=== PATIENT | male | born 1950 | race Caucasian/White ===

== ENCOUNTER 2016-07-12 03:15 | Emergency (ER) | payer OTHER ==
[2016-07-12] MEDS ORDERED: NS 1,000 ML IV ONE (03:20)
--- NOTE | 2016-07-12 03:24 | EDPHY ---
H & P HPI/ROS: HPI CHIEF COMPLAINT: "I feel weird after taking oxycodone" HISTORY OF PRESENT ILLNESS: This patient very pleasant 66-year-old male who presents emergency room by EMS due states that he had a dental extraction on Monday and since then has been having dental pain. Decided this evening around 7:00 p.m. to take oxycodone that was old, Tylenol and Motrin. Since then he states that he has felt very foggy. [place] off. Also tells me that he has a headache. Top of his head. Denies trauma. Denies neck pain, denies chest pain or shortness of breath. Denies generalized weakness. He tells me that he just feels like he is under the weather. No focal complaint. Denies chills, rigors , fevers but Past Medical History: Atrial fib, hypertension, hyperlipidemia Past Surgical History: AICD/pacer left chest, recent dental extraction Social History: Lives locally, presents by himself, history of alcohol use tobacco use and marijuana use Family History: noncontributory ROS REVIEW OF SYSTEMS: A comprehensive 10 point review of systems is otherwise negative aside from elements mentioned in the history of present illness. Exam Constitutional appears well nontoxic triage nursing summary reviewed, vital signs reviewed, awake/alert. Eyes normal conjunctivae and sclera, EOMI, PERRLA. HENT normal inspection, atraumatic, moist mucus membranes, no epistaxis, neck supple/ no meningismus, no raccoon eyes. Respiratory clear to auscultation bilaterally, normal breath sounds, no respiratory distress, no wheezing. Cardiovascular rate normal, regular rhythm, no murmur, no edema, distal pulses normal. Gastrointestinal soft, non-tender, no rebound, no guarding, normal bowel sounds, no distension, no pulsatile mass. Genitourinary no CVA tenderness. Musculoskeletal no midline vertebral tenderness, full range of motion, no calf swelling, no tenderness of extremities, no meningismus, good pulses, neurovascularly intact. Skin pink, warm, & dry, no rash, skin atraumatic. Neurologic normal neurological exam,awake, alert and oriented x 3, AAOx3, moves all 4 extremities equally, motor intact, sensory intact, CN II-XII intact , normal cerebellar, normal vision, normal speech. Psychiatric normal mood/affect. Heme/Lymph/Immune no lymphadenopathy. Differential Diagnosis: Includes but is not limited to in a particular order; hurts her disturbance, dehydration, narcotic adverse effect, side effects, infection doubt acute bleed or stroke, doubt acute [place] Medical Decision Making: plan for patient IV establishment full cardiac rehab nurse , check EKG, troponin blood work electrolytes, chest x-ray and CT head given the complaint of not feeling exactly right and headache. Re-evaluation: EKG interpretation by me on record in [employer] system. Impression time of EKG 3:27 a.m. sinus rhythm rate of 76 some motion artifact seen in 1-3 AVF borderline T-wave abnormalities seen in V4 V5 V6. Similar to previous EKG dated on 12/30/2014. CT scan of the head without IV contrast. The results of the study are negative for acute intracranial abnormality The study was read by Dr. Gaming. I viewed the images myself on the PACS system. 0423AM: Re-examination at this time blood work has been reviewed is unremarkable CT head unremarkable chest x-ray unremarkable. EKG no ischemia. Patient resting comfortably. Asking for Tylenol for a toothache. Will provide Tylenol. Patient is agreeable for discharge planning. Agreeable for discharge home. He understands return emergency room if there is any worsening symptoms questions or concerns. Source: Patient, EMS - Personal History Tetanus Vaccine Date: < 10 YEARS - Medical/Surgical History Hx Asthma: No Hx Chronic Respiratory Disease: No Hx Diabetes: Yes Hx Cardiac Disease: Yes Hx Renal Disease: No Hx Cirrhosis: No Hx Alcoholism: Yes Hx HIV/AIDS: No Hx Splenectomy or Spleen Trauma: No Other PMH: DM, acid reflux, PPM/AICD, perieodontal disease,atrial tachycardia, ablation, afib, pacemaker/defibrillator, bipolar, CHF, panic attacks, anxiety, high cholesterol, cardiomyopathy, gerd,DIABETES. - Social History Smoking Status: Former smoker Constitutional: Initial Vital Signs Temperature (C) 36.9 C 07/12/16 03:24 Heart Rate 82 07/12/16 03:24 Respiratory Rate 20 07/12/16 03:24 Blood Pressure 176/100 H 07/12/16 03:24 O2 Sat (%) 98 07/12/16 03:24 O2 Delivery Mode Room Air Allergies/Adverse Reactions: Penicillins Allergy (Verified 07/12/16 03:24) Home Medications: Medication Instructions Recorded Amitriptyline HCl 100 mg PO HS 07/16/13 Carvedilol [Coreg (*)] 25 mg PO BIDMEAL 07/16/13 Metformin HCl [Metformin 1000 mg] 1,000 mg PO BIDMEAL 07/16/13 [place]-3 Fatty Acids [Fish Oil 1000 4,000 mg PO DAILY 07/16/13 mg (*)] Aspirin [Aspirin 81mg (*)] 81 mg PO DAILY 11/26/14 Atorvastatin Calcium [Lipitor 40 40 mg PO DAILY06 11/26/14 mg (*)] Fenofibrate [Tricor 145 mg (*)] 145 mg PO DAILY 11/26/14 Gabapentin [Neurontin 300 MG (*)] mg PO TID 11/26/14 Herbals/Supplements -Info Only 1 ea PO DAILY 11/26/14 Insulin NPH Human Isophane 60 unit SQ HS 11/26/14 [Novolin N] clonazePAM [klonoPIN (*)] 2 mg PO HS 11/26/14 Levothyroxine PO DAILY06 10/20/15 Omeprazole Magnesium [Prilosec Otc] 20 mg PO DAILY06 10/20/15 hydrOXYzine HCL [Vistaril] 50 mg PO DAILY06 10/20/15 Bacitracin Ointment 1 [place] TP BID #1 pkt 12/21/15 Cephalexin [Keflex] 500 mg PO Q6H #28 cap 12/21/15 Medical Decision Making - Data Points Laboratory Results: Laboratory Results 07/12/16 03:18 07/12/16 03:18 07/12/16 07/12/16 07/12/16 03:18 03:18 03:18 WBC 13.76 10^3/uL H 10^3/uL (3.80-9.50) RBC 5.08 10^6/uL 10^6/uL (4.40-6.38) Hgb 14.7 g/dL g/dL (13.7-17.5) Hct 43.7 % % (40.0-51.0) MCV 86.0 fL fL (81.5-99.8) MCH 28.9 pg pg (27.9-34.1) MCHC 33.6 g/dL g/dL (32.4-36.7) RDW 13.3 % % (11.5-15.2) Plt Count 287 10^3/uL 10^3/uL (150-400) MPV 10.0 fL fL (8.7-11.7) Neut % (Auto) 59.5 % % (39.3-74.2) Lymph % (Auto) 21.3 % % (15.0-45.0) [place] % (Auto) 10.0 % % (4.5-13.0) Eos % (Auto) 8.1 % H % (0.6-7.6) Baso % (Auto) 0.7 % % (0.3-1.7) Nucleat RBC Rel Count 0.0 % % (0.0-0.2) Absolute Neuts (auto) 8.19 10^3/uL H 10^3/uL (1.70-6.50) Absolute Lymphs (auto) 2.93 10^3/uL 10^3/uL (1.00-3.00) Absolute Monos (auto) 1.37 10^3/uL H 10^3/uL (0.30-0.80) Absolute Eos (auto) 1.12 10^3/uL H 10^3/uL (0.03-0.40) Absolute Basos (auto) 0.10 10^3/uL 10^3/uL (0.02-0.10) Absolute Nucleated RBC 0.00 10^3/uL 10^3/uL (0-0.01) Immature Gran % 0.4 % % (0.0-1.1) Immature Gran # 0.05 10^3/uL 10^3/uL (0.00-0.10) PT 13.1 SEC SEC (12.0-15.0) INR 1.00 (0.83-1.16) APTT 23.6 SEC SEC (23.0-38.0) Sodium 133 mEq/L L mEq/L (134-144) Potassium 4.7 mEq/L mEq/L (3.5-5.2) Chloride 96 mEq/L L mEq/L (97-110) Carbon Dioxide 25 mEq/l mEq/l (22-31) Anion Gap 12 mEq/L mEq/L (8-16) BUN 20 mg/dL mg/dL (7-23) Creatinine 0.9 mg/dL mg/dL (0.7-1.3) Estimated GFR > 60 Glucose 122 mg/dL H mg/dL (70-100) Calcium 10.0 mg/dL mg/dL (8.5-10.4) Magnesium 1.7 mg/dL mg/dL (1.6-2.3) Total Bilirubin 1.0 mg/dL mg/dL (0.1-1.4) Conjugated Bilirubin 0.4 mg/dL mg/dL (0.0-0.5) Unconjugated Bilirubin 0.6 mg/dL mg/dL (0.0-1.1) AST 25 IU/L IU/L (17-59) ALT 32 IU/L IU/L (21-72) Alkaline Phosphatase 56 IU/L IU/L (38-126) Creatine Kinase 134 IU/L IU/L (0-224) CK-MB (CK-2) Fraction 1.90 ng/mL ng/mL (0-3.19) Troponin I < 0.012 ng/mL ng/mL (0-0.034) NT-Pro-B Natriuret Pep 121 pg/mL pg/mL (0-125) Total Protein 7.8 g/dL g/dL (6.3-8.2) Albumin 4.2 g/dL g/dL (3.5-5.0) Lipase 106.0 IU/L IU/L (23-300) Medications Given: Discontinued Medications Sodium Chloride (Ns) 1,000 mls @ 0 mls/hr IV ONCE ONE PRN Reason: Wide Open Stop: 07/12/16 03:21 Last Admin: 07/12/16 03:29 Dose: 1,000 mls Departure - Departure Disposition: Home, Routine, Self-Care Clinical Impression: Toothache Condition: Good Instructions: Toothache (ED) Referrals: Patient,NotPresent [Unknown] - As per Instructions
[2016-07-12 03:27] VITALS: RESP 20; TEMP 98.4
--- NOTE | 2016-07-12 03:29 | CPEKG ---
Heart Rate: 76 RR Interval: 789 P-R Interval: 184 QRSD Interval: 90 QT Interval: 392 QTC Interval: 441 P [place]: 62 QRS [place]: -20 T Wave [place]: -23 EKG Severity - BORDERLINE ECG - EKG Impression: SINUS RHYTHM EKG Impression: BORDERLINE LEFT AXIS DEVIATION EKG Impression: BORDERLINE T ABNORMALITIES, DIFFUSE LEADS Electronically Signed By: Mo Schilling 13-Jul-2016 23:55:19
[2016-07-12 03:34] LABS: % IMMATURE GRANULYOCYTES 0.4 % (0.0-1.1); ABSOLUTE IMMATURE GRANULOCYTES 0.05 10^3/uL (0.00-0.10); ADD DIFF? NO; ADD MORPH? NO; ADD SCAN? NO; ATYPICAL LYMPHOCYTE FLAG 10 (0-99); FRAGMENT RBC FLAG 0 (0-99); HEMATOCRIT 43.7 % (40.0-51.0); HEMOGLOBIN 14.7 g/dL (13.7-17.5); LEFT SHIFT FLG 0 (0-99); LIPEMIA HEMOLYSIS FLAG 80 (0-99); MEAN CELL HEMOGLOBIN 28.9 pg (27.9-34.1); MEAN CELL HEMOGLOBIN CONCENTR. 33.6 g/dL (32.4-36.7); PLATELET CLUMPS FLAG 0 (0-99); PLATELET COUNT 287 10^3/uL (150-400); RED BLOOD CELL COUNT 5.08 10^6/uL (4.40-6.38); RED CELL DISTRIBUTION WIDTH 13.3 % (11.5-15.2)
[2016-07-12 03:41] LABS: ALANINE AMINOTRANSFERASE 32 IU/L (21-72); ALBUMIN 4.2 g/dL (3.5-5.0); ALKALINE PHOSPHATASE 56 IU/L (38-126); ANION GAP 12 mEq/L (8-16); ASPARTATE AMINOTRANSFERASE 25 IU/L (17-59); BILIRUBIN-CONJUGATED 0.4 mg/dL (0.0-0.5); BILIRUBIN-UNCONJUGATED 0.6 mg/dL (0.0-1.1); CARBON DIOXIDE 25 mEq/l (22-31); CHLORIDE 96 mEq/L (97-110); CREATININE 0.9 mg/dL (0.7-1.3); GLOMERULAR FILTRATION RATE > 60; GLUCOSE 122 mg/dL (70-100); MAGNESIUM 1.7 mg/dL (1.6-2.3); POTASSIUM 4.7 mEq/L (3.5-5.2); SODIUM 133 mEq/L (134-144); TOTAL PROTEIN 7.8 g/dL (6.3-8.2)
[2016-07-12 03:53] LABS: TROPONIN I < 0.012 ng/mL (0-0.034)
[2016-07-12 03:54] LABS: APTT 23.6 SEC (23.0-38.0); PROTIME(PATIENT) 13.1 SEC (12.0-15.0)
[2016-07-12] MEDS ORDERED: ACETAMINOPHEN 500 MG TAB PO ONE (04:22)
[2016-07-12 04:51] VITALS: BP 163/99; PULSE 79; O2SAT 91
== END 2016-07-12 04:51 | disposition home or self-care (01) ==
LOC: EDUNIT#
DX: K08.89 Other specified disorders of teeth and supporting structures (principal); I10 Essential (primary) hypertension; E11.9 Type 2 diabetes mellitus without complications; I50.9 Heart failure, unspecified; Z79.82 Long term (current) use of aspirin; Z79.4 Long term (current) use of insulin; Z87.891 Personal history of nicotine dependence

== ENCOUNTER 2016-09-19 15:20 | Emergency (ER) | payer OTHER ==
--- NOTE | 2016-09-19 15:38 | CPEKG ---
Heart Rate: 83 RR Interval: 723 P-R Interval: 184 QRSD Interval: 94 QT Interval: 372 QTC Interval: 437 P [place]: 43 QRS [place]: -20 T Wave [place]: 1 EKG Severity - BORDERLINE ECG - EKG Impression: BORDERLINE LEFT AXIS DEVIATION EKG Impression: SINUS Electronically Signed By: Toma Hung 19-Sep-2016 23:02:44
--- NOTE | 2016-09-19 15:51 | EDPHY ---
H & P Stated Complaint: "I just don't feel right". Has a pacemaker. Time Seen by Provider: 09/19/16 15:31 HPI/ROS: CHIEF COMPLAINT: I feel horrible, weird. I can' t explain it. HISTORY OF PRESENT ILLNESS: This is a 66-year-old male insulin-dependent diabetic with a pacemaker/AICD, history of CHF and cardiomyopathy who presents stating that he just feels "weird". He denies pain. He specifically denies chest pain, shortness of breath, abdominal pain, recent vomiting or diarrhea. He states that he feels as if he might have heat stroke. He has not been in any extreme heat. This feeling has persisted throughout the day. He felt well yesterday. However, he states [place] like this and had to sit in the shade. He checked his blood sugar before coming to the emergency department and it was 208. He has not been checking it regularly. He takes 40 units of Novolin in the morning and in the evening. He took this morning's dose and he ate a meal. He has been compliant with his medications. REVIEW OF SYSTEMS: A ten point review of systems was performed and is negative with the exception of the items mentioned in the HPI. Source: Patient, Old records - Personal History Tetanus Vaccine Date: < 10 YEARS - Medical/Surgical History Hx Asthma: No Hx Chronic Respiratory Disease: No Hx Diabetes: Yes Hx Cardiac Disease: Yes Hx Renal Disease: No Hx Cirrhosis: No Hx Alcoholism: Yes Hx HIV/AIDS: No Hx Splenectomy or Spleen Trauma: No Other PMH: 1. atrial tachycardia, ablation, afib 2. pacemaker/defibrillator, 3. bipolar 4. CHF 5. panic attacks, anxiety 6. high cholesterol 7. cardiomyopathy, 8. gerd 9.DIABETES. - Social History Smoking Status: Former smoker Drug Use: None Additional Social History: He is not . He collects disability. - Physical Exam Exam: General Appearance: Alert. Vital signs reviewed. Blood pressure at triage 157 /99. Eyes: Pupils equal and round, no conjunctival injection, no discharge. Anicteric. ENT, Mouth: Mucous membranes are moist, no oropharyngeal erythema or edema. Neck: No lymphadenopathy, supple. No jugular venous distention. Respiratory: Lungs are clear to auscultation; no wheezes, rales, or rhonchi. Cardiovascular: Regular rate and rhythm; no murmur, rub, or gallop. Gastrointestinal: Abdomen is soft and nontender, no masses or organomegaly, bowel sounds normal. Skin: Warm and dry, no rashes on exposed skin, normal color. Back: Nontender to palpation over the thoracolumbar spine. No CVAT. Extremities: No lower extremity edema, no calf tenderness or swelling. Neurological: Alert and oriented. Moving all four extremities easily and equally. Cranial nerves II through XII are examined and are intact (visual acuity not tested). Strength is 5 over 5 bilaterally with testing of all major motor groups. Sensation is intact to light touch over all 4 extremities. Psychiatric: Normal affect. Constitutional: Initial Vital Signs Temperature (C) 36.4 C 09/19/16 15:26 Heart Rate 86 09/19/16 15: Respiratory Rate 18 09/19/16 15:26 Blood Pressure 157/99 H 09/19/16 15: O2 Sat (%) 98 09/19/16 15:26 O2 Delivery Mode Room Air O2 (L/minute) 2 Allergies/Adverse Reactions: Penicillins Allergy (Verified 07/12/16 03:24) Home Medications: Medication Instructions Recorded Amitriptyline HCl 100 mg PO HS 07/16/13 Carvedilol [Coreg (*)] 25 mg PO BIDMEAL 07/16/13 Metformin HCl [Metformin 1000 mg] 1,000 mg PO BIDMEAL 07/16/13 [place]-3 Fatty Acids [Fish Oil 1000 4,000 mg PO DAILY 07/16/13 mg (*)] Aspirin [Aspirin 81mg (*)] 81 mg PO DAILY 11/26/14 Atorvastatin Calcium [Lipitor 40 40 mg PO DAILY06 11/26/14 mg (*)] Fenofibrate [Tricor 145 mg (*)] 145 mg PO DAILY 11/26/14 Gabapentin [Neurontin 300 MG (*)] mg PO TID 11/26/14 Herbals/Supplements -Info Only 1 ea PO DAILY 11/26/14 Insulin NPH Human Isophane 60 unit SQ HS 11/26/14 [Novolin N] clonazePAM [klonoPIN (*)] 2 mg PO HS 11/26/14 Levothyroxine PO DAILY06 10/20/15 Omeprazole Magnesium [Prilosec Otc] 20 mg PO DAILY06 10/20/15 hydrOXYzine HCL [Vistaril] 50 mg PO DAILY06 10/20/15 Bacitracin Ointment 1 [place] TP BID #1 pkt 12/21/15 Cephalexin [Keflex] 500 mg PO Q6H #28 cap 12/21/15 Medical Decision Making - Diagnostics EKG Interpretation: 12 lead EKG is interpreted in Trace master View by emergency department physician. Sinus rhythm with a rate of 83. ED Course/Re-evaluation: I spoke with the furniture lumber production worker oncology registrar about this patient's presentation. Echocardiogram is recommended. Echocardiogram shows ejection fraction 50-55%. There is evidence of diastolic dysfunction. Labs are reviewed and are essentially normal. His blood pressure has normalized during his stay in the emergency department. He was examined 2 more times and at 6:45 p.m., he is feeling better. He is comfortable returning home. He is due to visit his furniture lumber production worker and will call to schedule an appointment tomorrow morning. We discussed the danger signs that should prompt him to return to the emergency department. It is unclear to me exactly what has caused his malaise. His temperature was normal when he arrived here and I do not really suspect heat exhaustion although that is his main concern. His heart rate has been normal and I do not suspect pacemaker malfunction. Troponin is normal. Chest x-ray does not show evidence of heart failure or infection. His electrolytes are normal. Part of what he describes sounds a bit like presyncope and I am going to give him information concerning presyncope. Differential Diagnosis: Syncope including but not limited to vasovagal syncope, arrhythmia, dehydration , and blood loss. - Data Points Laboratory Results: Laboratory Results 09/19/16 15:45 09/19/16 15:45 Departure - Departure Disposition: Home, Routine, Self-Care Clinical Impression: Pre-syncope Condition: Good Instructions: Near Syncope (ED) Additional Instructions: Call tomorrow morning to schedule an appointment with her furniture lumber production worker. If you have any new or concerning symptoms, if you again feel poorly, if you develop chest pain or shortness of breath-- come back and we will take another look. Referrals: LUISANA CHATTERJEE [Primary Care Provider] - As per Instructions Luis Gooden MD [Medical Doctor] - As per Instructions
[2016-09-19 15:53] LABS: % IMMATURE GRANULYOCYTES 0.3 % (0.0-1.1); ABSOLUTE IMMATURE GRANULOCYTES 0.03 10^3/uL (0.00-0.10); ADD DIFF? NO; ADD MORPH? NO; ADD SCAN? NO; ATYPICAL LYMPHOCYTE FLAG 10 (0-99); FRAGMENT RBC FLAG 0 (0-99); HEMOGLOBIN 14.3 g/dL (13.7-17.5); LEFT SHIFT FLG 0 (0-99); LIPEMIA HEMOLYSIS FLAG 90 (0-99); MEAN CELL HEMOGLOBIN 28.9 pg (27.9-34.1); MEAN PLATELET VOLUME 10.2 fL (8.7-11.7); PLATELET CLUMPS FLAG 0 (0-99); PLATELET COUNT 267 10^3/uL (150-400); RED BLOOD CELL COUNT 4.94 10^6/uL (4.40-6.38)
[2016-09-19 16:13] LABS: ANION GAP 13 mEq/L (8-16); CARBON DIOXIDE 19 mEq/l (22-31); CHLORIDE 102 mEq/L (97-110); CREATININE 0.8 mg/dL (0.7-1.3); GLOMERULAR FILTRATION RATE > 60; GLUCOSE 124 mg/dL (70-100); POTASSIUM 4.4 mEq/L (3.5-5.2); SODIUM 134 mEq/L (134-144)
[2016-09-19 16:25] LABS: TROPONIN I < 0.012 ng/mL (0-0.034)
--- NOTE | 2016-09-19 17:17 | ECHO ---
[id number] + + [address] : : [place] [address] : : [phone] + Adult Echocardiographic Report + ------+ :Name: ROSS TARANGO SStudy Date: 09/19/2016 04:31 PM : : Hospital Admission Number: [id number] Locati on: ER: :: 1950 Gender: Male Height: 72 in : :Age: 66 yrs Race: WH,White Weight: 200 lb : :Reason For Study: Fatigue/presyncope : : BSA: 2.1 meter s2 : :History: Pacer/Cardiomyopathy/ablation : + ------+ MMode/2D Measurements \T\ Calculations LVLd ap4: 7.7 cm SV(MOD-sp4): 36.0 ml EDV(MOD-sp4): 67.0 ml LVLs ap4: 6.7 cm ESV(MOD-sp4): 31.0 ml EF(MOD-sp4): 53.7 % Normal Measurement Values: + + :LVIDd (3.5-5.7cm) IVSd (0.6-1.1cm) LVPWd (0.6-1.1cm) Aortic Root (2.0-3.7cm)Left Atrium (1.5-4.0cm): :LV Vol(d) (76-115ml) LV Vol(s) (29-48ml) [place] Fraction (50-65%)PV Eleazar (0.6- 1.2m/s) TV Eleazar (0.4-1.0m/s) : :MV E Eleazar (0.8-1.0m/s)MV A Eleazar (0.3-1.0m/s)LVOT Eleazar (0.7-1.2m/s) Asc Ao Eleazar ( 0.9-1.8m/s) : + + Doppler Measurements \T\ Calculations MV E max eleazar: 45.9 cm/sec MV A max eleazar: 70.1 cm/sec MV E/A: 0.65 Left Ventricle The left ventricle is normal in size. EF estimate is 50-55%. There is Doppler evidence for diastolic dysfunction. Right Ventricle There is a pacemaker lead in the right ventricle. Conclusion Limited 2-D echo. Limited echo to evaluate LV function. EF estimate is 50-55%. There is Doppler evidence for diastolic dysfunction. Final Reading Physician: Verito Baziz signed on 09/19/2016 05:16 PM Ordering Physician: BALBIR EAGLE Performed By: Kiah Day RDCS
[2016-09-19 18:09] VITALS: O2SAT 97
[2016-09-19 19:06] VITALS: BP 125/92; PULSE 78; RESP 20; TEMP 98.1
== END 2016-09-19 19:07 | disposition home or self-care (01) ==
DX: R55 Syncope and collapse (principal); E11.65 Type 2 diabetes mellitus with hyperglycemia; Z79.4 Long term (current) use of insulin; Z79.84 Long term (current) use of oral hypoglycemic drugs; Z87.891 Personal history of nicotine dependence

== ENCOUNTER → 2016-09-26 | Outpatient (CLI) | payer OTHER ==
[~2016-09-26] MED LIST: IOPAMIDOL (ISOVUE-300) 100 ML BTL ONE
== END ==
LOC: FIMAGING 13:55
PROVIDERS: ATTEND Family Medicine
DX: M51.34 Other intervertebral disc degeneration, thoracic region (principal); M51.36 Other intervertebral disc degeneration, lumbar region; M51.37 Other intervertebral disc degeneration, lumbosacral region
CPT/HCPCS: 72129; 72132; Q9967

== ENCOUNTER 2016-09-27 19:27 | Emergency (ER) | payer OTHER ==
--- NOTE | 2016-09-27 19:32 | EDPHY ---
HPI/HX/ROS/PE/MDM Narrative: CHIEF COMPLAINT: "Feeling strange" HISTORY OF PRESENT ILLNESS: The patient is a 66-year-old male, brought in by EMS for "an overwhelming feeling that my physical body is going to quit working ". The patient told EMS he ate multiple edibles, took CBD, and 5mg Valium today for his back pain. After taking all of this he walked to the fire station and told the fire team he felt strange. Patient states "my body takes a downward spiral where I'm just close to dying." He feels as though he has been poisoned and states this feeling comes intermittently. The patient was here on 09/19 for complaints of feeling "weird". He had an ECHO performed that showed 50-55% ejection fraction. The patient reports feeling slight nausea and shortness of breath today. He denies chest pain or palpitations. During transport the patient was found to be 86% on room air, Pulse 94. No fever, chills, vomiting, diarrhea, urinary complaints, or lightheadedness. REVIEW OF SYSTEMS: Aside from elements discussed in the HPI, a comprehensive 10-point review of systems was reviewed and is negative. PAST MEDICAL HISTORY: Atrial tachycardia, ablation, Afib, Pacemaker/ defibrillator, Bipolar, CHF, Panic attacks, Anxiety, High cholesterol, Cardiomyopathy, GERD, Diabetes. SOCIAL HISTORY: Lives in [place] on his family property. No alcohol use. Former cigarette smoker. VITAL SIGNS: Reviewed by me GENERAL: Well-developed, well-nourished, resting comfortably in no respiratory distress. HEENT: Atraumatic. Eyes: No icterus, no injection. 5mm pupils, reactive. Mouth: dry mucous membranes. No erythema or lesions. Neck: supple with no adenopathy. LUNGS: Clear to auscultation bilaterally, no wheezes, rhonchi or rales. CARDIAC: Slightly tachycardic, regular rhythm, no rubs, murmurs or gallops. ABDOMEN: Obese, nontender BACK: No CVA tenderness. EXTREMITIES: No trauma. No edema. Range of motion is normal throughout. NEURO: Alert and oriented, grossly nonfocal. SKIN: Warm and dry, no rash. PSYCHIATRIC: Normal mentation, no agitation. Portions of this note were transcribed by a medical accountant. I personally performed a history, physical exam, medical decision making, and confirmed accuracy of information the transcribed note. ED Course: Patient presents with an overall strange feeling after eating multiple edibles, taking CBD, as well as 5mg Valium today. He notes some nausea and shortness of breath. I reviewed the patient's past medical records. Patient was here 09/19/16 and had ECHO done that reveal ejection fraction 50-55%. Plan for EKG, lab work including BMP, CBC, Troponin, LFTs, Creatinine. UA and drug screen ordered. 12-LEAD EKG: Please see the full report in [facility]. My interpretation: Sinus rhythm, nonspecific T wave changes. Patient has normal lab work. Acetaminophen level is not elevated. 10:00 p.m.: I reevaluated the patient. He is feeling better, no longer feeling "doomed". Patient would like to be discharged home. MDM: Differential diagnoses for the patient's symptom complex was considered including but not limited to PTSD, anxiety, depression, suicidal ideation, electrolyte abnormalities, drug or alcohol use, drug or alcohol withdrawal, hypoxemia, hypoglycemia. - Data Points Laboratory Results: Laboratory Results 09/27/16 20:00 09/27/16 20:00 09/27/16 09/27/16 09/27/16 21:25 20:00 20:00 WBC RBC Hgb Hct MCV MCH MCHC RDW Plt Count MPV Neut % (Auto) Lymph % (Auto) [place] % (Auto) Eos % (Auto) Baso % (Auto) Nucleat RBC Rel Count Absolute Neuts (auto) Absolute Lymphs (auto) Absolute Monos (auto) Absolute Eos (auto) Absolute Basos (auto) Absolute Nucleated RBC Immature Gran % Immature Gran # Sodium 133 mEq/L L mEq/L (134-144) Potassium 5.1 mEq/L mEq/L (3.5-5.2) Chloride 104 mEq/L mEq/L (97-110) Carbon Dioxide 17 mEq/l L mEq/l (22-31) Anion Gap 12 mEq/L mEq/L (8-16) BUN 26 mg/dL H mg/dL (7-23) Creatinine 1.1 mg/dL mg/dL (0.7-1.3) Estimated GFR > 60 Glucose 161 mg/dL H mg/dL (70-100) Calcium 9.3 mg/dL mg/dL (8.5-10.4) Total Bilirubin 0.7 mg/dL mg/dL (0.1-1.4) Conjugated Bilirubin 0.3 mg/dL mg/dL (0.0-0.5) Unconjugated Bilirubin 0.4 mg/dL mg/dL (0.0-1.1) AST 31 IU/L IU/L (17-59) ALT 43 IU/L IU/L (21-72) Alkaline Phosphatase 55 IU/L IU/L (38-126) Creatine Kinase 186 IU/L IU/L (0-224) Troponin I < 0.012 ng/mL ng/mL (0-0.034) Total Protein 7.3 g/dL g/dL (6.3-8.2) Albumin 3.9 g/dL g/dL (3.5-5.0) Lipase 114.0 IU/L IU/L (23-300) Urine Color PALE YELLOW Urine Appearance CLEAR Urine pH 5.0 (5.0-7.5) Ur Specific [place] 1.012 (1.002-1.030) Urine Protein NEGATIVE (NEGATIVE) Urine Ketones NEGATIVE (NEGATIVE) Urine Blood NEGATIVE (NEGATIVE) Urine Nitrate NEGATIVE (NEGATIVE) Urine Bilirubin NEGATIVE (NEGATIVE) Urine Urobilinogen NEGATIVE EU EU (0.2-1.0) Ur Leukocyte Esterase NEGATIVE (NEGATIVE) Urine RBC 1-3 /hpf /hpf (0-3) Urine WBC 1-3 /hpf /hpf (0-3) Ur Epithelial Cells NONE SEEN /lpf /lpf (NONE-1+) Urine Mucus TRACE /lpf /lpf (NONE-1+) Urine Sperm PRESENT /hpf /hpf (NONE SEEN) Urine Glucose NEGATIVE (NEGATIVE) Salicylates < 1.0 mg/dL L mg/dL (2.0-20.0) Urine Opiates Screen NEGATIVE (NEGATIVE) Acetaminophen < 10 mcg/mL L mcg/mL (10.0-30.0) Urine Barbiturates NEGATIVE (NEGATIVE) Ur Phencyclidine Scrn NEGATIVE (NEGATIVE) Ur Amphetamine Screen NEGATIVE (NEGATIVE) U Benzodiazepines Scrn NON-NEGATIVE H (NEGATIVE) Urine Cocaine Screen NEGATIVE (NEGATIVE) U Marijuana (THC) Screen NON-NEGATIVE H (NEGATIVE) 09/27/16 20:00 WBC 9.79 10^3/uL H 10^3/uL (3.80-9.50) RBC 4.45 10^6/uL 10^6/uL (4.40-6.38) Hgb 12.8 g/dL L g/dL (13.7-17.5) Hct 38.4 % L % (40.0-51.0) MCV 86.3 fL fL (81.5-99.8) MCH 28.8 pg pg (27.9-34.1) MCHC 33.3 g/dL g/dL (32.4-36.7) RDW 14.3 % % (11.5-15.2) Plt Count 283 10^3/uL 10^3/uL (150-400) MPV 11.1 fL fL (8.7-11.7) Neut % (Auto) 59.9 % % (39.3-74.2) Lymph % (Auto) 23.1 % % (15.0-45.0) [place] % (Auto) 10.1 % % (4.5-13.0) Eos % (Auto) 5.5 % % (0.6-7.6) Baso % (Auto) 1.0 % % (0.3-1.7) Nucleat RBC Rel Count 0.0 % % (0.0-0.2) Absolute Neuts (auto) 5.86 10^3/uL 10^3/uL (1.70-6.50) Absolute Lymphs (auto) 2.26 10^3/uL 10^3/uL (1.00-3.00) Absolute Monos (auto) 0.99 10^3/uL H 10^3/uL (0.30-0.80) Absolute Eos (auto) 0.54 10^3/uL H 10^3/uL (0.03-0.40) Absolute Basos (auto) 0.10 10^3/uL 10^3/uL (0.02-0.10) Absolute Nucleated RBC 0.00 10^3/uL 10^3/uL (0-0.01) Immature Gran % 0.4 % % (0.0-1.1) Immature Gran # 0.04 10^3/uL 10^3/uL (0.00-0.10) Sodium Potassium Chloride Carbon Dioxide Anion Gap BUN Creatinine Estimated GFR Glucose Calcium Total Bilirubin Conjugated Bilirubin Unconjugated Bilirubin AST ALT Alkaline Phosphatase Creatine Kinase Troponin I Total Protein Albumin Lipase Urine Color Urine Appearance Urine pH Ur Specific [place] Urine Protein Urine Ketones Urine Blood Urine Nitrate Urine Bilirubin Urine Urobilinogen Ur Leukocyte Esterase Urine RBC Urine WBC Ur Epithelial Cells Urine Mucus Urine Sperm Urine Glucose Salicylates Urine Opiates Screen Acetaminophen Urine Barbiturates Ur Phencyclidine Scrn Ur Amphetamine Screen U Benzodiazepines Scrn Urine Cocaine Screen U Marijuana (THC) Screen Medications Given: Discontinued Medications Sodium Chloride (Ns) 500 mls @ 1,000 mls/hr IV ONCE ONE PRN Reason: Protocol Stop: 09/27/16 20:20 Last Admin: 09/27/16 20:00 Dose: 500 mls General Initial Vital Signs: Initial Vital Signs Temperature (C) 37.2 C 09/27/16 19:35 Heart Rate 108 H 09/27/16 19:35 Respiratory Rate 18 09/27/16 19:35 Blood Pressure 133/91 H 09/27/16 19:35 O2 Sat (%) 92 09/27/16 19:35 O2 Delivery Mode Room Air Allergies/Adverse Reactions: Penicillins Allergy (Verified 07/12/16 03:24) Home Medications: Medication Instructions Recorded Carvedilol [Coreg (*)] 25 mg PO BIDMEAL 07/16/13 Metformin HCl [Metformin 1000 mg] 1,000 mg PO BIDMEAL 07/16/13 [place]-3 Fatty Acids [Fish Oil 1000 4,000 mg PO DAILY 07/16/13 mg (*)] Aspirin [Aspirin 81mg (*)] 81 mg PO DAILY 11/26/14 Herbals/Supplements -Info Only 1 ea PO DAILY 11/26/14 Insulin NPH Human Isophane 60 unit SQ HS 11/26/14 [Novolin N] clonazePAM [klonoPIN (*)] 2 mg PO HS 11/26/14 Levothyroxine PO DAILY06 10/20/15 Omeprazole Magnesium [Prilosec Otc] 20 mg PO DAILY06 10/20/15 Diazepam [Valium 5 MG (*)] 09/27/16 Lisinopril 09/27/16 Seroquel 09/27/16 Departure - Departure Disposition: Home, Routine, Self-Care Clinical Impression: Anxiety, Marijuana use Condition: Good Instructions: Medicinal Use of Cannabis (ED), Anxiety (ED) Additional Instructions: Please stop using marijuana. Drink plenty of fluids. Followup with your primary care physician as needed. Referrals: LUISANA CHATTERJEE [Primary Care Provider] - As per Instructions Report Scribed for: Nadya Brambila Report Scribed by: Maira Montano Date of Report: 09/27/16 Time of Report: 19:50
[2016-09-27 19:37] VITALS: TEMP 99
[2016-09-27] MEDS ORDERED: NS 500 ML IV ONE (19:51)
[2016-09-27 20:20] LABS: % IMMATURE GRANULYOCYTES 0.4 % (0.0-1.1); ABSOLUTE IMMATURE GRANULOCYTES 0.04 10^3/uL (0.00-0.10); ADD DIFF? NO; ADD MORPH? NO; ADD SCAN? NO; ATYPICAL LYMPHOCYTE FLAG 0 (0-99); FRAGMENT RBC FLAG 0 (0-99); HEMATOCRIT 38.4 % (40.0-51.0); HEMOGLOBIN 12.8 g/dL (13.7-17.5); LEFT SHIFT FLG 0 (0-99); LIPEMIA HEMOLYSIS FLAG 80 (0-99); MEAN CELL HEMOGLOBIN 28.8 pg (27.9-34.1); MEAN CELL HEMOGLOBIN CONCENTR. 33.3 g/dL (32.4-36.7); MEAN CELL VOLUME 86.3 fL (81.5-99.8); MEAN PLATELET VOLUME 11.1 fL (8.7-11.7); PLATELET CLUMPS FLAG 70 (0-99); PLATELET COUNT 283 10^3/uL (150-400); RED BLOOD CELL COUNT 4.45 10^6/uL (4.40-6.38); RED CELL DISTRIBUTION WIDTH 14.3 % (11.5-15.2)
--- NOTE | 2016-09-27 20:25 | CPEKG ---
Heart Rate: 98 RR Interval: 612 P-R Interval: 180 QRSD Interval: 90 QT Interval: 356 QTC Interval: 455 P [place]: 44 QRS [place]: -23 T Wave [place]: -8 EKG Severity - BORDERLINE ECG - EKG Impression: SINUS RHYTHM EKG Impression: BORDERLINE LEFT AXIS DEVIATION EKG Impression: BORDERLINE T ABNORMALITIES, INFERIOR LEADS Electronically Signed By: Nadya Brambila 28-Sep-2016 00:42:25
[2016-09-27 20:48] LABS: ALANINE AMINOTRANSFERASE 43 IU/L (21-72); ALBUMIN 3.9 g/dL (3.5-5.0); ALKALINE PHOSPHATASE 55 IU/L (38-126); ANION GAP 12 mEq/L (8-16); ASPARTATE AMINOTRANSFERASE 31 IU/L (17-59); BILIRUBIN,TOTAL 0.7 mg/dL (0.1-1.4); BILIRUBIN-CONJUGATED 0.3 mg/dL (0.0-0.5); BILIRUBIN-UNCONJUGATED 0.4 mg/dL (0.0-1.1); CALCIUM 9.3 mg/dL (8.5-10.4); CARBON DIOXIDE 17 mEq/l (22-31); CHLORIDE 104 mEq/L (97-110); CREATININE 1.1 mg/dL (0.7-1.3); GLOMERULAR FILTRATION RATE > 60; GLUCOSE 161 mg/dL (70-100); POTASSIUM 5.1 mEq/L (3.5-5.2); SODIUM 133 mEq/L (134-144); TOTAL PROTEIN 7.3 g/dL (6.3-8.2)
[2016-09-27 20:50] LABS: SALICYLATE < 1.0 mg/dL (2.0-20.0)
[2016-09-27 20:55] LABS: TROPONIN I < 0.012 ng/mL (0-0.034)
[2016-09-27 21:30] VITALS: RESP 16
[2016-09-27 21:37] LABS: COLOR PALE YELLOW; LEUKOCYTE ESTERASE,URINE NEGATIVE (NEGATIVE); NITRITE,URINE NEGATIVE (NEGATIVE)
[2016-09-27 21:57] LABS: MUCUS TRACE /lpf (NONE-1+)
[2016-09-27 22:47] VITALS: BP 118/95; PULSE 81; O2SAT 92
== END 2016-09-27 22:47 | disposition home or self-care (01) ==
LOC: EDUNIT#
DX: F41.9 Anxiety disorder, unspecified (principal); F12.90 Cannabis use, unspecified, uncomplicated; I50.9 Heart failure, unspecified; E11.9 Type 2 diabetes mellitus without complications; E86.9 Volume depletion, unspecified
CPT/HCPCS: 80305; G0480

== ENCOUNTER 2016-12-24 09:27 | Inpatient (IN) | payer OTHER ==
--- NOTE | 2016-12-24 09:27 | EDPHY ---
Medical Decision Making ED Course/Re-evaluation: CHIEF COMPLAINT: HISTORY OF PRESENT ILLNESS: must have 4 elements: Location, Quality, Severity , Duration, Timing, Context, Modifying Factors, Associated Signs and Symptoms REVIEW OF SYSTEMS: A 10 point review of systems was performed and is negative with the exception of the elements mentioned in the history of present illness. PHYSICAL EXAM: HR, BP, O2 Sat, RR. Temp noted General Appearance: Alert, well hydrated, appropriate, and non-toxic appearing. Head: Atraumatic without scalp tenderness or obvious injury Eyes: Pupils equal, round, reactive to light and accommodation, EOMI, no trauma , no injection. Ears: Clear bilaterally, no perforation, normal landmarks Nose: Atraumatic, no rhinorrhea, clear. Throat: There is no erythema or exudates, no lesions, normal tonsils, mucus membranes moist. Neck: Supple, 2+ carotid upstroke, nontender, no lymphadenopathy. Respiratory: No retractions, no distress, no wheezes, and no accessory muscle use. Lungs are clear to auscultation bilaterally. Cardiovascular: Regular rate and rhythm, no murmurs, rubs, or gallops. Bilateral carotid, radial, dorsalis pedis, and posterior tibial pulses intact. Good capillary refill all extremities. Gastrointestinal: Abdomen is soft, nontender, non-distended, no masses, no rebound, no guarding, no peritoneal signs. Musculoskeletal: Normal active ROM of all extremities, atraumatic. Neurological: Alert, appropriate, and interactive. The patient has normal DTRs and non-focal cranial nerves, motor, sensory, and cerebellar exam. Skin: No rashes, good turgor, no nodules on palpation. Past medical history: Past surgical history: Family history: Social history: DIAGNOSTICS/PROCEDURES/CRITICAL CARE TIME: DIFFERENTIAL DIAGNOSIS: MEDICAL DECISION MAKING:
--- NOTE | 2016-12-24 09:31 | EDPHY ---
H & P Constitutional: Initial Vital Signs Temperature (C) 36.7 C 12/24/16 09:27 Heart Rate 86 12/24/16 09:27 Respiratory Rate 14 12/24/16 09:27 Blood Pressure 79/52 L 12/24/16 09:27 O2 Sat (%) 91 L 12/24/16 09:27 O2 Delivery Mode Room Air Allergies/Adverse Reactions: Penicillins Allergy (Verified 07/12/16 03:24) Home Medications: Medication Instructions Recorded Acetaminophen [Tylenol ES 500 mg 500 mg PO TID PRN 12/24/16 (*)] Aspirin [Aspirin 81mg (*)] 81 mg PO DAILY 12/24/16 Atorvastatin Calcium [Lipitor 80 80 mg PO DAILY 12/24/16 mg] Carvedilol [Coreg (*)] 25 mg PO BIDMEAL 12/24/16 Chlorthalidone [Chlorthalidone 25 25 mg PO DAILY 12/24/16 mg (*)] Cyclobenzaprine [Flexeril 10 MG 10 mg PO BID PRN 12/24/16 (*)] Diclofenac Sodium 75 mg PO DAILY 12/24/16 Gabapentin [Neurontin 300 MG (*)] 300 mg PO TID 12/24/16 Herbals/Supplements -Info Only 1 ea PO DAILY 12/24/16 Insulin NPH Human [humULIN N 100 0 units SC BIDMEAL 12/24/16 UNITS/ML (*)] Lisinopril [Zestril 5 mg (*)] 5 mg PO DAILY 12/24/16 Magnesium Oxide [Magnesium Oxide 400 mg PO DAILY 12/24/16 400 mg (*)] Omeprazole [Prilosec 20 mg] 20 mg PO DAILY 12/24/16 QUEtiapine FUMARATE [Seroquel 100 50 mg PO BID@,12 12/24/16 mg (*)] QUEtiapine FUMARATE [Seroquel 100 100 mg PO HS 12/24/16 mg (*)] clonazePAM [klonoPIN (*)] 3 mg PO HS PRN 12/24/16 metFORMIN HCL [Glucophage 500 mg 1,000 mg PO BIDMEAL 12/24/16 (*)] Medical Decision Making - Diagnostics Imaging Results: Imaging Impressions Chest X-Ray 12/24/16 09:47 Impression: 1. No active cardiopulmonary disease seen. Head CT 12/24/16 09:48 Impression: 1. No significant intracranial abnormality seen. 2. Stable mild nonspecific paranasal sinus disease. If symptoms worsen, additional imaging may be necessary. Findings discussed with Ghassan Patel MD at 11:17 hour, 12/24/2016. Imaging: Discussed imaging studies w/ call or contact centre coach Radiologist, I viewed and interpreted images myself ED Course/Re-evaluation: CHIEF COMPLAINT: Weakness HISTORY OF PRESENT ILLNESS: The patient is a diabetic 66 y/o male arriving via EMS complaining of global weakness and frequent falls worsening over the last two weeks after doubling his blood pressure medication. He has a history of atrial fibrillation, pacemaker, hypertension, ablation, congestive heart failure , and hypercholesterolemia. Since increasing his blood pressure medication he has been experiencing frequent, uncontrolled falls, dizziness, trouble walking, and a "full and fuzzy" feeling from the neck up. He fell last night but denies hitting his head or other trauma. He originally called EMS believing he was having a stroke but he had a negative stroke assessment by EMS, though he was hypotensive at 90/60. He reports eating and drinking normally. He denies abnormal stools or vomiting, chest pain, or unusual shortness of breath. EMS administered 400 mL of fluids and saw no lasting improvement. In the field he had a blood glucose of 104. REVIEW OF SYSTEMS: A 10 point review of systems was performed and is negative with the exception of the elements mentioned in the history of present illness. PHYSICAL EXAM: HR, BP, O2 Sat, RR. Temp noted General Appearance: Alert, dehydrated, appropriate, and pale and fatigued appearing. Head: Atraumatic without scalp tenderness or obvious injury Eyes: Pupils equal, round, reactive to light and accommodation, EOMI, no trauma , no injection. Ears: Clear bilaterally, no perforation, normal landmarks Nose: Atraumatic, no rhinorrhea, clear. Throat: There is no erythema or exudates, no lesions, normal tonsils, mucus membranes dry. Neck: Supple, nontender, no lymphadenopathy. Respiratory: No retractions, no distress, no wheezes, and no accessory muscle use. Lungs are clear to auscultation bilaterally. Cardiovascular: Regular rate and rhythm, no murmurs, rubs, or gallops. Good capillary refill all extremities. Gastrointestinal: Abdomen is soft, nontender, non-distended, no masses, no rebound, no guarding, no peritoneal signs. Musculoskeletal: Normal active ROM of all extremities, atraumatic. Neurological: Alert, appropriate, and interactive. Non-focal neuro exam with slightly slurred speech. Skin: No rashes, good turgor, no nodules on palpation. 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 Past surgical history: AICD pacemaker. Family history: Non-contributory Social history: Lives in [place], rides a motorcycle, cares for his elderly mother. Prior medical records reviewed including admission 11/26/14 for shortness of breath and ED visit 09/27/16. DIAGNOSTICS/PROCEDURES/CRITICAL CARE TIME: Head CT: negative Chest X-ray: nothing acute EKG: The 12 lead EKG was interpreted by myself. Sinus mechanism rate 96. Multiple PVCs. See hard copy and/or "tracemaster" electronic copy for interpretation. DIFFERENTIAL DIAGNOSIS: The differential diagnosis for the patient's neurologic deficits included but was not limited to peripheral causes, central causes including CVA, TIA, electrolyte abnormalities and dehydration, cardiogenic causes, atypical causes like migraine syndrome. MEDICAL DECISION MAKING: This is a 66 y/o male with multiple conditions who presents with a two weeks history of worsening global weakness after increasing his antihypertensive medications. He is markedly hypotensive on arrival with a BP of 79/52 and appears pale with some noticeable slurring of speech. He is afebrile and has no infectious symptoms. Plan for EKG, labs, head CT, chest X-ray, and likely admission. He does not meet initial sepsis screening criteria. i-Stat shows elevated creatinine of 3.1 indicating renal insufficiency. This could be due to poor kidney profusion secondary to hypotension, prerenal dehydration, or both. 1003- I spoke with hospitalist service. Dr. Velez has cared for patient previously. She says given patient's known alcoholic cardiomyopathy he is sensitive to small changes in his cardiac medications. She believes the change in his blood pressure medication is likely contributing to his hypotension. White blood cell count elevated. Head CT and chest X-ray unremarkable. 1043- I spoke with patient's sister in the ED and she will inform us of differences in status from baseline. Sister confirms patient's speech is slurred. He will be admitted to the hospital. I have discussed workup with the patient and he is comfortable with this plan. - Data Points Laboratory Results: Laboratory Results 12/24/16 09:32 12/24/16 09:32 12/24/16 12/24/16 12/24/16 09:55 09:35 09:32 WBC RBC Hgb POC Hgb Hct POC Hct MCV MCH MCHC RDW Plt Count MPV Neut % (Auto) Lymph % (Auto) [place] % (Auto) Eos % (Auto) Baso % (Auto) Nucleat RBC Rel Count Absolute Neuts (auto) Absolute Lymphs (auto) Absolute Monos (auto) Absolute Eos (auto) Absolute Basos (auto) Absolute Nucleated RBC Immature Gran % Immature Gran # PT 15.0 SEC SEC (12.0-15.0) INR 1.18 H (0.83-1.16) APTT 23.1 SEC SEC (23.0-38.0) VBG Lactic Acid 3.3 mmol/L H mmol/L (0.7-2.1) POC Sodium Sodium 135 mEq/L mEq/L (134-144) POC Potassium Potassium 4.7 mEq/L mEq/L (3.5-5.2) POC Chloride Chloride 94 mEq/L L mEq/L (97-110) Carbon Dioxide 22 mEq/l mEq/l (22-31) Anion Gap 19 mEq/L H mEq/L (8-16) POC BUN BUN 71 mg/dL H mg/dL (7-23) Creatinine 3.1 mg/dL H mg/dL (0.7-1.3) POC Creatinine Estimated GFR 20 Glucose 96 mg/dL mg/dL (70-100) POC Glucose Calcium 9.8 mg/dL mg/dL (8.5-10.4) Total Bilirubin 1.1 mg/dL mg/dL (0.1-1.4) 12/24/16 12/24/16 12/24/16 09:32 09:32 09:29 WBC 13.86 10^3/uL H 10^3/uL (3.80-9.50) RBC 4.67 10^6/uL 10^6/uL (4.40-6.38) Hgb 12.6 g/dL L g/dL (13.7-17.5) POC Hgb 14.6 gm/dL gm/dL (13.7-17.5) Hct 39.7 % L % (40.0-51.0) POC Hct 43 % % (40-51) MCV 85.0 fL fL (81.5-99.8) MCH 27.0 pg L pg (27.9-34.1) MCHC 31.7 g/dL L g/dL (32.4-36.7) RDW 16.0 % H % (11.5-15.2) Plt Count 258 10^3/uL 10^3/uL (150-400) MPV 9.9 fL fL (8.7-11.7) Neut % (Auto) 73.8 % % (39.3-74.2) Lymph % (Auto) 15.1 % % (15.0-45.0) [place] % (Auto) 8.9 % % (4.5-13.0) Eos % (Auto) 1.0 % % (0.6-7.6) Baso % (Auto) 0.6 % % (0.3-1.7) Nucleat RBC Rel Count 0.0 % % (0.0-0.2) Absolute Neuts (auto) 10.24 10^3/uL H 10^3/uL (1.70-6.50) Absolute Lymphs (auto) 2.09 10^3/uL 10^3/uL (1.00-3.00) Absolute Monos (auto) 1.23 10^3/uL H 10^3/uL (0.30-0.80) Absolute Eos (auto) 0.14 10^3/uL 10^3/uL (0.03-0.40) Absolute Basos (auto) 0.08 10^3/uL 10^3/uL (0.02-0.10) Absolute Nucleated RBC 0.00 10^3/uL 10^3/uL (0-0.01) Immature Gran % 0.6 % % (0.0-1.1) Immature Gran # 0.08 10^3/uL 10^3/uL (0.00-0.10) PT REJ INR REJ APTT REJ VBG Lactic Acid POC Sodium 135 mEq/L mEq/L (134-144) Sodium POC Potassium 4.2 mEq/L mEq/L (3.3-5.0) Potassium POC Chloride 96 mEq/L L mEq/L (97-110) Chloride Carbon Dioxide Anion Gap POC BUN 67 mg/dL H mg/dL (7-23) BUN Creatinine POC Creatinine 3.1 mg/dL H mg/dL (0.7-1.3) Estimated GFR Glucose POC Glucose 104 mg/dL H mg/dL (70-100) Calcium Total Bilirubin Medications Given: Sodium Chloride (Ns) 1,000 mls @ 125 mls/hr IV CONT MIKAELA Stop: 06/22/17 12:44 Last Admin: 12/24/16 13:21 Dose: 1,000 mls Discontinued Medications Sodium Chloride (Ns) 1,000 mls @ 0 mls/hr IV ONCE ONE; Wide Open PRN Reason: Protocol Stop: 12/24/16 09:42 Last Admin: 12/24/16 09:42 Dose: 1,000 mls Sodium Chloride (Ns) 1,000 mls @ 0 mls/hr IV ONCE ONE PRN Reason: Wide Open Stop: 12/24/16 11:52 Last Admin: 12/24/16 12:07 Dose: 1,000 mls Point of Care Test Results: 12/24/16 09:29 POC Sodium 135 POC Potassium 4.2 POC Chloride 96 L POC BUN 67 H POC Creatinine 3.1 H POC Glucose 104 H Departure - Departure Disposition: [facility] Inpatient Acute Clinical Impression: Renal insufficiency, Dehydration Hypotension Qualifiers: Hypotension type: hypotension due to drug Qualified Code(s): I95.2 - Hypotension due to drugs Adverse effects of medication Qualifiers: Encounter type: initial encounter Qualified Code(s): T88.7XXA - Unspecified adverse effect of drug or medicament, initial encounter Condition: Fair Report Scribed for: Ghassan Patel Report Scribed by: Marimar Rollins Date of Report: 12/24/16 Time of Report: 14:58
--- NOTE | 2016-12-24 09:37 | CPEKG ---
Heart Rate: 96 RR Interval: 625 P-R Interval: 176 QRSD Interval: 94 QT Interval: 360 QTC Interval: 455 P [place]: 40 QRS [place]: -15 T Wave [place]: 2 EKG Severity - ABNORMAL ECG - EKG Impression: SINUS RHYTHM EKG Impression: MULTIPLE VENTRICULAR PREMATURE COMPLEXES EKG Impression: BORDERLINE LEFT AXIS DEVIATION EKG Impression: BORDERLINE T WAVE ABNORMALITIES Electronically Signed By: Ghassan Patel 24-Dec-2016 14:33:03
[2016-12-24] MEDS ORDERED: NS 1,000 ML IV ONE ×2 (09:41→11:51)
[2016-12-24 09:54] LABS: % IMMATURE GRANULYOCYTES 0.6 % (0.0-1.1); ABSOLUTE IMMATURE GRANULOCYTES 0.08 10^3/uL (0.00-0.10); ADD DIFF? NO; ADD MORPH? NO; ADD SCAN? NO; ATYPICAL LYMPHOCYTE FLAG 0 (0-99); FRAGMENT RBC FLAG 0 (0-99); HEMATOCRIT 39.7 % (40.0-51.0); HEMOGLOBIN 12.6 g/dL (13.7-17.5); LEFT SHIFT FLG 10 (0-99); LIPEMIA HEMOLYSIS FLAG 80 (0-99); MEAN CELL HEMOGLOBIN CONCENTR. 31.7 g/dL (32.4-36.7); MEAN PLATELET VOLUME 9.9 fL (8.7-11.7); PLATELET CLUMPS FLAG 10 (0-99); PLATELET COUNT 258 10^3/uL (150-400); RED BLOOD CELL COUNT 4.67 10^6/uL (4.40-6.38)
[2016-12-24 10:22] LABS: INR 1.18 (0.83-1.16)
[2016-12-24 10:23] LABS: APTT 23.1 SEC (23.0-38.0)
[2016-12-24 10:51] LABS: LACGHOST ORDER
[2016-12-24 11:06] LABS: ANION GAP 19 mEq/L (8-16); BILIRUBIN,TOTAL 1.1 mg/dL (0.1-1.4); CALCIUM 9.8 mg/dL (8.5-10.4); CARBON DIOXIDE 22 mEq/l (22-31); CHLORIDE 94 mEq/L (97-110); CREATININE 3.1 mg/dL (0.7-1.3); GLOMERULAR FILTRATION RATE 20; GLUCOSE 96 mg/dL (70-100); POTASSIUM 4.7 mEq/L (3.5-5.2); SODIUM 135 mEq/L (134-144)
[2016-12-24] MEDS ORDERED: ACETAMINOPHEN 325 MG TAB PO PRN (12:32)
[2016-12-24] MEDS ORDERED: ONDANSETRON DISINTEGRATING 4 MG TAB PO PRN (12:32)
[2016-12-24] MEDS ORDERED: ONDANSETRON 4 MG/2 ML VIAL IVP PRN (12:32)
--- NOTE | 2016-12-24 12:41 | PDGENHP ---
History and Physical - Chief Complaint dizzy - History of Present Illness 66 yo male with h/o DM, hypertension and diastolic HF presents to ED with dizziness. He reports having had his Lisinopril dose doubled and Chlorthalidone added to his anti-hypertensive regimen last week. His symptoms started shortly after this and include lightheadedness and dysequilibrium. He denies fevers or chills. He denies CP or SOB. He denies abdominal symptoms such as N/V/D. No dysuria, frequency or urgency. He specifically denies hematemesis, coffee ground emesis, BRBPR or melanotic stools. His sister however later reported that he vomited some black substance last week. In the ED, he was found to be hypotensive and in renal failure. CT head was negative. He was given a 1L NS bolus and was admitted to the PCU for further management. History Information - Allergies/Home Medication List Allergies/Adverse Reactions: Penicillins Allergy (Verified 07/12/16 03:24) Home Medications: Acetaminophen [Tylenol ES 500 mg (*)] 500 mg PO TID PRN 12/24/16 [Last Taken Unknown] Aspirin [Aspirin 81mg (*)] 81 mg PO DAILY 12/24/16 [Last Taken Unknown] Atorvastatin Calcium [Lipitor 80 mg] 80 mg PO DAILY 12/24/16 [Last Taken Unknown ] Carvedilol [Coreg (*)] 25 mg PO BIDMEAL 12/24/16 [Last Taken Unknown] Chlorthalidone [Chlorthalidone 25 mg (*)] 25 mg PO DAILY 12/24/16 [Last Taken Unknown] Cyclobenzaprine [Flexeril 10 MG (*)] 10 mg PO BID PRN 12/24/16 [Last Taken Unknown] Diclofenac Sodium 75 mg PO DAILY 12/24/16 [Last Taken Unknown] Gabapentin [Neurontin 300 MG (*)] 300 mg PO TID 12/24/16 [Last Taken Unknown] Herbals/Supplements -Info Only 1 ea PO DAILY 12/24/16 [Last Taken Unknown] Insulin NPH Human [humULIN N 100 UNITS/ML (*)] 0 units SC BIDMEAL 12/24/16 [ Last Taken Unknown] Lisinopril [Zestril 5 mg (*)] 5 mg PO DAILY 12/24/16 [Last Taken Unknown] Magnesium Oxide [Magnesium Oxide 400 mg (*)] 400 mg PO DAILY 12/24/16 [Last Taken Unknown] Omeprazole [Prilosec 20 mg] 20 mg PO DAILY 12/24/16 [Last Taken Unknown] QUEtiapine FUMARATE [Seroquel 100 mg (*)] 50 mg PO BID@08,12 12/24/16 [Last Taken Unknown] QUEtiapine FUMARATE [Seroquel 100 mg (*)] 100 mg PO HS 12/24/16 [Last Taken Unknown] clonazePAM [klonoPIN (*)] 3 mg PO HS PRN 12/24/16 [Last Taken Unknown] metFORMIN HCL [Glucophage 500 mg (*)] 1,000 mg PO BIDMEAL 12/24/16 [Last Taken Unknown] I have personally reviewed and updated: family history, medical history, social history, surgical history - Past Medical History atrial fibrillation, CHF, diabetes type 2, hypertension, hyperlipidemia Additional medical history: 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 A fib s/p 2 ablations with pacemaker/AICD. H/O alcohol abuse - in remission x10 yrs. Marijuana abuse - Surgical History Additional surgical history: AICD / pacemaker - Family History Positive for: non-pertinent - Social History Smoking Status: Former smoker Additional social history: Quit alcohol and tobacco 10 yrs ago at onset of HF diagnosis. Lives in [facility] [place] Uses marijuana and benzos. Review of Systems Review of Systems: ROS: 10pt was reviewed & negative except for what was stated in HPI & below Physical Exam Physical Exam: Temp Pulse Resp BP Pulse Ox 36.6 C 84 16 70/50 L 98 12/24/16 11:30 12/24/16 11:30 12/24/16 11:30 12/24/16 11:30 12/24/16 11:30 O2 (L/minute) 4 Constitutional: no apparent distress Eyes: PERRL Ears, Nose, Mouth, Throat: moist mucous membranes Cardiovascular: regular rate and rhythym, no murmur, rub, or gallop Respiratory: no respiratory distress, clear to auscultation Gastrointestinal: normoactive bowel sounds, soft, non-tender abdomen Skin: warm Musculoskeletal: full muscle strength Neurologic: AAOx3 Psychiatric: interacting appropriately Lab Data & Imaging Review 12/24/16 15:19 12/24/16 09:32 WBC 13.86 10^3/uL (3.80-9.50) H 12/24/16 09:32 RBC 4.67 10^6/uL (4.40-6.38) 12/24/16 09:32 Hgb 12.6 g/dL (13.7-17.5) L 12/24/16 09:32 POC Hgb 14.6 gm/dL (13.7-17.5) 12/24/16 09:29 Hct 39.7 % (40.0-51.0) L 12/24/16 09:32 POC Hct 43 % (40-51) 12/24/16 09:29 MCV 85.0 fL (81.5-99.8) 12/24/16 09:32 MCH 27.0 pg (27.9-34.1) L 12/24/16 09:32 MCHC 31.7 g/dL (32.4-36.7) L 12/24/16 09:32 RDW 16.0 % (11.5-15.2) H 12/24/16 09:32 Plt Count 258 10^3/uL (150-400) 12/24/16 09:32 MPV 9.9 fL (8.7-11.7) 12/24/16 09:32 Neut % (Auto) 73.8 % (39.3-74.2) 12/24/16 09:32 Lymph % (Auto) 15.1 % (15.0-45.0) 12/24/16 09:32 [place] % (Auto) 8.9 % (4.5-13.0) 12/24/16 09:32 Eos % (Auto) 1.0 % (0.6-7.6) 12/24/16 09:32 Baso % (Auto) 0.6 % (0.3-1.7) 12/24/16 09:32 Nucleat RBC Rel Count 0.0 % (0.0-0.2) 12/24/16 09:32 Absolute Neuts (auto) 10.24 10^3/uL (1.70-6.50) H 12/24/16 09:32 Absolute Lymphs (auto) 2.09 10^3/uL (1.00-3.00) 12/24/16 09:32 Absolute Monos (auto) 1.23 10^3/uL (0.30-0.80) H 12/24/16 09:32 Absolute Eos (auto) 0.14 10^3/uL (0.03-0.40) 12/24/16 09:32 Absolute Basos (auto) 0.08 10^3/uL (0.02-0.10) 12/24/16 09:32 Absolute Nucleated RBC 0.00 10^3/uL (0-0.01) 12/24/16 09:32 Immature Gran % 0.6 % (0.0-1.1) 12/24/16 09:32 Immature Gran # 0.08 10^3/uL (0.00-0.10) 12/24/16 09:32 PT 15.0 SEC (12.0-15.0) 12/24/16 09:55 INR 1.18 (0.83-1.16) H 12/24/16 09:55 APTT 23.1 SEC (23.0-38.0) 12/24/16 09:55 VBG Lactic Acid 3.3 mmol/L (0.7-2.1) H 12/24/16 09:35 POC Sodium 135 mEq/L (134-144) 12/24/16 09:29 Sodium 135 mEq/L (134-144) 12/24/16 09:32 POC Potassium 4.2 mEq/L (3.3-5.0) 12/24/16 09:29 Potassium 4.7 mEq/L (3.5-5.2) 12/24/16 09:32 POC Chloride 96 mEq/L (97-110) L 12/24/16 09:29 Chloride 94 mEq/L (97-110) L 12/24/16 09:32 Carbon Dioxide 22 mEq/l (22-31) 12/24/16 09:32 Anion Gap 19 mEq/L (8-16) H 12/24/16 09:32 POC BUN 67 mg/dL (7-23) H 12/24/16 09:29 BUN 71 mg/dL (7-23) H 12/24/16 09:32 Creatinine 3.1 mg/dL (0.7-1.3) H 12/24/16 09:32 POC Creatinine 3.1 mg/dL (0.7-1.3) H 12/24/16 09:29 Estimated GFR 20 12/24/16 09:32 Glucose 96 mg/dL (70-100) 12/24/16 09:32 POC Glucose 104 mg/dL (70-100) H 12/24/16 09:29 Calcium 9.8 mg/dL (8.5-10.4) 12/24/16 09:32 Total Bilirubin 1.1 mg/dL (0.1-1.4) 12/24/16 09:32 Visualized and Interpreted Chest x-ray results: Yes Chest X-Ray results: no infiltrate Visualized and Interpreted EKG results: Yes EKG Interpretation: Positive for: normal sinsus rhythm Assessment & Plan Assessment: Hypotension with falls - He did not meet SIRS criteria for sepsis and has no infectious source or symptoms with a neg UA, neg CXR. Lactate likely elevated secondary to hypoperfusion from hypotension, rpt is normal after IVF's. SBP 70 on arrival to PCU. He recently increased his Lisinopril and added Chlorthalidone a week ago, which is when his dizziness started. Thus, I suspect this may be medication induced. Also consider hypovolemia from poor oral intake. In addition, pt has h/o marijuana use and has used edibles. Family later noted he vomited black last week, though presenting hgb >12, making GIB unlikely source of hypotension. -NS bolus and cont maintenance fluids -hold anti-hypertensives -stat echo to r/o pericardial effusion and assess LV function -trend trop and monitor on telemetry -trend H&H and hemoccult stool given possible coffee ground emesis history -blood cultures sent, atbx as below -discussed possible need for central line and pressors if BP not responding to fluid boluses PM UPDATE - pt remained hypotensive with sbp as low as 67 after 3 L NS boluses. -transferred to ICU -place central line -start pressors as needed to maintain MAP >65 -send PCT, random cortisol level -will cover with ceftriaxone for now while awaiting Cx data, no risk factors for MDR orgs RICHARD - Baseline Cr 0.9. Cr on arrival 3.1 Suspect pre-renal with elevated BUN, likely hastened by PRINCESS and NSAID use. No urgent dialysis needs. -hold princess, nsaid's, avoid nephrotoxic agents -check urine Na and Cr to calculate FeNa -check UA, renal u/s -send Mg, Phos -Cont NS, recheck in am -If Cr not improving with volume resuscitation, may need nephrology consult Urinary retention - 1L removed with straight cath after he was bladder scanned due to no uop after multiple fluid boluses -renal u/s as above -q6h bladder scans and place kerr on 3rd episode of retention Chronic diastolic heart failure - has h/o alcoholic cardiomyopathy. Recent echo 08/2016 reviewed. EF was 50-55% with mild diastolic dysfunction. Appears dry on arrival. Discussed stat echo with Dr. Navarrete, LV function unchanged, no pericardial effusion. -Administer further fluids with caution, though LV likely ok to tolerate boluses per cards DM - pt has unusual insulin regimen taking 0-40 units of NPH in the AM and 60 qpm depending on his BG. BG on arrival is ~100 -will give lower dose lantus here given poor oral intake -SSI H/O A fib - in NSR now, s/p ablation. He is not anti-coagulated and will defer that for now given he is in sinus since ablation H/O polysubstance abuse - sober from etoh for 10 yrs, but admits to ongoing MJ use and last drug screen 09/2016 was positive for BZD and MJ. -drug screen pending H/O hypertension - currently hypotensive, anti-hypertensive will obviously be held. Full code DVT PPLX - MIKAELA held until it's more clear there is no GI bleeding source of hypotension. Resume MIKAELA tomorrow if H&H stable. Dispo - admit to inpt, suspect will require >48 hrs hospitalization for ongoing management of his RICHARD and hypotension. Will need PT/OT evals. A total of 75 minutes was spent providing direct face to face care and follow up critical care when I returned to the bedside later in the afternoon.
[2016-12-24] MEDS: NS 1,000 ML IV SCH (13:21)
--- NOTE | 2016-12-24 13:27 | CPEKG ---
Heart Rate: 90 RR Interval: 667 P-R Interval: 204 QRSD Interval: 98 QT Interval: 364 QTC Interval: 446 P Mio: 46 QRS Mio: -6 T Wave Mio: 25 EKG Severity - BORDERLINE ECG - EKG Impression: SINUS RHYTHM EKG Impression: LOW VOLTAGE IN FRONTAL LEADS EKG Impression: BORDERLINE T WAVE ABNORMALITIES Electronically Signed By: Mo Schilling 26-Dec-2016 17:38:36
[2016-12-24] MEDS ORDERED: HEPARIN 5,000 UNIT/0.5 ML SYR SC SCH (14:00)
[2016-12-24 15:28] LABS: HEMATOCRIT 29.2 % (40.0-51.0); HEMOGLOBIN 9.4 g/dL (13.7-17.5)
[2016-12-24 15:47] LABS: MAGNESIUM 1.9 mg/dL (1.6-2.3)
--- NOTE | 2016-12-24 15:47 | ASMTCMCOM ---
CM Note CM Note Notes: Reviewed chart re: d/c poc, pt's progress. Pt admitted w/ hypotension, falls, RICHARD, chronic DCHF, h/o of alcoholic cardiomyopathy and polysubstance abuse. Pt is single and lives alone. No PT/OT evals at this time. Discharge needs remain TBD at this time. CM will cont to follow. Date Signed: 12/24/2016 03:46 PM Electronically Signed By:Louisa Sin RN
[2016-12-24] MEDS ORDERED: ALTEPLASE 2 MG VIAL IVP PRN (15:58)
[2016-12-24 16:00] LABS: TROPONIN I < 0.012 ng/mL (0.000-0.034)
[2016-12-24] MEDS ORDERED: cefTRIAXone 2 GM in D5W 50 ML IV SCH (16:30)
[2016-12-24] MEDS ORDERED: NOREPINEPHRINE/NS 500 ML IV SCH (16:30)
[2016-12-24 16:56] LABS: COLOR YELLOW; LEUKOCYTE ESTERASE,URINE NEGATIVE (NEGATIVE); NITRITE,URINE NEGATIVE (NEGATIVE)
[2016-12-24 16:57] LABS: ALBUMIN 4.3 g/dL (3.5-5.0); BILIRUBIN,TOTAL 1.2 mg/dL (0.1-1.4); BILIRUBIN-CONJUGATED 0.4 mg/dL (0.0-0.5); BILIRUBIN-UNCONJUGATED 0.8 mg/dL (0.0-1.1)
[2016-12-24] MEDS ORDERED: clonazePAM 1 MG TAB PO PRN (16:58)
[2016-12-24] MEDS ORDERED: D50W 25 GM/50 ML SYR IVP PRN (17:10)
[2016-12-24 17:38] LABS: PHENCYCLIDINE URINE BCH < 6 ng/ml (NEGATIVE); PHENCYCLIDINE URINE BCH NEGATIVE (NEGATIVE); TETRAHYDROCANNABINOL URINE 23 ng/mL (NEGATIVE); TETRAHYDROCANNABINOL URINE NEGATIVE (NEGATIVE)
[2016-12-24 17:43] LABS: PROCALCITONIN 0.41 ng/mL (0.02-0.10)
[2016-12-24] MEDS: INSULIN LISPRO 100 UNIT/ML SC SCH (18:37)
[2016-12-24 19:50] LABS: HEMATOCRIT 30.6 % (40.0-51.0); HEMOGLOBIN 9.7 g/dL (13.7-17.5)
[2016-12-24] MEDS ORDERED: INSULIN GLARGINE 100 UNITS/ML SYRINGE SC SCH (21:00)
[2016-12-24] MEDS: QUEtiapine FUMARATE 50 MG TAB PO SCH (21:11)
[2016-12-25] MEDS: NS 1,000 ML IV SCH (03:40)
[2016-12-25 06:53] LABS: % IMMATURE GRANULYOCYTES 0.6 % (0.0-1.1); ABSOLUTE IMMATURE GRANULOCYTES 0.03 10^3/uL (0.00-0.10); ADD DIFF? NO; ADD MORPH? NO; ADD SCAN? NO; ATYPICAL LYMPHOCYTE FLAG 0 (0-99); FRAGMENT RBC FLAG 0 (0-99); HEMATOCRIT 30.9 % (40.0-51.0); HEMOGLOBIN 9.7 g/dL (13.7-17.5); LEFT SHIFT FLG 0 (0-99); LIPEMIA HEMOLYSIS FLAG 80 (0-99); MEAN CELL HEMOGLOBIN 27.2 pg (27.9-34.1); MEAN CELL HEMOGLOBIN CONCENTR. 31.4 g/dL (32.4-36.7); MEAN CELL VOLUME 86.6 fL (81.5-99.8); MEAN PLATELET VOLUME 9.9 fL (8.7-11.7); PLATELET CLUMPS FLAG 20 (0-99); PLATELET COUNT 170 10^3/uL (150-400); RED BLOOD CELL COUNT 3.57 10^6/uL (4.40-6.38); RED CELL DISTRIBUTION WIDTH 15.9 % (11.5-15.2)
[2016-12-25 06:58] LABS: ANION GAP 10 mEq/L (8-16); CALCIUM 8.2 mg/dL (8.5-10.4); CARBON DIOXIDE 21 mEq/l (22-31); CHLORIDE 108 mEq/L (97-110); GLOMERULAR FILTRATION RATE > 60; GLUCOSE 117 mg/dL (70-100); POTASSIUM 4.8 mEq/L (3.5-5.2); SODIUM 139 mEq/L (134-144)
[2016-12-25] MEDS: INSULIN LISPRO 100 UNIT/ML SC SCH ×3 (08:22→19:26)
--- NOTE | 2016-12-25 08:44 | HOSPPROG ---
Hospitalist Progress Note Assessment/Plan: Hypotension with falls - Likely due to hypovolemia and recent increase in BP meds. Improved after IVF resuscitation. Echo with EF 50-55%, no change from prior and no pericardial effusion. No infectious symptoms. Pt had bolus refractory hypotension yesterday, central line was placed and he was covered with a dose of Ceftriaxone, but note lactate normalized with fluids alone. Continues to have no infection source, PCT low risk for sepsis. BCx's pending. -dc atbx and observe -cont maintenance fluids for now, will d/c later today if remains stable -cont to hold anti-hypertensives, resume at lower doses as indicated -h&h dropped likely due to dilution, since stable, no signs of GI bleeding RICHARD - Suspect pre-renal with elevated BUN, likely hastened by PRINCESS and NSAID use. Cr normalized with IVF's (3.1 --> 1.0). UA neg, renal u/s without hydro -holding princess, nsaid's Urinary retention - Resolved. 1L removed with straight cath after he was bladder scanned due to no uop after multiple fluid boluses, now voiding on his own. Chronic diastolic heart failure - has h/o alcoholic cardiomyopathy. Recent echo 08/2016 reviewed. EF was 50-55% with mild diastolic dysfunction. Discussed stat echo yest with Dr. Navarrete, LV function unchanged, no pericardial effusion. Appeared dry on arrival, now euvolemic. No e/o acute HF. -monitor I&O's, daily weights Type 2 DM - pt has unusual insulin regimen taking 0-40 units of NPH in the AM and 60 qpm depending on his BG. BG on arrival is ~100. I held insulin last night due to bg 70's and little oral intake. BG this am 100. Cont SSI for now , add back basal insulin when eating better. H/O A fib - in NSR, s/p ablation. He is not anti-coagulated and will defer that for now given he seems to have maintained sinus since ablation. H/O polysubstance abuse - sober from etoh for 10 yrs, but admits to ongoing MJ use and last drug screen 09/2016 was positive for BZD and MJ. Only bzd's on drug screen here. -I've decreased his klonopin dose from 3 mg hs to 1 mg hs for his safety H/O hypertension - anti-hypertensives continue to be held due to profound hypotension on arrival. Full code DVT PPLX - Lovenox Dispo - Cont inpt, PT/OT evals planned. Subjective: Pt feels much better. Now voiding on his own. No CP, SOB, dizzines , N/V/D, abdominal pain or urinary symptoms. No fevers. Objective: Vital Signs Temp Pulse Resp BP Pulse Ox 36.7 C 74 19 108/68 93 12/25/16 08:00 12/25/16 08:00 12/25/16 08:00 12/25/16 08:00 12/25/16 08:00 Laboratory Results 12/25/16 06:30 12/25/16 06:30 12/24/16 12/25/16 12/26/16 05:59 05:59 05:59 Intake Total 6456 Output Total 3675 1200 Balance 2781 -1200 PT 15.0 SEC (12.0-15.0) 12/24/16 09:55 INR 1.18 (0.83-1.16) H 12/24/16 09:55 - Physical Exam Constitutional: no apparent distress Eyes: PERRL Ears, Nose, Mouth, Throat: moist mucous membranes Cardiovascular: regular rate and rhythym, no murmur, rub, or gallop Respiratory: no respiratory distress, clear to auscultation Gastrointestinal: normoactive bowel sounds, soft, non-tender abdomen Skin: warm Musculoskeletal: full muscle strength Neurologic: AAOx3 Psychiatric: interacting appropriately ICD10 Worksheet Patient Problems: Problems Problem Status Onset Adverse effects of medication Acute Dehydration Acute Hypotension Acute Renal insufficiency Acute Cardiomyopathy Acute Supraventricular tachycardia Acute
[2016-12-25] MEDS ORDERED: NON-FORMULARY NEW DRUG (Atorvastatin Calcium [Lipitor 80 Mg] 80 MG) PO SCH (09:00)
[2016-12-25] MEDS ORDERED: NON-FORMULARY NEW DRUG (Omeprazole [Prilosec 20 Mg] 20 MG) PO SCH (09:00)
[2016-12-25] MEDS: ASPIRIN 81 MG CHEWABLE TAB PO SCH (09:41)
[2016-12-25] MEDS: ATORVASTATIN CALCIUM 40 MG TAB PO SCH (09:41)
[2016-12-25] MEDS: ENOXAPARIN 40 MG/0.4 ML SYR SC SCH (09:41)
[2016-12-25] MEDS: QUEtiapine FUMARATE 50 MG TAB PO SCH ×4 (09:41→21:38)
[2016-12-25] MEDS: PANTOPRAZOLE SODIUM 40 MG TAB PO SCH (09:41)
[2016-12-25] MEDS: GABAPENTIN 300 MG CAP PO SCH ×3 (09:41→21:38)
[2016-12-26 05:47] VITALS: RESP 18
[2016-12-26 05:59] LABS: % IMMATURE GRANULYOCYTES 0.4 % (0.0-1.1); ABSOLUTE IMMATURE GRANULOCYTES 0.02 10^3/uL (0.00-0.10); ADD DIFF? NO; ADD MORPH? NO; ADD SCAN? NO; ATYPICAL LYMPHOCYTE FLAG 10 (0-99); FRAGMENT RBC FLAG 0 (0-99); HEMOGLOBIN 10.6 g/dL (13.7-17.5); LEFT SHIFT FLG 0 (0-99); LIPEMIA HEMOLYSIS FLAG 80 (0-99); MEAN CELL HEMOGLOBIN 27.1 pg (27.9-34.1); MEAN CELL HEMOGLOBIN CONCENTR. 32.1 g/dL (32.4-36.7); MEAN CELL VOLUME 84.4 fL (81.5-99.8); MEAN PLATELET VOLUME 9.8 fL (8.7-11.7); PLATELET CLUMPS FLAG 10 (0-99); PLATELET COUNT 203 10^3/uL (150-400); RED BLOOD CELL COUNT 3.91 10^6/uL (4.40-6.38); RED CELL DISTRIBUTION WIDTH 15.6 % (11.5-15.2)
[2016-12-26 06:25] LABS: ANION GAP 10 mEq/L (8-16); CALCIUM 9.2 mg/dL (8.5-10.4); CARBON DIOXIDE 24 mEq/l (22-31); CHLORIDE 102 mEq/L (97-110); CREATININE 0.9 mg/dL (0.7-1.3); GLOMERULAR FILTRATION RATE > 60; GLUCOSE 160 mg/dL (70-100); POTASSIUM 4.3 mEq/L (3.5-5.2); SODIUM 136 mEq/L (134-144)
[2016-12-26] MEDS: INSULIN LISPRO 100 UNIT/ML SC SCH (08:49)
[2016-12-26] MEDS: GABAPENTIN 300 MG CAP PO SCH (08:50)
[2016-12-26] MEDS: ENOXAPARIN 40 MG/0.4 ML SYR SC SCH (08:50)
[2016-12-26] MEDS: ATORVASTATIN CALCIUM 40 MG TAB PO SCH (08:50)
[2016-12-26] MEDS: ASPIRIN 81 MG CHEWABLE TAB PO SCH (08:50)
[2016-12-26] MEDS: PANTOPRAZOLE SODIUM 40 MG TAB PO SCH (08:51)
[2016-12-26 08:52] VITALS: TEMP 97.7
--- NOTE | 2016-12-26 10:54 | PDDCSUM ---
Discharge Summary Discharge Summary: Dates of service 12/24-12/26/16 Consultations: none Procedures performed: PICC line, echo, abd us Hospital course by problem: Hypotension with falls - Likely due to hypovolemia and recent increase in BP meds. Improved after IVF resuscitation. Echo performed (no read in computer but per cardiology no change, no effusion) No infectious symptoms. no e/o infection and continued to improve off of abx. Will continue to hold antihypertensives until f/u with PCP, suspect if he needs any bp meds he needs much less than he was one. RICHARD - Suspect pre-renal with elevated BUN, likely hastened by PRINCESS and NSAID use. Cr normalized with IVF's UA neg, renal u/s without hydro Urinary retention - Resolved. Chronic diastolic heart failure - has h/o alcoholic cardiomyopathy. Recent echo 08/2016 EF was 50-55% with mild diastolic dysfunction. stat echo read by Dr. Navarrete, LV function unchanged, no pericardial effusion--can't find report in computer... no e/o decompensation Type 2 DM - pt has unusual insulin regimen taking 0-40 units of NPH in the AM and 60 qpm depending on his BG. BG on arrival is ~100. Initially with some low BG but normalized now that taking PO well, continue home regimen H/O A fib - in NSR, s/p ablation. He is not anti-coagulated and will defer that for now given he seems to have maintained sinus since ablation. H/O polysubstance abuse - sober from etoh for 10 yrs, but admits to ongoing MJ use and last drug screen 09/2016 was positive for BZD and MJ. Only bzd's on drug screen here. -I've decreased his klonopin dose from 3 mg hs to 1 mg hs for his safety H/O hypertension - anti-hypertensives continue to be held with ongoing hypotension DC home, f/u with PCP, continue to hold BP meds for now >35 min for dc more than half in coordination of care
[2016-12-26] MEDS ORDERED: FLU VACC QS 2017-18 (3YR+)/PF 0.5 ML SYR (FLUARIX QUAD) IM ONE (11:54)
[2016-12-26] MEDS: QUEtiapine FUMARATE 50 MG TAB PO SCH (12:00)
[2016-12-26 12:02] VITALS: BP 135/82; PULSE 88; O2SAT 98
--- NOTE | 2016-12-26 16:09 | ASDISCHSUM ---
Discharge Information Plan Status:Home with No Needs Medically Cleared to Leave:12/26/2016 Discharge Date:12/26/2016 12:25 PM CM D/C Disposition:Home, Routine, Self-Care ADT D/C Disposition:Home, Routine, Self-Care Projected Discharge Date:12/26/2016 12:00 AM Transportation at D/C:Friend Discharge Delay Reason: Follow-Up Date:12/26/2016 12:00 AM Discharge Slot: Final Diagnosis:Hypotension with falls Placement Information Patient Contact Information Contact Name:ANDREINA Relationship:Friend Address: Work Phone: City: [facility] Phone: [facility] Code: Email: Financial Information Financial Class: Primary Plan Desc:MEDICARE INPATIENT Primary Plan Number:[id number] Secondary Plan Desc:[facility] PROG Secondary Plan Number:[id number] Assessment Information [facility] CM Progress Note CM Note CM Note Notes: Reviewed chart re: d/c poc, pt's progress. Pt admitted w/ hypotension, falls, RICHARD, chronic DCHF, h/o of alcoholic cardiomyopathy and polysubstance abuse. Pt is single and lives alone. No PT/OT evals at this time. Discharge needs remain TBD at this time. CM will cont to follow. Date Signed: 12/24/2016 03:46 PM Electronically Signed By:Louisa Sin RN [facility] CM Progress Note CM Note CM Note Notes: Patient has been discharged, no needs noted. Date Signed: 12/26/2016 04:08 PM Electronically Signed By:Luba Long LCSW Intervention Information Intervention Type:*IM-Signed Date of Service:12/26/2016 12:35 PM Patient Type:Inpatient Staff Member:Michelle Chiang Hours: Discipline: Severity: Comment:
--- NOTE | 2016-12-28 10:34 | ECHO ---
[email or web address] [address] Main: [phone] Fax: Transthoracic Echocardiogram Name: ROSS TARANGO MR#: [id number] Study Date: 12/24/2016 Study Time: 02:28 PM Date of : 1950 Age: 66 year(s) Height: 182.9 cm (72 in.) Weight: 90.72 kg (200 lb.) BSA: 2.13 m2 Gender: Male Examination: Echo Indication: Hypotension/history of heart failure, pacer Image Quality: Contrast: Requested by: Grace Velez BP: 85 mmHg/63 mmHg Heart Rate: Rhythm: Indication: Hypotension/history of heart failure, pacer Procedure Staff Claims Supervisor: Kiah Ceballos Physician: Jose Luis Elizabeth Requesting Provider: Conclusions: The ejection fraction is estimated to be 50-55 %. No hemodynamically significant valvular abnormalities Measurements: Chambers Valvular Assessment AV/MV Valvular Assessment TV/PV Normal Normal Normal Name Value Range Name Value Range Name Value Range IVSd (2D): 0.6 cm (0.6 cm-1.1 AV Vmax: 1.07 m/s (1 m/s-1.7 TR Vmax: 2.51 mm/s ( - ) cm) m/s) TR PGmax: 25 mmHg ( - ) LVDd (2D): 5.4 cm (4.2 cm-5.9 AV maxP mmHg ( - ) syst. PAP: 35 mmHg ( - ) cm) MV E Vmax: 0.73 m/s ( - ) LVDs (2D): 3.5 cm (2.1 cm-4 MV A Vmax: 0.96 m/s ( - ) cm) MV E/A: 0.76 ( - ) LVPWd (2D): 0.9 cm (0.6 cm-1 cm) EF Range: 50-55 % Continued Measurements: Chambers Valvular Assessment AV/MV Valvular Assessment TV/PV Name Value Name Value Name Value LADs: 4.1 cm MV E/E' Septal: 11.80 CVP (est.): 10 mmHg LADs Lon.2 cm MV E/E' Lateral: 11.60 LA Area: 16.8 cm2 LA Volume: 41 ml LA Volume Index: 19.2 ml/m2 Findings: Left Ventricle: Patient: ROSS TARANGO Study Date: 12/24/2016 Page 1 of 2 02:28 PM Normal size left ventricle. The ejection fraction is estimated to be 50-55 %. Right Ventricle: Normal size right ventricle. There is no pacemaker lead noted in the right ventricle. Left Atrium: The left atrium is normal in size. Right Atrium: The right atrium is normal in size. Mitral Valve: Mild mitral annular calcification. Trivial mitral valve regurgitation. Aortic Valve: The aortic valve is tri-leaflet and functions normally. Tricuspid Valve: The tricuspid valve appears normal. Mild tricuspid regurgitation is present. The pulmonary artery pressure is normal. Pulmonic Valve: The pulmonic valve is normal in appearance. Trivial pulmonic valve regurgitation. Pericardium: There is pericardial fat. (No Signature Object) Patient: ROSS TARANGO Study Date: 12/24/2016 Page 2 of 2 02:28 PM [id number]
== END 2016-12-26 12:25 | disposition home or self-care (01) | DRG 312 ==
LOC: EDUNIT# → F2W 11:21 → F2N 16:19
PROVIDERS: ADMIT Hospitalist; ATTEND Hospitalist
PROC: 02HV33Z Insertion of Infusion Device into Superior Vena Cava, Percutaneous Approach (ICD-10-PCS; principal; 2016-12-24)
DX: I95.2 Hypotension due to drugs (principal); T46.5X5A Adverse effect of other antihypertensive drugs, initial encounter; E86.1 Hypovolemia; N17.9 Acute kidney failure, unspecified; I11.0 Hypertensive heart disease with heart failure; I50.32 Chronic diastolic (congestive) heart failure; E11.9 Type 2 diabetes mellitus without complications; Z79.4 Long term (current) use of insulin; I48.91 Unspecified atrial fibrillation; R29.6 Repeated falls; Z87.891 Personal history of nicotine dependence; Z95.810 Presence of automatic (implantable) cardiac defibrillator; F12.90 Cannabis use, unspecified, uncomplicated
CPT/HCPCS: 80307; 82947-QW; 97116-GP; 97161-GP; 97165-GO; C1751; G0008; G0480; G8978-GP-CI; G8979-GP-CI; G8980-GP-CI; G8987-GO-CJ; G8988-GO-CH; J0696; J1650; J1815

== ENCOUNTER 2016-12-27 15:18 | Emergency (ER) | payer OTHER ==
[2016-12-27 15:24] VITALS: PULSE 86; TEMP 97.7
--- NOTE | 2016-12-27 15:26 | EDPHY ---
H & P Stated Complaint: just discharged yesterday/fluctuating bp's Time Seen by Provider: 12/27/16 15:25 - Personal History Current Tetanus/Diphtheria Vaccine: Yes Tetanus Vaccine Date: < 10 YEARS - Medical/Surgical History Hx Asthma: No Hx Chronic Respiratory Disease: No Hx Diabetes: Yes Hx Cardiac Disease: Yes Hx Renal Disease: No Hx Cirrhosis: No Hx Alcoholism: Yes Hx HIV/AIDS: No Hx Splenectomy or Spleen Trauma: No Other PMH: 1. atrial tachycardia, ablation, afib 2. pacemaker/defibrillator, 3. bipolar 4. CHF 5. panic attacks, anxiety 6. high cholesterol 7. cardiomyopathy, 8. gerd 9.DIABETES 10. PTSD. - Social History Smoking Status: Former smoker Constitutional: Initial Vital Signs Temperature (C) 36.5 C 12/27/16 15:22 Heart Rate 86 12/27/16 15:22 Respiratory Rate 17 12/27/16 15:22 Blood Pressure 153/112 H 12/27/16 15:22 O2 Sat (%) 100 12/27/16 15:22 O2 Delivery Mode Room Air Allergies/Adverse Reactions: Penicillins Allergy (Verified 12/27/16 15:21) Home Medications: Medication Instructions Recorded Acetaminophen [Tylenol ES 500 mg 500 mg PO TID PRN 12/24/16 (*)] Aspirin [Aspirin 81mg (*)] 81 mg PO DAILY 12/24/16 Atorvastatin Calcium [Lipitor 80 80 mg PO DAILY 12/24/16 mg] Gabapentin [Neurontin 300 MG (*)] 300 mg PO TID 12/24/16 Insulin NPH Human [humULIN N 100 0 units SC BIDMEAL 12/24/16 UNITS/ML (*)] Omeprazole [Prilosec 20 mg] 20 mg PO DAILY 12/24/16 QUEtiapine FUMARATE [Seroquel 100 50 mg PO BID@08,12 12/24/16 mg (*)] QUEtiapine FUMARATE [Seroquel 100 100 mg PO HS 12/24/16 mg (*)] clonazePAM [klonoPIN (*)] 3 mg PO HS PRN 12/24/16 metFORMIN HCL [Glucophage 500 mg 1,000 mg PO BIDMEAL 12/24/16 (*)] Medical Decision Making ED Course/Re-evaluation: CHIEF COMPLAINT: Hypertension HISTORY OF PRESENT ILLNESS: The patient is a 66 y/o male arriving with his daughter complaining of hypertension. He has a significant medical history including diabetes, hypertension, CHF, and atrial fibrillation. He was admitted on 12/24/16, 4 days ago, for hypotension, renal insufficiency, and dizziness and was discharged yesterday with instructions to hold all of his blood pressure medications. Today he noticed his blood pressure was 155 systolic and called his clinic, which referred him back to the ED. He continues to feel slightly off like prior to his admission and says, "my brain is ragged." He denies headache, chest pain, dizziness, dyspnea, fever, or other complaints. REVIEW OF SYSTEMS: A 10 point review of systems was performed and is negative with the exception of the elements mentioned in the history of present illness. PHYSICAL EXAM: HR, BP, O2 Sat, RR. Temp noted General Appearance: Alert, well hydrated, appropriate, and non-toxic appearing. Head: Atraumatic without scalp tenderness or obvious injury Eyes: Pupils equal, round, reactive to light and accommodation, EOMI, no trauma , no injection. Nose: Atraumatic, no rhinorrhea, clear. Throat: There is no erythema or exudates, no lesions, normal tonsils, mucus membranes moist. Neck: Supple. Respiratory: No retractions, no distress, no wheezes, and no accessory muscle use. Lungs are clear to auscultation bilaterally. Cardiovascular: Regular rate and rhythm, no murmurs, rubs, or gallops. Good capillary refill all extremities. Gastrointestinal: Abdomen is soft, nontender, non-distended, no masses, no rebound, no guarding, no peritoneal signs. Musculoskeletal: Normal active ROM of all extremities, atraumatic. Neurological: Alert, appropriate, and interactive. Nonfocal neuro exam. Skin: No rashes, good turgor, no nodules on palpation. Past medical history: diabetes, hypertension, hyperlipidemia, CHF, and atrial fibrillation, alcohol-induced cardiomyopathy, history of alcohol abuse Past surgical history: two ablations for atrial fibrillation, AICD pacemaker Family history: noncontributory Social history: Daughter at bedside. Former smoker. Lives in [place]. Uses marijuana. Prior medical records reviewed including admission 12/24/16 for hypotension after doubling his BP meds and renal insufficiency and dizziness. DIFFERENTIAL DIAGNOSIS: The differential diagnosis for the patient's symptoms included but was not limited to essential hypertension, discontinuation of medication, electrolyte abnormalities, dehydration, [employer] S[employer] REPRESENTATIVE causes, intoxicants. MEDICAL DECISION MAKING: This is a 66 y/o male who presents for evaluation of borderline hypertension after discontinuing his antihypertensives during his recent admission. He has no other acute complaints. His exam is unremarkable. Plan for IV, basic labs, and 20mg PO Lisinopril. His creatinine was 0.9 yesterday 12/26/16. Labs are unremarkable. BP at 17:00 has improved to 129/90. Patient will be discharged home with instructions to resume his daily lisinopril dose and follow up with his PCP this week. Return precautions given. He and his daughter are comfortable with this plan. - Data Points Laboratory Results: Laboratory Results 12/27/16 15:52 12/27/16 15:55 12/27/16 12/27/16 12/27/16 16:25 15:55 15:52 WBC 6.78 10^3/uL 10^3/uL (3.80-9.50) RBC 4.60 10^6/uL 10^6/uL (4.40-6.38) Hgb 12.3 g/dL L g/dL (13.7-17.5) Hct 38.0 % L % (40.0-51.0) MCV 82.6 fL fL (81.5-99.8) MCH 26.7 pg L pg (27.9-34.1) MCHC 32.4 g/dL g/dL (32.4-36.7) RDW 15.0 % % (11.5-15.2) Plt Count 288 10^3/uL D 10^3/uL (150-400) MPV 9.5 fL fL (8.7-11.7) Neut % (Auto) 50.9 % % (39.3-74.2) Lymph % (Auto) 28.2 % % (15.0-45.0) [place] % (Auto) 14.5 % H % (4.5-13.0) Eos % (Auto) 3.7 % % (0.6-7.6) Baso % (Auto) 1.5 % % (0.3-1.7) Nucleat RBC Rel Count 0.0 % % (0.0-0.2) Absolute Neuts (auto) 3.46 10^3/uL 10^3/uL (1.70-6.50) Absolute Lymphs (auto) 1.91 10^3/uL 10^3/uL (1.00-3.00) Absolute Monos (auto) 0.98 10^3/uL H 10^3/uL (0.30-0.80) Absolute Eos (auto) 0.25 10^3/uL 10^3/uL (0.03-0.40) Absolute Basos (auto) 0.10 10^3/uL 10^3/uL (0.02-0.10) Absolute Nucleated RBC 0.00 10^3/uL 10^3/uL (0-0.01) Immature Gran % 1.2 % H % (0.0-1.1) Immature Gran # 0.08 10^3/uL 10^3/uL (0.00-0.10) PT 14.4 SEC SEC (12.0-15.0) INR 1.13 (0.83-1.16) APTT 25.8 SEC SEC (23.0-38.0) Sodium 131 mEq/L L mEq/L (134-144) Potassium 4.3 mEq/L mEq/L (3.5-5.2) Chloride 91 mEq/L L D mEq/L (97-110) Carbon Dioxide 22 mEq/l mEq/l (22-31) Anion Gap 18 mEq/L H mEq/L (8-16) BUN 15 mg/dL mg/dL (7-23) Creatinine 0.8 mg/dL mg/dL (0.7-1.3) Estimated GFR > 60 Glucose 168 mg/dL H mg/dL (70-100) Calcium 9.7 mg/dL mg/dL (8.5-10.4) Total Bilirubin 0.9 mg/dL mg/dL (0.1-1.4) Conjugated Bilirubin 0.3 mg/dL mg/dL (0.0-0.5) Unconjugated Bilirubin 0.6 mg/dL mg/dL (0.0-1.1) AST 30 IU/L IU/L (17-59) ALT 30 IU/L IU/L (21-72) Alkaline Phosphatase 61 IU/L IU/L (38-126) Total Protein 8.0 g/dL g/dL (6.3-8.2) Albumin 4.4 g/dL g/dL (3.5-5.0) Medications Given: Discontinued Medications Lisinopril (Zestril) 20 mg PO EDNOW ONE Stop: 12/27/16 15:56 Last Admin: 12/27/16 16:02 Dose: 20 mg Departure - Departure Disposition: Home, Routine, Self-Care Clinical Impression: Hypertension Qualifiers: Hypertension type: essential hypertension Qualified Code(s): I10 - Essential ( primary) hypertension Condition: Good Instructions: Lisinopril (By mouth), Hypertension (ED) Additional Instructions: 1. Take 20mg lisinopril daily. 2. Follow up with your primary care provider this week. 3. Return to the ED for any worsening of condition. Referrals: LUISANA CHATTERJEE [Primary Care Provider] - As per Instructions Report Scribed for: Ghassan Patel Report Scribed by: Marimar Rollins Date of Report: 12/27/16 Time of Report: 15:28
[2016-12-27] MEDS ORDERED: LISINOPRIL 20 MG TAB PO ONE (15:55)
[2016-12-27 16:40] LABS: % IMMATURE GRANULYOCYTES 1.2 % (0.0-1.1); ABSOLUTE IMMATURE GRANULOCYTES 0.08 10^3/uL (0.00-0.10); ADD DIFF? NO; ADD MORPH? NO; ADD SCAN? NO; ATYPICAL LYMPHOCYTE FLAG 10 (0-99); FRAGMENT RBC FLAG 0 (0-99); HEMOGLOBIN 12.3 g/dL (13.7-17.5); LEFT SHIFT FLG 10 (0-99); LIPEMIA HEMOLYSIS FLAG 80 (0-99); MEAN CELL HEMOGLOBIN 26.7 pg (27.9-34.1); MEAN CELL HEMOGLOBIN CONCENTR. 32.4 g/dL (32.4-36.7); MEAN CELL VOLUME 82.6 fL (81.5-99.8); MEAN PLATELET VOLUME 9.5 fL (8.7-11.7); PLATELET CLUMPS FLAG 20 (0-99); PLATELET COUNT 288 10^3/uL (150-400)
[2016-12-27 17:07] LABS: ALANINE AMINOTRANSFERASE 30 IU/L (21-72); ALBUMIN 4.4 g/dL (3.5-5.0); ALKALINE PHOSPHATASE 61 IU/L (38-126); ANION GAP 18 mEq/L (8-16); ASPARTATE AMINOTRANSFERASE 30 IU/L (17-59); BILIRUBIN,TOTAL 0.9 mg/dL (0.1-1.4); BILIRUBIN-CONJUGATED 0.3 mg/dL (0.0-0.5); BILIRUBIN-UNCONJUGATED 0.6 mg/dL (0.0-1.1); CALCIUM 9.7 mg/dL (8.5-10.4); CARBON DIOXIDE 22 mEq/l (22-31); CHLORIDE 91 mEq/L (97-110); CREATININE 0.8 mg/dL (0.7-1.3); GLOMERULAR FILTRATION RATE > 60; GLUCOSE 168 mg/dL (70-100); POTASSIUM 4.3 mEq/L (3.5-5.2); SODIUM 131 mEq/L (134-144)
[2016-12-27 17:16] LABS: APTT 25.8 SEC (23.0-38.0); INR 1.13 (0.83-1.16); PROTIME(PATIENT) 14.4 SEC (12.0-15.0)
[2016-12-27 17:43] VITALS: BP 148/94; RESP 16; O2SAT 97
== END 2016-12-27 17:41 | disposition home or self-care (01) ==
DX: I11.0 Hypertensive heart disease with heart failure (principal); I50.9 Heart failure, unspecified; E11.9 Type 2 diabetes mellitus without complications; Z79.4 Long term (current) use of insulin; Z79.82 Long term (current) use of aspirin; Z79.84 Long term (current) use of oral hypoglycemic drugs; Z87.891 Personal history of nicotine dependence; Z95.0 Presence of cardiac pacemaker

== ENCOUNTER 2016-12-27 19:44 | Inpatient (IN) | payer OTHER ==
--- NOTE | 2016-12-27 20:15 | EDPHY ---
General Narrative: CHIEF COMPLAINT: Nausea vomiting HISTORY OF PRESENT ILLNESS: Patient presents to the ED for nausea vomiting. He was discharged from this facility several hours ago. Since that time, he reports multiple bouts of vomiting. He had constant vomiting for 30-60 minutes. He then had dry heaving. It was a painful vomiting. No blood. Non bilious. No chest pain. No shortness of breath. Symptoms were severe. There is starting to improve with Zofran that was administered in route by EMS. No fever chills. He was seen earlier today for hypertension. He was treated with lisinopril discharge home. No other associated complaints or modifying factors. REVIEW OF SYSTEMS: Ten systems reviewed and are negative unless otherwise noted in the HPI PCP: Dr. Glory Tate SPECIALISTS: PAST MEDICAL HISTORY: Atrial fibrillation, CHF, type 2 diabetes, hypertension, dyslipidemia, substance abuse PAST SURGICAL HISTORY: Reviewed. Significant for pacemaker placement SOCIAL HISTORY: Former smoker. Previous alcohol tobacco use or 10 years ago. Marijuana and benzodiazepines FAMILY HISTORY: None toward EXAMINATION General Appearance: Alert, no distress Head: normocephalic, atraumatic Eyes: Pupils equal and round, no conjunctival pallor or injection ENT, Mouth: Mucous membranes moist Neck: Normal inspection, supple, non-tender Respiratory: Mild rhonchi. No consolidation, crackles or diminishment. Cardiovascular: Irregularly regular with regular rate. Systolic murmur. Pulses intact distally symmetrically Gastrointestinal: Abdomen is soft and nontender. No tympany. No rigidity. No guarding. No distention. Neurological: A&O, nonfocal, strength is symmetric in all 4 limbs. Skin: Warm and dry, no rash Extremities: Nontender, no pedal edema Psychiatric: Mood and affect normal DIFFERENTIAL DIAGNOSES: Including but not limited to nausea vomiting, pancreatitis, cholecystitis, cholelithiasis, gastritis, cyclical vomiting MDM: 8:12 p.m. Nausea vomiting a very complicated patient. Does have frequent marijuana use. He has been seen in this facility several times recently. He was seen by Dr. Patel earlier today. Dr. Patel has discussed the case with Dr. Guevara directly, and the patient be admitted to the hospital for further workup and care. he is admitted in stable condition. - History Smoking Status: Former smoker - Objective Vital Signs: Initial Vital Signs Temperature (C) 98.1 F 12/27/16 19:44 Heart Rate 83 12/27/16 19:44 Respiratory Rate 12 12/27/16 19:44 Blood Pressure 141/100 H 12/27/16 19:44 O2 Sat (%) 99 12/27/16 19:44 O2 Delivery Mode Room Air Allergies/Adverse Reactions: Penicillins Allergy (Verified 12/27/16 15:21) Home Medications: Medication Instructions Recorded Acetaminophen [Tylenol ES 500 mg 500 mg PO TID PRN 12/24/16 (*)] Aspirin [Aspirin 81mg (*)] 81 mg PO DAILY 12/24/16 Atorvastatin Calcium [Lipitor 80 80 mg PO DAILY 12/24/16 mg] Gabapentin [Neurontin 300 MG (*)] 300 mg PO HS 12/24/16 Insulin NPH Human [humULIN N 100 0 units SC BIDMEAL 12/24/16 UNITS/ML (*)] Omeprazole [Prilosec 20 mg] 20 mg PO DAILY 12/24/16 QUEtiapine FUMARATE [Seroquel 100 100 mg PO HS 12/24/16 mg (*)] clonazePAM [klonoPIN (*)] 3 mg PO HS PRN 12/24/16 metFORMIN HCL [Glucophage 500 mg 1,000 mg PO BIDMEAL 12/24/16 (*)] Laboratory Results: 12/27/16 16:25 Troponin I < 0.012 ng/mL ng/mL (0.000-0.034) Lipase 148 IU/L IU/L (23-300) Medications Given: Clonazepam (Klonopin) 3 mg PO HS PRN PRN Reason: Sleep/Insomnia Stop: 06/25/17 21:16 Last Admin: 12/27/16 22:06 Dose: 3 mg Gabapentin (Neurontin) 300 mg PO [facility] Stop: 06/25/17 21:29 Last Admin: 12/27/16 22:04 Dose: 300 mg Quetiapine Fumarate (Seroquel) 100 mg PO [facility] Stop: 06/25/17 21:29 Last Admin: 12/27/16 22:04 Dose: 100 mg Departure - Departure Disposition: [facility] Clinical Impression: Cyclic vomiting syndrome Qualifiers: Vomiting Intractability: intractable Nausea presence: with nausea Qualified Code(s): G43.A1 - Cyclical vomiting, intractable Nausea & vomiting Qualifiers: Vomiting type: unspecified Vomiting Intractability: intractable Qualified Code( s): R11.2 - Nausea with vomiting, unspecified Condition: Good
--- NOTE | 2016-12-27 20:34 | CPEKG ---
Heart Rate: 86 RR Interval: 698 QRSD Interval: 102 QT Interval: 364 QTC Interval: 436 QRS [place]: -17 T Wave [place]: 19 EKG Severity - ABNORMAL ECG - EKG Impression: ACCELERATED JUNCTIONAL RHYTHM EKG Impression: BORDERLINE LEFT AXIS DEVIATION EKG Impression: CONSIDER POSTERIOR INFARCT Electronically Signed By: Ghassan Patel 27-Dec-2016 23:12:04
[2016-12-27 20:40] LABS: TROPONIN I < 0.012 ng/mL (0.000-0.034)
[2016-12-27] MEDS ORDERED: D50W 25 GM/50 ML SYR IVP PRN (21:03)
[2016-12-27] MEDS ORDERED: clonazePAM 1 MG TAB PO PRN (21:17)
--- NOTE | 2016-12-27 21:51 | GHP ---
[f rep st] HISTORY AND PHYSICAL DATE OF ADMISSION: 12/27/2016 REASON FOR ADMISSION: The patient is a 66-year-old gentleman with hypertension and a couple of [facility] admissions. He was admitted on the with volume depletion and hypotension in the setting of ne w antihypertensives. He was discharged yesterday on the . He returned this afternoon with hypert ension. For some reason, his clinic referred here for a systolic blood pressure of 155. He was rest arted on lisinopril. He took it here and then upon leaving the hospital he developed vomiting and he described it as "vomiting like I have never vomited before." He has not had diarrhea, does not have abdominal pain. There was no blood. It was nonbilious. He received Zofran en route in an ambulanc e and feels considerably better. He does not have chest pain or shortness of breath. REVIEW OF SYSTEMS: Complete 10-point review of systems conducted and negative except as noted in the HPI. PAST MEDICAL HISTORY: 1. Hypertension. 2. Recent admission in the setting of having his blood pressure medicines increased. 3. 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 4. Atrial fibrillation, status post 2 ablations, pacemaker, AICD. 5. EF is 55%. 6. 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 7. Marijuana abuse. SOCIAL HISTORY: Quit tobacco and alcohol 10 years ago. Lives part[place] in [place] [facility] who is in her 90s in [facility]. FAMILY HISTORY: His mother is in her 90s, so is notable for longevity. PHYSICAL EXAMINATION: VITAL SIGNS: Presenting vital signs today: Temperature 36.7, blood pressure 141/100, pulse 83, breathing 12 times a minute, 99% on room air. GENERAL: No acute distress. HEENT : Sclerae anicteric. Oropharynx clear. Mucous membranes moist. NECK: Supple without lymphadenopa thy or JVD. LUNGS: Clear to auscultation bilaterally. HEART: S1, S2. ABDOMEN: Soft, nontender, nondistended. Bowel sounds are present. LOWER EXTREMITIES: No edema. Calves nontender. SKIN: Wi thout rash. NEUROLOGIC: Nonfocal. LABORATORY DATA: White count 6.8, hematocrit is 38, platelets are 288,000. Those are his labs from his visit this afternoon; repeats are pending. His coags were normal. Sodium 131, potassium 4.3, ch loride 91, bicarb 22, BUN 15, creatinine 0.8, glucose 168. LFTs normal. Troponin less than 0.012. Lipase is normal at 148. EKG interpreted by me shows sinus at 86 with normal axis and intervals and a wavy baseline. No ST or T-wave changes. Compared with prior, it is unchanged. I discussed the case with Dr. Ghassan Patel. ASSESSMENT/PLAN: This is a 66-year-old gentleman who presents with vomiting. 1. Vomiting, uncertain etiology. It would not appear that it is lisinopril because he has been on i t for 20 years prior to that. He has a nontender abdominal exam. He does not have pancreatitis. I do not suspect alcohol. He is not having diarrhea to suggest food poisoning. We will follow, give h im some IV fluids. 2. Hypertension. We will follow his blood pressures, restart his lisinopril. It is certainly eleva gillian now but is in the ER, it is a little hard to follow. 3. Diabetes. The patient has diabetes. We will continue his insulin therapy when his medications h ave been reconciled. We will put him on a sliding scale now. 4. Nonischemic cardiomyopathy. He is essentially very close to normal systolic function. We will f jose. 5. Disposition. Observation status. 6. Prophylaxis. Pharmacologic prophylaxis is indicated if in the hospital longer than 24 hours. /[id number]/MODL
[2016-12-27] MEDS: QUEtiapine FUMARATE 100 MG TAB PO SCH (22:04)
[2016-12-27] MEDS: GABAPENTIN 300 MG CAP PO SCH (22:04)
--- NOTE | 2016-12-28 08:47 | HOSPPROG ---
Hospitalist Progress Note Assessment/Plan: Patient is a 66-year-old gentleman with hypertension. He was recently admitted for hypotension secondary to his antihypertensives. He was referred by the clinic because the systolic blood pressure was elevated at 155. His lisinopril was resumed. But then he had an episode of vomiting today is my 1st encounter with the patient. Chart reviewed. * vomiting without diarrhea none today suspect it may have been from hypotensive event * hypertension Blood pressures been somewhat labile will encourage him to get a blood pressure cuff for home use resumed ACEI * diabetes type 2 * nonischemic cardiomyopathy *Plan: will monitor bp and see if he can eat Subjective: Joaquin has no complaints/ no further vomiting. Objective: Vital Signs Temp Pulse Resp BP Pulse Ox 36.4 C 83 14 102/70 96 12/28/16 08:14 12/28/16 08:14 12/28/16 08:14 12/28/16 08:14 12/28/16 08:14 - Physical Exam Constitutional: no apparent distress, appears nourished, not in pain Eyes: PERRL Ears, Nose, Mouth, Throat: hearing normal Cardiovascular: regular rate and rhythym Respiratory: no respiratory distress Gastrointestinal: normoactive bowel sounds Skin: warm Musculoskeletal: full muscle strength Neurologic: AAOx3 Psychiatric: interacting appropriately ICD10 Worksheet Patient Problems: Problems Problem Status Onset Cyclic vomiting syndrome Acute Nausea & vomiting Acute Adverse effects of medication Acute Cardiomyopathy Acute Dehydration Acute Hypotension Acute Renal insufficiency Acute Supraventricular tachycardia Acute
[2016-12-28] MEDS: PANTOPRAZOLE SODIUM 40 MG TAB PO SCH (08:49)
[2016-12-28] MEDS: metFORMIN HCL 500 MG TAB PO SCH ×2 (08:49→18:16)
[2016-12-28] MEDS: ASPIRIN 81 MG CHEWABLE TAB PO SCH (08:49)
[2016-12-28] MEDS: ATORVASTATIN CALCIUM 40 MG TAB PO SCH (08:49)
[2016-12-28] MEDS: ACETAMINOPHEN 325 MG TAB PO PRN (09:46)
[2016-12-28] MEDS: INSULIN LISPRO 100 UNIT/ML SC SCH ×3 (10:34→18:30)
--- NOTE | 2016-12-28 11:12 | ASMTCMCOM ---
CM Note CM Note Notes: 12/28/2016 Case Management Note: Reviewed chart. No Case Management d/c needs identified at this time d/t pt age, activity levels and family support at time of admission. No PT or OT evals ordered. No Case Management needs arranged with recent 12/26 discharge. Case Management d/c poc: Home independent w/follow up as directed when medically stable. Case Management available if needs change. Date Signed: 12/28/2016 11:11 AM Electronically Signed By:Jessica Ceja RN
[2016-12-28] MEDS ORDERED: LISINOPRIL 5 MG TAB PO SCH (12:45)
[2016-12-28] MEDS ORDERED: ONDANSETRON DISINTEGRATING 4 MG TAB ONE (18:12)
[2016-12-28] MEDS: ONDANSETRON DISINTEGRATING 4 MG TAB PO PRN (18:16)
[2016-12-28] MEDS: GABAPENTIN 300 MG CAP PO SCH (20:23)
[2016-12-28] MEDS: clonazePAM 1 MG TAB PO PRN (20:23)
[2016-12-28] MEDS: QUEtiapine FUMARATE 100 MG TAB PO SCH (20:23)
[2016-12-29 05:38] LABS: ANION GAP 13 mEq/L (8-16); CALCIUM 9.4 mg/dL (8.5-10.4); CARBON DIOXIDE 22 mEq/l (22-31); CHLORIDE 94 mEq/L (97-110); CREATININE 0.8 mg/dL (0.7-1.3); GLOMERULAR FILTRATION RATE > 60; GLUCOSE 123 mg/dL (70-100); POTASSIUM 3.3 mEq/L (3.5-5.2); SODIUM 129 mEq/L (134-144)
[2016-12-29] MEDS: metFORMIN HCL 500 MG TAB PO SCH ×2 (08:17→17:27)
[2016-12-29] MEDS: PANTOPRAZOLE SODIUM 40 MG TAB PO SCH (08:17)
[2016-12-29] MEDS: ASPIRIN 81 MG CHEWABLE TAB PO SCH (08:17)
[2016-12-29] MEDS: ATORVASTATIN CALCIUM 40 MG TAB PO SCH (08:17)
[2016-12-29] MEDS: INSULIN LISPRO 100 UNIT/ML SC SCH ×3 (08:21→17:33)
[2016-12-29] MEDS ORDERED: PROTOCOL POTASSIUM 1 DOSE MISC PRN (11:13)
--- NOTE | 2016-12-29 11:19 | HOSPPROG ---
Hospitalist Progress Note Assessment/Plan: Patient is a 66-year-old gentleman with hypertension. He was recently admitted for hypotension secondary to his antihypertensives. He was referred by the clinic because the systolic blood pressure was elevated at 155. His lisinopril was resumed. But then he had an episode of vomiting. * vomiting without diarrhea none today suspect it may have been from hypotensive event * hypertension was recently dc for hypotension was instructed to stop bp meds, but continued taking them, he was unclear bp has been stable w stopping all of his medications will place him on the school lunch monitor to evaluate any tachyarrhythmias Blood pressures been somewhat labile will encourage him to get a blood pressure cuff for home use * diabetes type 2 on oral agents and sliding scale *Hyponatremia check urine studies *Hypokalemia electrolyte repletion protocol * nonischemic cardiomyopathy *Plan: hold all bp meds, I decreased his Clonidine to 1 mg from 3 mg/ appreciate Aysha BISHOP seeing him/ patient does best with writing everything out. Will have him see Dr Gooden as an OP. Will have PT and OT see him to be sure he is ok to dc back home. Subjective: Joaquin said he is finally feeling better. Slept well. Objective: Vital Signs Temp Pulse Resp BP Pulse Ox 36.7 C 77 16 105/62 94 12/29/16 08:00 12/29/16 08:00 12/29/16 08:00 12/29/16 08:00 12/29/16 08:00 Laboratory Results 12/29/16 05:03 12/28/16 12/29/16 12/30/16 05:59 05:59 05:59 Intake Total 175 Balance 175 - Physical Exam Constitutional: no apparent distress, appears nourished Eyes: PERRL Ears, Nose, Mouth, Throat: hearing normal Cardiovascular: regular rate and rhythym Respiratory: no respiratory distress Skin: warm Musculoskeletal: generalized weakness Neurologic: AAOx3 Psychiatric: interacting appropriately, poor memory ICD10 Worksheet Patient Problems: Problems Problem Status Onset Cyclic vomiting syndrome Acute Nausea & vomiting Acute Adverse effects of medication Acute Cardiomyopathy Acute Dehydration Acute Hypotension Acute Renal insufficiency Acute Supraventricular tachycardia Acute
[2016-12-29] MEDS: ONDANSETRON DISINTEGRATING 4 MG TAB PO PRN (17:27)
[2016-12-29 19:15] LABS: POTASSIUM 3.9 mEq/L (3.5-5.2)
[2016-12-29] MEDS ORDERED: POTASSIUM CL 10 MEQ TAB PO ONE (20:50)
[2016-12-29] MEDS: GABAPENTIN 300 MG CAP PO SCH (21:05)
[2016-12-29] MEDS: QUEtiapine FUMARATE 100 MG TAB PO SCH (21:05)
[2016-12-29] MEDS: ACETAMINOPHEN 325 MG TAB PO PRN (21:10)
[2016-12-29] MEDS ORDERED: BISACODYL 10 MG SUPP PR PRN (23:13)
[2016-12-29] MEDS ORDERED: POLYETHYLENE GLYCOL 3350 17 GM PKT PO PRN (23:13)
[2016-12-30] MEDS: clonazePAM 1 MG TAB PO PRN ×3 (02:30→23:08)
[2016-12-30] MEDS: hydrOXYzine HCL 25 MG TAB PO PRN ×3 (02:56→18:41)
[2016-12-30] MEDS: ACETAMINOPHEN 325 MG TAB PO PRN ×2 (02:59→11:43)
[2016-12-30 05:57] LABS: ANION GAP 15 mEq/L (8-16); CALCIUM 9.1 mg/dL (8.5-10.4); CARBON DIOXIDE 21 mEq/l (22-31); CHLORIDE 94 mEq/L (97-110); CREATININE 0.8 mg/dL (0.7-1.3); GLOMERULAR FILTRATION RATE > 60; GLUCOSE 140 mg/dL (70-100); POTASSIUM 3.5 mEq/L (3.5-5.2); SODIUM 130 mEq/L (134-144)
--- NOTE | 2016-12-30 08:33 | HOSPPROG ---
Hospitalist Progress Note Assessment/Plan: Patient is a 66-year-old gentleman with hypertension. He was recently admitted for hypotension secondary to his antihypertensives. He was referred by the clinic because the systolic blood pressure was elevated at 155. His lisinopril was resumed. But then he had an episode of vomiting. * suicide ideation Patient stating he will take a gun to his head and she had himself Says he is underlying PTSD and feels that he can't cope any more Will transfer to ICU place him on an M1 hold and get a TLC evaluation Patient has underlying PTSD and bipolar disorder Said he has been having suicidal thoughts for the past month * vomiting without diarrhea none today suspect it may have been from hypotensive event * hypertension was recently dc for hypotension was instructed to stop bp meds, but continued taking them, he was unclear bp has been stable w stopping all of his medications will place him on the minute clerk for basic traffic to evaluate any tachyarrhythmias Blood pressure has been stable with discontinuing all his blood pressure medications * diabetes type 2 on oral agents and sliding scale *Hyponatremia Has a low urine sodium secondary to hypovolemia *Hypokalemia electrolyte repletion protocol * nonischemic cardiomyopathy Plan: Patient is medically ready to go home but because of his ideas of suicide intent and plan will place him on an M1 hold and place in ICU. Spoke with the nurse discharge planner Noah and he accepts transfer. Also spoke to to Juan with behavior health services and they will see him today. If he can be deferred to the behavior health unit today that can be initiated if needed. Subjective: Joaquin is tearful and crying. Says he him take it anymore. He understands that I am placing him on M1 hold and the implications of this Objective: Vital Signs Temp Pulse Resp BP Pulse Ox 36.5 C 94 12 116/74 91 L 12/30/16 07:52 12/30/16 07:52 12/30/16 07:52 12/30/16 07:52 12/30/16 07:52 Laboratory Results 12/30/16 04:59 12/29/16 12/30/16 12/31/16 05:59 05:59 05:59 Intake Total 175 500 Balance 175 500 - Physical Exam Constitutional: uncomfortable Eyes: PERRL Ears, Nose, Mouth, Throat: hearing normal Respiratory: no respiratory distress Skin: warm Musculoskeletal: full muscle strength Neurologic: AAOx3 Psychiatric: thought process linear, anxious, suicidal ideation ICD10 Worksheet Patient Problems: Problems Problem Status Onset Cyclic vomiting syndrome Acute Nausea & vomiting Acute Adverse effects of medication Acute Cardiomyopathy Acute Dehydration Acute Hypotension Acute Renal insufficiency Acute Supraventricular tachycardia Acute
[2016-12-30] MEDS: DOCUSATE SODIUM 100 MG CAP PO SCH ×2 (08:47→20:18)
[2016-12-30] MEDS: ASPIRIN 81 MG CHEWABLE TAB PO SCH (08:47)
[2016-12-30] MEDS: PANTOPRAZOLE SODIUM 40 MG TAB PO SCH (08:47)
[2016-12-30] MEDS: metFORMIN HCL 500 MG TAB PO SCH ×2 (08:47→18:17)
[2016-12-30] MEDS: ATORVASTATIN CALCIUM 40 MG TAB PO SCH (08:47)
[2016-12-30] MEDS: INSULIN LISPRO 100 UNIT/ML SC SCH ×3 (08:47→18:17)
[2016-12-30] MEDS: PSYLLIUM METAMUCIL 1 PKT PO SCH (08:47)
[2016-12-30] MEDS ORDERED: POTASSIUM CL 10 MEQ TAB PO ONE ×2 (10:27→19:43)
--- NOTE | 2016-12-30 10:51 | ASMTCMCOM ---
CM Note CM Note Notes: Pt threating to harm himself, pt originally thought to be independent but cognition difficulties noted by hospitalist and a COOL ROOFING INSTALLER eval determined him to be in dementia range based on SLUMS score, pls read COOL ROOFING INSTALLER note, AMELIA w/f. Date Signed: 12/30/2016 10:50 AM Electronically Signed By:Cari Serrano RN
--- NOTE | 2016-12-30 13:10 | GCON ---
[f rep st] CONSULTATION PRESCHOOL ADVISER CONSULTATION REASON FOR ADMISSION: Intensive care unit, suicidal ideation. HISTORY OF PRESENT ILLNESS: The patient is a 66-year-old white male with a past medical history incl uding hypertension, cardiomyopathy, alcohol abuse. He was initially admitted on 12/27/2016 with naus ea and vomiting. After admission, however, he expressed suicidal ideation, and he was transferred to the intensive care unit on M1 hold. The patient states he was going to take a gun to his head. His nausea and vomiting have resolved. The patient is currently resting comfortably. PAST MEDICAL HISTORY: Again, significant for hypertension, diabetes, cardiomyopathy. ALLERGIES: No known allergies to medications. SOCIAL HISTORY: Previous heavy tobacco use, none for 10 years. Previous heavy alcohol use, none for 10 years. He resides in [place]. CURRENT MEDICATIONS: Include Tylenol, aspirin, Lipitor, Dulcolax, Klonopin, Colace, Neurontin, Humal og, lispro, Glucophage, Zofran, Protonix, MiraLAX, potassium and Seroquel. PHYSICAL EXAMINATION: VITAL SIGNS: Blood pressure is 124/79, pulse 103, respirations 15, temperatur e 36.7, oxygen saturation 95% on room air. GENERAL: He is a well-developed, yet unkempt, 66-year-ol d, white male, who is resting comfortably, in no acute distress. HEENT: Eyes PERRLA, EOMI. Throat shows no erythema or tonsillar hypertrophy. NECK: Supple. No cervical adenopathy. HEART: Regular rate and rhythm, with a 2/6 systolic murmur at the left sternal border without radiation. LUNGS: D iminished breath sounds, but no wheeze. ABDOMEN: Soft, nontender. Bowel sounds are present in all 4 quadrants. EXTREMITIES: No clubbing, cyanosis, or edema. LABORATORY: Sodium is 130, potassium 3.5, chloride 94, CO2 is 21, BUN 16, creatinine 0.8, glucose is 150. IMPRESSION: 1. Suicidal ideation. 2. Nausea and vomiting, resolved. 3. Cardiomyopathy. 4. Hypertension. 5. Diabetes. RECOMMENDATION: 1. Agree with M1 hold. 2. Consult mental health when patient is medically cleared. 3. Deep vein thrombosis and pulmonary embolus prophylaxis. 4. Stress ulcer prophylaxis. 5. Adequate blood pressure control. 6. Adequate blood sugar control. 7. /[id number]/MODL
--- NOTE | 2016-12-30 15:31 | ASMTCMCOM ---
CM Note CM Note Notes: Chart reviewed , patient to have TLC eval this PM. CM to follow. Date Signed: 12/30/2016 03:31 PM Electronically Signed By:Debbie Braxton RN
[2016-12-30] MEDS: ONDANSETRON DISINTEGRATING 4 MG TAB PO PRN (19:25)
[2016-12-30 19:41] LABS: POTASSIUM 3.6 mEq/L (3.5-5.2)
[2016-12-30] MEDS: QUEtiapine FUMARATE 100 MG TAB PO SCH (20:19)
[2016-12-30] MEDS: GABAPENTIN 300 MG CAP PO SCH (20:19)
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
[2016-12-30 23:15] VITALS: O2SAT 92
[2016-12-31 06:17] VITALS: PULSE 94; RESP 16; TEMP 98
[2016-12-31 07:15] LABS: ALANINE AMINOTRANSFERASE 45 IU/L (21-72); ALKALINE PHOSPHATASE 58 IU/L (38-126); ANION GAP 14 mEq/L (8-16); ASPARTATE AMINOTRANSFERASE 23 IU/L (17-59); BILIRUBIN,TOTAL 0.8 mg/dL (0.1-1.4); CALCIUM 9.6 mg/dL (8.5-10.4); CARBON DIOXIDE 21 mEq/l (22-31); CHLORIDE 100 mEq/L (97-110); CREATININE 0.8 mg/dL (0.7-1.3); GLOMERULAR FILTRATION RATE > 60; GLUCOSE 140 mg/dL (70-100); POTASSIUM 4.3 mEq/L (3.5-5.2); SODIUM 135 mEq/L (134-144); TOTAL PROTEIN 7.2 g/dL (6.3-8.2)
[2016-12-31] MEDS: PSYLLIUM METAMUCIL 1 PKT PO SCH ×2 (08:09→08:15)
[2016-12-31] MEDS: ASPIRIN 81 MG CHEWABLE TAB PO SCH (08:15)
[2016-12-31] MEDS: DOCUSATE SODIUM 100 MG CAP PO SCH (08:15)
[2016-12-31] MEDS: ATORVASTATIN CALCIUM 40 MG TAB PO SCH (08:15)
[2016-12-31] MEDS: metFORMIN HCL 500 MG TAB PO SCH (08:15)
[2016-12-31] MEDS: PANTOPRAZOLE SODIUM 40 MG TAB PO SCH (08:15)
[2016-12-31] MEDS: INSULIN LISPRO 100 UNIT/ML SC SCH (08:16)
--- NOTE | 2016-12-31 08:16 | HOSPPROG ---
Hospitalist Progress Note Assessment/Plan: Patient is a 66-year-old gentleman with hypertension. He was recently admitted for hypotension secondary to his antihypertensives. He was referred by the clinic because the systolic blood pressure was elevated at 155. His lisinopril was resumed. But then he had an episode of vomiting. * suicide ideation Patient stating he will take a gun to his head and she had himself tx to * vomiting without diarrhea none today suspect it may have been from hypotensive event * hypertension was recently dc for hypotension was instructed to stop bp meds, but continued taking them, he was unclear bp has been stable w stopping all of his medications will place him on the office equipment mechanic to evaluate any tachyarrhythmias Blood pressure has been stable with discontinuing all his blood pressure medications * diabetes type 2 on oral agents and sliding scale *Hyponatremia resolved *Hypokalemia electrolyte repletion protocol * nonischemic cardiomyopathy Plan: dc to Subjective: Joaquin is relieved to go to . Objective: Vital Signs Temp Pulse Resp BP Pulse Ox 36.6 C 94 16 112/78 92 12/31/16 04:00 12/31/16 04:00 12/31/16 04:00 12/31/16 04:00 12/31/16 04:00 Laboratory Results 12/31/16 06:20 12/30/16 12/31/16 01/01/17 05:59 05:59 05:59 Intake Total 500 750 Balance 500 750 - Physical Exam Constitutional: no apparent distress, appears nourished, not in pain Eyes: PERRL Ears, Nose, Mouth, Throat: hearing normal Respiratory: no respiratory distress Skin: warm Musculoskeletal: full muscle strength Neurologic: AAOx3 Psychiatric: interacting appropriately ICD10 Worksheet Patient Problems: Problems Problem Status Onset Cyclic vomiting syndrome Acute Nausea & vomiting Acute Adverse effects of medication Acute Cardiomyopathy Acute Dehydration Acute Hypotension Acute Renal insufficiency Acute Supraventricular tachycardia Acute
--- NOTE | 2016-12-31 08:21 | PDIAF ---
- Diagnosis Diagnosis: susicide ideation, hypotension - Medication Management Discharge Medications: Medications to Continue on Transfer Acetaminophen [Tylenol ES 500 mg (*)] 500 mg PO TID PRN 12/24/16 [Last Taken Unknown] Aspirin [Aspirin 81mg (*)] 81 mg PO DAILY 12/24/16 [Last Taken 12/27/16] Atorvastatin Calcium [Lipitor 80 mg] 80 mg PO DAILY 12/24/16 [Last Taken ] Gabapentin [Neurontin 300 MG (*)] 300 mg PO HS 12/24/16 [Last Taken 12/26/16] Insulin NPH Human [humULIN N 100 UNITS/ML (*)] 0 units SC BIDMEAL 12/24/16 [ Last Taken 12/27/16 07:00] Omeprazole [Prilosec 20 mg] 20 mg PO DAILY 12/24/16 [Last Taken 12/26/16] QUEtiapine FUMARATE [Seroquel 100 mg (*)] 100 mg PO HS 12/24/16 [Last Taken 05/13] metFORMIN HCL [Glucophage 500 mg (*)] 1,000 mg PO BIDMEAL 12/24/16 [Last Taken 12/27/16] Acetaminophen [Tylenol 325mg (*)] 650 mg PO Q4HRS PRN tab 12/31/16 [Last Taken Unknown] Psyllium Seed [Metamucil (*)] 2 each PO DAILY pkt 12/31/16 [Last Taken Unknown] QUEtiapine FUMARATE [Seroquel 100 mg (*)] 100 mg PO HS tab 12/31/16 [Last Taken Unknown] clonazePAM [klonoPIN (*)] 1 mg PO TID PRN tab 12/31/16 [Last Taken Unknown] hydrOXYzine HCL [hydrOXYzine HCL (RX)] 25 mg PO Q8HRS PRN tab 12/31/16 [Last Taken Unknown] metFORMIN HCL [Glucophage 500 mg (*)] 1,000 mg PO BIDMEAL tab 12/31/16 [Last Taken Unknown] Discharge Medications: Refer to the Discharge Home Medication list for PRN reason. - Orders Diet Recommendation: ADA 2000 consistent carb Diet Texture: Regular Texture Diet Additional: patient needs an appt with Dr Gooden. Should make this when at because it may take a bit to get in. If Dr Gooden schedule is full, ok for him to see one of the other cardiology providers. - Follow Up Care Current Providers and Referrals: LUISANA CHATTERJEE [Primary Care Provider] - As per Instructions
[2016-12-31 08:50] VITALS: BP 117/82
--- NOTE | 2016-12-31 11:59 | GDS ---
[f rep st] DISCHARGE SUMMARY DISCHARGE DIAGNOSES: 1. Suicidal ideation with a plan. 2. Vomiting without diarrhea. 3. Hypertension with bouts of hypotension. 4. Diabetes type 2. 5. Hyponatremia. 6. Hypokalemia. 7. Nonischemic cardiomyopathy. CONSULTATIONS: Dr. Aria Aaron with [facility]. HISTORY: Briefly, the patient is a 66-year-old gentleman who was recently at [facility]. He was admitted with volume depletion and hypotension. He was then discharged and went to see his primary care provider and was concerned his blood pressure was elevated. He was started on lisinopril and then had an episode of vomiting. In further discussion with the patient, he went home and resumed his home medications. I suspect a lot of his nausea and vomiting were secondary to being hypotensive. During his stay, all of his blood pressure medications were discontinued. He is on Klonopin 3 mg q.h.s. This dose was decreased. The patient, during his stay, had commented that he has been thinking of taking his life for the past month, and he had a plan to either hang himself in the hospital room or to use a gun. He was further evaluated by Dr. Aria Aaron, and the plan is for him to go to [facility] today to help manage his symptoms. HOSPITAL COURSE: 1. Suicidal ideation, to go to [facility] to help manage his medications. 2. Vomiting without diarrhea. This resolved. 3. Hypertension. He was recently discharged for hypotension. He had told me he had taken all his medications when he got home, even though being instructed to stop all of them. He was confused about this. All of his blood pressure medications have been stopped. His heart rate has been stable, and blood pressure has been fine without it. I have recommended that he see Dr. Gooden, one of the cardiologists, for followup care. 4. Diabetes type 2, on oral agents and insulin. 5. Hyponatremia, resolved. 6. Hypokalemia, stable. 7. Nonischemic cardiomyopathy, stable. DISCHARGE CONDITION: Stable. Blood pressure is 112/78. Heart rate is 94. Respiratory rate is 16. O2 sats on room air are 92%. Temperature is 36.6 Celsius. DISCHARGE MEDICATIONS: Please see the EMR. DISCHARGE INSTRUCTIONS: To follow up with Dr. Gooden as soon as he gets out of behavioral health. Greater than 30 minutes discharging and coordinating his care. /[id number]/MODL MTDD
--- NOTE | 2016-12-31 18:58 | ASMTCMCOM ---
CM Note CM Note Notes: Late Entry: Reviewed chart re: d/c poc, pt's progress. Pt suicidal w/ plan; per MD notes pt to transfer to [facility] for help managing medications. Pt to f/u as directed. CM avail for any further issues or concerns. Date Signed: 12/31/2016 06:57 PM Electronically Signed By:Louisa Sin RN
--- NOTE | 2016-12-31 18:59 | ASDISCHSUM ---
Discharge Information Plan Status:Psych Placement/Petitioned Medically Cleared to Leave:12/31/2016 Discharge Date:12/31/2016 08:45 AM CM D/C [facility]position[facility] D/C Disposition:[facility] Projected Discharge Date:12/31/2016 08:45 AM Transportation at D/C:None or Unknown Discharge Delay Reason: Follow-Up Date:12/31/2016 08:45 AM Discharge Slot:1 - 8:01 am - 12:00 noon Final Diagnosis:SI w/ plan, vomiting w/o diarrhea, HTN Placement Information Patient Contact Information Contact Name:ANDREINA Relationship:Friend Address: Work Phone: City: [facility] Phone: [facility]/[employer] Code: Email: Financial Information Financial Class: Primary Plan Desc:MEDICARE INPATIENT Primary Plan Number:[id number] Secondary Plan Desc[facility] Secondary Plan Number:[id number] Assessment Information [facility] CM Progress Note CM Note CM Note Notes: 12/28/2016 Case Management Note: Reviewed chart. No Case Management d/c needs identified at this time d/t pt age, activity levels and family support at time of admission. No PT or OT evals ordered. No Case Management needs arranged with recent 12/26 discharge. Case Management d/c poc: Home independent w/follow up as directed when medically stable. Case Management available if needs change. Date Signed: 12/28/2016 11:11 AM Electronically Signed By:Jessica Ceja RN [facility] CM Progress Note CM Note CM Note Notes: Pt threating to harm himself, pt originally thought to be independent but cognition difficulties noted by hospitalist and a VET ASSISTANT eval determined him to be in dementia range based on SLUMS score, pls read VET ASSISTANT note, AMELIA w/f. Date Signed: 12/30/2016 10:50 AM Electronically Signed By:Cari Serrano RN [facility] CM Progress Note CM Note CM Note Notes: Chart reviewed , patient to have TLC eval this PM. CM to follow. Date Signed: 12/30/2016 03:31 PM Electronically Signed By:Debbie Braxton RN [facility] CM Progress Note CM Note CM Note Notes: Late Entry: Reviewed chart re: d/c poc, pt's progress. Pt suicidal w/ plan; per MD notes pt to transfer to [facility] for help managing medications. Pt to f/u as directed. CM avail for any further issues or concerns. Date Signed: 12/31/2016 06:57 PM Electronically Signed By:Louisa Sin RN Intervention Information Intervention Type:*WOLFGANG-Signed Date of Service:12/28/2016 02:09 PM Patient Type:Observation Staff Member:Michelle Chiang Hours: Discipline: Severity: Comment:
== END 2016-12-31 08:45 | DRG 305 ==
LOC: EDUNIT# → F3E 21:27 → OBSVTOIN 12-28 15:39 → EEVIPCON 12-28 15:39 → F2N 12-30 09:59
PROVIDERS: ADMIT Internal Medicine; ATTEND Internal Medicine
DX: I10 Essential (primary) hypertension (principal); R11.10 Vomiting, unspecified; I42.9 Cardiomyopathy, unspecified; E87.1 Hypo-osmolality and hyponatremia; E11.9 Type 2 diabetes mellitus without complications; F32.9 Major depressive disorder, single episode, unspecified; F12.90 Cannabis use, unspecified, uncomplicated; F16.983 Hallucinogen use, unspecified with hallucinogen persisting perception disorder (flashbacks); F43.10 Post-traumatic stress disorder, unspecified; E87.6 Hypokalemia; Z87.891 Personal history of nicotine dependence
CPT/HCPCS: 82607-90; 97110-GP; 97116-GP; 97161-GP; 97165-GO; G0378; G8978-GP-CI; G8979-GP-CI; G8987-GO-CI; G8988-GO-CI; G8989-GO-CI; G9165-GN-CK; G9166-GN-CJ; J1815

== ENCOUNTER 2016-12-31 09:05 | Inpatient (IN) | payer OTHER ==
[2016-12-31] MEDS ORDERED: MAGNESIUM HYDROXIDE 30 ML UDCUP PO PRN (12:50)
[2016-12-31] MEDS ORDERED: MAG HYDROX/AL HYDROX/SIMETH 30 ML UDCUP PO PRN (12:50)
[2016-12-31] MEDS ORDERED: BISACODYL 10 MG SUPP PR PRN (12:54)
[2016-12-31] MEDS ORDERED: ONDANSETRON DISINTEGRATING 4 MG TAB PO PRN (12:59)
[2016-12-31] MEDS ORDERED: POLYETHYLENE GLYCOL 3350 17 GM PKT PO PRN (13:00)
[2016-12-31] MEDS: hydrOXYzine HCL 25 MG TAB PO PRN (13:58)
[2016-12-31] MEDS: PANTOPRAZOLE SODIUM 40 MG TAB PO SCH (13:58)
[2016-12-31] MEDS ORDERED: PARAMETERS MISC PRN (14:22)
[2016-12-31] MEDS ORDERED: D50W 25 GM/50 ML VIAL IVP PRN (14:22)
[2016-12-31] MEDS ORDERED: D50W 25 GM/50 ML SYR IVP PRN (14:22)
[2016-12-31] MEDS: ATORVASTATIN CALCIUM 40 MG TAB PO SCH (14:40)
[2016-12-31] MEDS: ASPIRIN EC 81 MG TAB PO SCH (14:40)
[2016-12-31] MEDS: PSYLLIUM METAMUCIL 1 PKT PO SCH (14:41)
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
[2016-12-31] MEDS: clonazePAM 1 MG TAB PO SCH ×2 (16:13→22:28)
[2016-12-31] MEDS: metFORMIN HCL 500 MG TAB PO SCH (16:29)
[2016-12-31] MEDS: INSULIN LISPRO 100 UNIT/1 ML VIAL STANDARD SC SCH (16:32)
[2016-12-31] MEDS ORDERED: INSULIN LISPRO PROTAMINE SC SCH (18:00)
[2016-12-31] MEDS ORDERED: INSULIN LISPRO SC SCH (18:00)
--- NOTE | 2016-12-31 18:16 | BCON ---
[f rep st] BEHAVIORAL HEALTH CONSULTATION DATE OF CONSULTATION: 12/31/2016 REFERRING PHYSICIAN: Aria Aaron MD REASON FOR REFERRAL: Medical clearance for inpatient behavioral health stay. HISTORY OF PRESENT ILLNESS: This patient comes to [facility] inpatient rehabilitation from [facility]. He had been hospitalized there for several days following an episode of hypotension. He was discharged, but returned with nausea and vomiting. No specific etiology was found for the nausea and vomiting; however, he was hypotensive again and had resumed his home blood pressure medications, which had recently been increased by his primary care provider. He was hydrated and stabilized. He expressed suicidal ideation and so he was discharged to inpatient Behavioral Health for further psychiatric care. He currently is without any acute complaints and reports that he is feeling better. PAST MEDICAL HISTORY: 1. Bipolar disorder. 2. Nonischemic cardiomyopathy. 3. Atrial fibrillation. 4. Diabetes mellitus, type 2. 5. Hypertension. 6. Dyslipidemia. 7. History of polysubstance abuse. PAST SURGICAL HISTORY: He has had ablations x2 for atrial fibrillation and he has had placement of a pacemaker/AICD. MEDICATIONS: 1. Acetaminophen 650 mg p.o. q.4 hours p.r.n. 2. Aspirin 81 mg p.o. daily. 3. Atorvastatin 80 mg p.o. daily. 4. Clonazepam 1 mg t.i.d. 5. Docusate 100 mg b.i.d. 6. Gabapentin 300 mg q.h.s. .. 7. Hydroxyzine 25 mg p.o. q.4 hours p.r.n. 8. Insulin lispro 2 to 10 units subcutaneous t.i.d. before meals. 9. Metformin 1000 mg p.o. b.i.d. with meals. 10. Ondansetron 4 mg p.o. q.4 hours p.r.n. 11. Pantoprazole 40 mg p.o. daily. 12. Polyethylene glycol 17 g p.o. daily p.r.n. 13. Psyllium daily. 14. Quetiapine 100 mg p.o. q.h.s. ALLERGIES: There is an allergy listed to penicillin. SOCIAL HISTORY: He lives in a home he built in [place]. He quit smoking and alcohol use 10 years ago. He spends approximately half the time taking care of his 93-year-old mother. 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 He has 3 adult children and he has grandchildren. FAMILY HISTORY: Noncontributory for the purpose of this evaluation. REVIEW OF SYSTEMS: He denies cough, dyspnea, pain, fevers, and chills. He is not aware of palpitations. He has return of his appetite, though not full appetite yet. He denies nausea, vomiting, constipation, and diarrhea. He denies dysuria and urinary frequency. Otherwise, a 10-point review of systems is negative. PHYSICAL EXAMINATION: VITAL SIGNS: Blood pressure is 143/89, heart rate is 106 , respiratory rate is 16, oxygen saturation is 95% on room air, temperature is 36.6 degrees centigrade. His weight is 90.7 kg for a body mass index of 27.1. GENERAL: This is a well-nourished, well-developed man, who appears older than his chronologic age cooperative and in no acute distress. HEENT: Extraocular movements are intact. Pupils are equal, round, and reactive to light and are moderately dilated. Mucous membranes are moist. Dentition is in good condition. Airway is uncrowded, Mallampati class 1. NECK: Supple. HEART: Regular rate and rhythm with no murmurs, rubs, or gallops. He is tachycardic. LUNGS: Clear to auscultation bilaterally. ABDOMEN: Soft, nontender, and nondistended with normoactive bowel sounds. EXTREMITIES: No cyanosis, clubbing , or edema. NEUROLOGIC: Alert and oriented x3. Cranial nerves 2 through 12 are grossly intact. There is no focal weakness, and sensation is intact to light touch. LABORATORY DATA: Most recent studies from the hospital this morning: Renal function and liver function were overall within normal limits. He had a slightly low carbon dioxide at 21. He had an elevated fasting glucose at 140. Vitamin B12 was 975, higher than normal, and TSH was normal at 2.46. A urine sodium showed a low sodium at 8. His urine osmolality was 368. On his previous visit, he had mild anemia with a hemoglobin of 12.3 and hematocrit of 38. When he was admitted on 12/27, he had hyponatremia with a sodium of 129 and hypokalemia with a potassium of 3.3. These corrected with hydration and supplementation. ASSESSMENT/RECOMMENDATIONS: 1. Mental health issues pending further evaluation and management per Psychiatry and mental health team. 2. Hypertension with recent low blood pressure, including acute renal insufficiency. His original admission was with hypotension. His creatinine was 3.1. Renal function has returned to normal. Blood pressure is currently higher than optimal, given that he has diabetes and heart disease. Given his recent hypotension and volume depletion, advise continuing monitoring. If he has a persistent elevated blood pressure over several days, will restart blood pressure medications. As he is a diabetic, it would be appropriate to initially restart lisinopril. 3. Diabetes mellitus, type 2. Continue metformin 1000 mg twice daily. He is discharged from the hospital on a sliding scale with lispro insulin. Once his p.o. intake is stabilized and his sliding scale need is established, will initiate scheduled insulin to anticipate high blood sugars rather than reacting with a sliding scale. 4. Dyslipidemia. He has been restarted on atorvastatin, and this is appropriate. 5. Nonischemic cardiomyopathy. Most recent echo showed considerable improvement from his original diagnosis. He is not clinically in heart failure. 6. Tachycardia of unclear etiology. His blood pressure regimen previously included carvedilol. It could be that he is rebounding from beta nile affect , having been stopped. Advise continued monitoring. Initiating carvedilol would be a second step after lisinopril should his blood pressure remain elevated. I see no medical contraindications to this patient's continued stay in the inpatient behavioral health unit or to any psychiatric medications or procedures. Thank you very much for including me in the care of this patient, and please do not hesitate to contact me or the hospitalist service should there be need for further medical evaluation. /[id number]/MODL MTDD
[2016-12-31] MEDS: DOCUSATE SODIUM 100 MG CAP PO SCH (20:04)
[2016-12-31] MEDS: GABAPENTIN 300 MG CAP PO SCH (20:05)
[2016-12-31] MEDS: QUEtiapine FUMARATE 100 MG TAB PO SCH (20:05)
[2016-12-31] MEDS: ACETAMINOPHEN 325 MG TAB PO PRN (21:28)
[2017-01-01] MEDS: hydrOXYzine HCL 25 MG TAB PO PRN (02:12)
[2017-01-01] MEDS: ACETAMINOPHEN 325 MG TAB PO PRN ×4 (02:13→21:34)
[2017-01-01] MEDS: INSULIN LISPRO 100 UNIT/1 ML VIAL STANDARD SC SCH ×3 (07:49→16:40)
[2017-01-01] MEDS: metFORMIN HCL 500 MG TAB PO SCH ×2 (07:51→16:40)
[2017-01-01] MEDS: clonazePAM 1 MG TAB PO SCH ×3 (08:01→21:00)
[2017-01-01] MEDS: ASPIRIN EC 81 MG TAB PO SCH (08:44)
[2017-01-01] MEDS: DOCUSATE SODIUM 100 MG CAP PO SCH ×2 (08:44→20:51)
[2017-01-01] MEDS: PANTOPRAZOLE SODIUM 40 MG TAB PO SCH (08:45)
[2017-01-01] MEDS: ATORVASTATIN CALCIUM 40 MG TAB PO SCH (08:45)
[2017-01-01] MEDS: PSYLLIUM METAMUCIL 1 PKT PO SCH (09:14)
--- NOTE | 2017-01-01 13:21 | SOAPPROG ---
SOAP Progress Note Assessment/Plan: Assessment: * Diabetes mellitus type 2. Used 6 units of sliding scale insulin since yesterday afternoon. Blood sugar in the 170s. Trial of insulin glargine 6 units at HS with goal fasting blood sugar below 120. This is achieved he may not need sliding scale insulin during the day. * History of hypertension, currently with blood pressure slightly elevated but given history of hypotension, will observe blood pressure for several more days before considering medication. 01/01/17 13:19 Subjective: Reviewed blood sugars and discussed glycemic control. Patient is without medical complaints. Objective: Vital Signs Temp Pulse Resp BP Pulse Ox 36.3 C 91 16 134/99 H 98 01/01/17 06:00 01/01/17 06:00 01/01/17 06:00 01/01/17 06:00 01/01/17 06:00 Physical Exam - Physical Exam General Appearance: WD/WN, alert, no apparent distress Respiratory: No respiratory distress, No accessory muscle use Skin: normal color, warm/dry Neuro/Psych: no motor/sensory deficits, alert, normal mood/affect, oriented x 3 ICD10 Worksheet Patient Problems: Problems Problem Status Onset Adverse effects of medication Acute Cardiomyopathy Acute Cyclic vomiting syndrome Acute Dehydration Acute Hypotension Acute Nausea & vomiting Acute Renal insufficiency Acute Supraventricular tachycardia Acute
--- NOTE | 2017-01-01 15:13 | SOAPPROG ---
SOAP Progress Note Assessment/Plan: Assessment: 66 yo man with reported h/o bipolar dx in late teens/early 20's, though has never taken psychotropic meds for any prolonged period of time. He was on [place] and Zoloft in past, but didn't take very long. He has 40+ yr h/o alcohol dependence, claims sobriety for past 10 yrs after dx of alcohol-related nonischemic cardiomyopathy and pacemaker. He uses THC multiple times every day and has done for a very long time. He has also been using at least 3mg of klonopin daily that is prescribed by his PCP at [facility]. He was admitted to inpatient behavioral health on M1 for threatening to shoot himself with shotgun after he left ICU at [facility] b/c his Klonopin dose had been decreased from 3mg QHS to 1mg QHS. 01/01/17 15:08 1. Patient denies any complaints. says he's feeling "great." 2. CCM 3. Anticipate d/c Monday or Monday to stay in [facility] with his MOC. His 2 SOC from [place] will check on him. He told CC yesterday he would like his SOC or BLAISE to remove guns/weapons from his home in [place]. Subjective: Staff report patient felt anxious this AM and was offered klonopin, but he refused, because he said he wanted to get "all that junk" out of his system. He thinks he's been taking "too many meds" over the past several days. Patient said he would try to relax without taking meds and later told staff he was successful at calming himself down. When MD met with patient just before lunch, he was pleasant, calm, relaxed, and said he felt "great." He denied any complaints about sleep or mood. He denied feeling depressed or anxious, and denied any thoughts, plan or intent to hurt himself or anyone else. Dr. Talamantes met with patient and reviewed his FSBS and vitals. His BP was only slightly elevated, and since patient was recently hospitalized for hypotension, Dr. Talamantes recommended monitoring BP for several days without HTN meds. Objective: Vital Signs Temp Pulse Resp BP Pulse Ox 36.3 C 91 16 134/99 H 98 01/01/17 06:00 01/01/17 06:00 01/01/17 06:00 01/01/17 06:00 01/01/17 06:00 MSE: Affect: Euthymic Mood: "Great" TP: Linear, goal-directed TC: Denies AH/ VH, no paranoia, no delusions, no SI/HI Insight/Judgment: Fair - Time Spent With Patient Time Spent With Patient: 20" - Pending Discharge Pending Discharge Within 24 Hours: No Pending Discharge Within 48 Hours: Yes Pending Discharge Date: 01/03/17 (Likely to d/c on Mon or Mon) Pending Discharge Time: 11:00 ICD10 Worksheet Patient Problems: Problems Problem Status Onset Adverse effects of medication Acute Cardiomyopathy Acute Cyclic vomiting syndrome Acute Dehydration Acute Hypotension Acute Nausea & vomiting Acute Renal insufficiency Acute Supraventricular tachycardia Acute
[2017-01-01] MEDS ORDERED: MELATONIN 3 MG TAB PO PRN (16:19)
[2017-01-01] MEDS: GABAPENTIN 300 MG CAP PO SCH (20:51)
[2017-01-01] MEDS: INSULIN GLARGINE 100 UNITS/ML SYRINGE SC SCH (20:51)
[2017-01-01] MEDS: QUEtiapine FUMARATE 100 MG TAB PO SCH (21:00)
[2017-01-02] MEDS: ACETAMINOPHEN 325 MG TAB PO PRN ×2 (06:07→18:43)
[2017-01-02 06:32] VITALS: RESP 14; TEMP 98.2
[2017-01-02] MEDS: ASPIRIN EC 81 MG TAB PO SCH (09:21)
[2017-01-02] MEDS: ATORVASTATIN CALCIUM 40 MG TAB PO SCH ×2 (09:21→10:20)
[2017-01-02] MEDS: DOCUSATE SODIUM 100 MG CAP PO SCH ×2 (09:22→21:00)
[2017-01-02] MEDS: metFORMIN HCL 500 MG TAB PO SCH ×2 (09:22→16:48)
[2017-01-02] MEDS: PANTOPRAZOLE SODIUM 40 MG TAB PO SCH ×2 (09:23→10:32)
[2017-01-02] MEDS: INSULIN LISPRO 100 UNIT/1 ML VIAL STANDARD SC SCH ×3 (09:42→16:46)
[2017-01-02] MEDS: clonazePAM 1 MG TAB PO SCH ×3 (10:20→21:00)
[2017-01-02] MEDS: PSYLLIUM METAMUCIL 1 PKT PO SCH (10:21)
[2017-01-02] MEDS ORDERED: SUMAtriptan 25 MG TAB PO PRN (12:46)
--- NOTE | 2017-01-02 12:52 | SOAPPROG ---
SOAP Progress Note Assessment/Plan: Assessment: Bipolar Disorder type 2, depressed Possible Sedative withdrawal Headache - migraine symptoms Possible mild tardive dyskinesia Patient had SI during medical hospitalization after having migraine symptoms and severe insomnia. Confirmed in PDMP that patient was on clonazepam 3mg/day from PCP. Patient appears euthymic and appropriate and denies SI. Patient declined Clonazepam last night and this AM due to fear of headache. Mild tremor in hands and mild tremor in lower face may be from Klonopin withdrawal. Plan: Discharge tomorrow if mood stable and denying SI Change Klonopin 1mg BID, discussed risk of withdrawal HTN, seizure, delirium if stopped abruptly Continue Seroquel 100mg PO QHS for bipolar depression, patient reports this was recently started Continue Gabapentin 300mg PO QHS for sleep/pain Continue medical medications, glucometers Coordinate discharge planning with siblings Patient reports he can follow up with a psychiatrist at [facility] PRN Tylenol and PRN Imitrex for headache Monitor BP of antihypertensives (discontinued due to hypotension recently) 01/02/17 12:56 01/02/17 12:58 Subjective: Patient reports he was suicidal in medical hospital due to severe headache ( pain behind left eye) and insomnia. Reports taking Clonazepam 3mg QHS but this was reduced to 1mg in medical hospital. Reports some benefit from Gabapentin and Seroquel for sleep. Reports not taking Klonopin for fear of having another headache. Reports no longer feeling suicidal. Reports taking Amitriptyline/ Perphenazine for 30 years, with one overdose for SI 30 years ago. Denies plan to hurt self if discharged, wants to stay with mother (patient is her caregiver along with siblings). Agrees to remove guns from home in [place]. Denies racing thoughts or severe agitation. Denies violent thoughts. Reports past severe depression along with hypomania (elevated mood energy and activity lasting weeks at a time with brief irritability) for >30 years. One past suicide attempt 30 years ago OD on pills. Denies service. Objective: Vital Signs Temp Pulse Resp BP Pulse Ox 36.8 C 80 14 145/77 H 96 01/02/17 06:00 01/02/17 06:00 01/02/17 06:00 01/02/17 06:00 01/02/17 06:00 Alert WM. AIM of lower face. Mild extension tremor. Speech RRR, loud at times. Mood 'alright.' Affect euthymic. Thoughts organized. Denies SI or HI. Denies AH or VH. Denies paranoia. Fair memory but poor detail. Fair insight, appropriate judgment. SLUMS: , 05/29 word recall. PDMP indicates patient has been getting Klonopin 1mg #84/month last filled - Time Spent With Patient Time Spent With Patient: 45 - Pending Discharge Pending Discharge Within 24 Hours: Yes Pending Discharge Date: 01/03/17 Pending Discharge Time: 11:00 ICD10 Worksheet Patient Problems: Problems Problem Status Onset Adverse effects of medication Acute Cardiomyopathy Acute Cyclic vomiting syndrome Acute Dehydration Acute Hypotension Acute Nausea & vomiting Acute Renal insufficiency Acute Supraventricular tachycardia Acute
[2017-01-02] MEDS ORDERED: clonazePAM 1 MG TAB PO ONE (13:00)
[2017-01-02] MEDS: GABAPENTIN 300 MG CAP PO SCH (21:00)
[2017-01-02] MEDS: QUEtiapine FUMARATE 100 MG TAB PO SCH (21:00)
[2017-01-02] MEDS: INSULIN GLARGINE 100 UNITS/ML SYRINGE SC SCH (21:00)
[2017-01-03 06:36] VITALS: BP 107/60; PULSE 92; O2SAT 94
[2017-01-03] MEDS: clonazePAM 1 MG TAB PO SCH (09:19)
[2017-01-03] MEDS: metFORMIN HCL 500 MG TAB PO SCH (09:19)
[2017-01-03] MEDS: DOCUSATE SODIUM 100 MG CAP PO SCH (09:19)
[2017-01-03] MEDS: ATORVASTATIN CALCIUM 40 MG TAB PO SCH (09:20)
[2017-01-03] MEDS: PANTOPRAZOLE SODIUM 40 MG TAB PO SCH (09:20)
[2017-01-03] MEDS: INSULIN LISPRO 100 UNIT/1 ML VIAL STANDARD SC SCH ×2 (09:20→12:28)
[2017-01-03] MEDS: PSYLLIUM METAMUCIL 1 PKT PO SCH (09:20)
[2017-01-03] MEDS: ASPIRIN EC 81 MG TAB PO SCH (09:20)
--- NOTE | 2017-01-03 17:39 | BDS ---
[f rep st] [facility] DISCHARGE SUMMARY DATE OF ADMISSION: 12/31/16 DATE OF DISCHARGE 01/03/17 DISCHARGE DIAGNOSES: 1. Bipolar disorder type II, most recent episode depressed. 2. Insomnia. REASON FOR ADMISSION: This is a 66-year-old white male, who lives alone in [place], [place]. His elderly mother lives in the [place] area, his sister and [id number] live in the area as well. The patient has a long history of depression and bipolar disorder symptoms, and has received psychiatric treatment for over 30 years in the past. He was admitted on December 31, 2016 as a transfer from [facility], after the patient received inpatient medical treatment for several days for hypotension. The patient apparently had been taking 3 mg a day of Klonopin as an outpatient, including Seroquel 100 mg at bedtime from his primary care doctor at [facility]. He was also on multiple antihypertensive medications, but had hypotension and severe lethargy. In the medical hospital, his antihypertensives were discontinued. The patient's Klonopin was reduced from 3 mg at bedtime to 1 mg at bedtime. The patient apparently had severe insomnia and a severe headache, and reported suicidal ideation with thoughts to shoot himself. He was placed on an M1 hold and transferred to the inpatient [facility] hospital over here at [facility]. HOSPITAL COURSE: The patient was admitted. He was continued on his insulin for diabetes, as well as his Protonix for GERD and Metamucil for constipation, and docusate for constipation. He was continued on his Seroquel 100 mg at bedtime. His clonazepam was increased back to 1 mg by mouth 3 times a day after admission, and he was started on Gabapentin 300 mg by mouth at bedtime to help with sleep. The patient was initially on M1 hold, this was converted to voluntary status. The patient reported that he was having depressed mood and suicidal thoughts secondary to insomnia and headache that he had in the medical hospital during his medical treatment for hypotension. On the unit, he said he felt improved but had a mild extension tremor in his hands and mild tremor in his lower face concerning for sedative withdrawal. He was calm, cooperative and pleasant. He endorsed a history of major depressive disorder symptoms, as well as past hypomanic symptoms. He reported he was, in the past, treated with a combination of perphenazine and amitriptyline for approximately 25 years. He reported in the past year he had been taking clonazepam 3 mg at bedtime, along with Seroquel 100 mg at bedtime, from his primary care provider. On the unit, the patient denied further thoughts of suicide. He appeared euthymic, did not appear a danger to himself or others. He was eating well, sleeping well, and able to attend groups. The patient's discharge planning was coordinated with his sister. The patient's sister was notified that the patient had guns in his home that needed to be removed. The patient was agreeable to have these removed from his home as well. The patient was agreeable to see a psychiatrist for followup, in addition to his primary care provider for his multiple medical problems. The patients Klonopin was changed to one mg PO BID due to concern that when the dose was reduced to 1mg he was having withdrawal insomnia and headaches in the medical hospital and a tremor on the behavioral health unit. The patients blood pressure and glucometers were in the normal range on the unit , and the patient denied further headache. CONDITION ON DISCHARGE: An alert white male in no acute distress. He is pleasant and cooperative. He is ambulatory. He had mild abnormal involuntary movements of his lower face that may be mild tardive dyskinesia. His speech is regular rate and rhythm. His thoughts are organized. His mood is "good." His affect is euthymic. He denies any thoughts to hurt himself or others. He denies paranoia or hallucinations. He has fair insight, fair memory. The patient did score 27 out of 30 on the SLUMS test for cognition. DISPOSITION: The patient will be discharged with his sister, and will likely be staying with his elderly mother here in [place] for approximately a week, as he is her primary caregiver. DISCHARGE MEDICATIONS: Lipitor 80 mg p.o. q.a.m., aspirin 81 mg p.o. q.a.m., gabapentin 300 mg p.o. q.hs, Seroquel 100 mg p.o. q.hs, clonazepam 1 mg p.o. twice a day, docusate 100 mg p.o. twice daily, Protonix 40 mg p.o. daily, MiraLAX 1 capsule daily, Lantus insulin 6 units subcu q.hs., metformin 100 mg p.o. twice a day. Patient was given prescriptions for one month for his psychiatric medications. FOLLOWUP: The patient has a followup appointment at [facility] for primary care later this week. The cardiac care unit nurse is outreaching to clarify if they have a psychiatrist on site for followup or not. ADDENDUM: The patient was given extensive information about the risks and benefits of psychiatric medication. He was warned about the risks of tardive dykinesia, weight gain and worsening diabetes with Seroquel, as well as the risk of driving and cognitive impairment with clonazepam, as well as the risk of withdrawal anxiety, withdrawal seizures and delirium if clonazepam was stopped abruptly. /[id number]/MODL MTDD
== END 2017-01-03 13:28 | disposition home or self-care (01) | DRG 885 ==
LOC: BBEH 09:05
PROVIDERS: ADMIT Psychiatry & Neurology Behavioral Neurology & Neuropsychiatry; ATTEND Psychiatry & Neurology Behavioral Neurology & Neuropsychiatry
DX: F31.30 Bipolar disorder, current episode depressed, mild or moderate severity, unspecified (principal); G47.00 Insomnia, unspecified; R51 Headache; I42.9 Cardiomyopathy, unspecified; I48.91 Unspecified atrial fibrillation; E11.9 Type 2 diabetes mellitus without complications; Z79.4 Long term (current) use of insulin; Z87.891 Personal history of nicotine dependence; Z95.810 Presence of automatic (implantable) cardiac defibrillator
CPT/HCPCS: J1815

== ENCOUNTER → 2017-01-09 | Outpatient (CLI) | payer OTHER | LOC: FIMAGING 12:01 | PROVIDERS: ATTEND Family Medicine | DX: M51.36 Other intervertebral disc degeneration, lumbar region (principal); M99.73 Connective tissue and disc stenosis of intervertebral foramina of lumbar region; M50.30 Other cervical disc degeneration, unspecified cervical region; M99.71 Connective tissue and disc stenosis of intervertebral foramina of cervical region; M12.88 Other specific arthropathies, not elsewhere classified, other specified site ==

== ENCOUNTER 2017-03-02 09:56 | Emergency (ER) | payer OTHER ==
--- NOTE | 2017-03-02 10:35 | EDPHY ---
General Narrative: CHIEF COMPLAINT: Constipation of 8 days HISTORY OF PRESENT ILLNESS: Patient complains of constipation for the last 8 days. He says "I haven't been able to get much outta there." He reports that he normally has a bowel movement every day. For the past 2 days he has been able to do so. He has had some clear liquid return after Fleet enema. He has had small bowel movement intermittently. He has minimal pain from this. No fever. No vomiting. No nausea. No bloody stools. He has attempted Fleet enema x2, Fleet suppository, glycerin suppositories, dates and prunes, MiraLax, milk a magnesia and Colace. He says he also has started taking Kratom herbal for chronic back pain. He feels that this may have started the constipation. He says that this has not resolved his complaint. He has no abdominal surgeries. No other associated complaints or modifying factors. REVIEW OF SYSTEMS: Ten systems reviewed and are negative unless otherwise noted in the HPI PCP: Dr. Tate SPECIALISTS: None PAST MEDICAL HISTORY: CHF, type 2 diabetes, bipolar disorder, PTSD, hypertension no longer on medications PAST SURGICAL HISTORY: Cardiac ablation, pacemaker placement, SOCIAL HISTORY: Quit smoking 10 years ago. Quit drinking alcohol 10 years ago. Occasional marijuana use. Currently not working FAMILY HISTORY: Noncontributory EXAMINATION General Appearance: Alert, no distress Head: normocephalic, atraumatic Eyes: Pupils equal and round, no conjunctival pallor or injection ENT, Mouth: Mucous membranes moist. Airway patent Neck: Normal inspection, supple, non-tender Respiratory: Lungs are clear to auscultation. No wheezing, rhonchi or crackles Cardiovascular: Regular rate and rhythm. No murmur Gastrointestinal: Abdomen is soft and nontender. No distention. No tympany. No rigidity. No guarding. Skin: Warm and dry, no rash. No petechiae or purpura Extremities: Nontender, no pedal edema. Range of motion symmetric Psychiatric: Mood and affect normal DIFFERENTIAL DIAGNOSES: Including but not limited to constipation, obstipation, enteritis, colitis MDM: 10:34 a.m. Reports of constipation of 8 days duration despite multiple [id number] medications.. Abdominal exam is benign. I have ordered laboratory studies and CT scan for further examination. He is in no acute distress. Laboratory studies are pending. 11:30 a.m. Laboratory studies negative. CT scan pending. Patient resting comfortably 12:20 p.m. Notified by radiologist Dr. Medeiros. CT scan of the abdomen pelvis discussed. Mild constipation. No other acute findings noted. 12:40 p.m. Patient re-evaluated. He remains comfortable with no abdominal pain. We discussed the CT scan findings. We discussed going home with Leobardo to resolve his constipation. I would also like him to contact his primary care physician to discuss the possible GI referral. I would like him to return to the ER for any abdominal pain, fever, chills. He is comfortable this plan. He will be discharged home stable condition. SUPERVISION: Patient was independently examined, but I discussed the case with my secondary supervising physician Dr. Sepulveda - Diagnostics Imaging Results: Imaging Impressions Abdomen CT 03/02/17 10:34 Impression: 1. Mild hiatal hernia. 2. Uncomplicated cholelithiasis. 3. Mild constipation 4. Stable mild anterior wedge compression fracture L1. Findings discussed with Casey Ruiz PAC at 12:09 hour, 03/02/2017. - History Smoking Status: Former smoker - Objective Vital Signs: Initial Vital Signs Temperature (C) 97.5 F 03/02/17 10:03 Heart Rate 100 03/02/17 10:03 Respiratory Rate 22 H 03/02/17 10:03 Blood Pressure 169/108 H 03/02/17 10:03 O2 Sat (%) 98 03/02/17 10:03 O2 Delivery Mode Room Air Allergies/Adverse Reactions: Penicillins Allergy (Verified 03/02/17 10:01) Home Medications: Medication Instructions Recorded Aspirin [Aspirin 81mg (*)] 81 mg PO DAILY 12/24/16 Psyllium Seed [Metamucil (*)] 2 each PO DAILY pkt 12/31/16 QUEtiapine FUMARATE [Seroquel 100 100 mg PO HS tab 12/31/16 mg (*)] Aspirin EC [Aspirin EC 81 mg (*)] 81 mg PO DAILY tab 01/03/17 Docusate Sodium [Colace 100 MG (*)] 100 mg PO BID cap 01/03/17 Gabapentin [Neurontin 300 MG (*)] 300 mg PO HS #30 cap 01/03/17 Pantoprazole Sodium [Protonix 40mg 40 mg PO DAILY tab 01/03/17 (*)] Polyethylene Glycol 3350 [Miralax 17 gm PO DAILY PRN pkt 01/03/17 17 gm (*)] Psyllium Seed [Metamucil (*)] 1 each PO DAILY pkt 01/03/17 QUEtiapine FUMARATE [Seroquel 100 100 mg PO HS #30 tab 01/03/17 mg (*)] clonazePAM [klonoPIN (*)] 1 mg PO BID #60 tab 01/03/17 Peg 3350/Na Sulf,Bicarb,Cl/KCl 4,000 ml PO AD #1 btl 03/02/17 [Golytely (RX)] Laboratory Results: Laboratory Results 03/02/17 10:51 03/02/17 10:51 03/02/17 03/02/17 03/02/17 10:51 10:51 10:51 WBC 7.64 10^3/uL 10^3/uL (3.80-9.50) RBC 4.95 10^6/uL 10^6/uL (4.40-6.38) Hgb 12.9 g/dL L g/dL (13.7-17.5) POC Hgb Hct 39.6 % L % (40.0-51.0) POC Hct MCV 80.0 fL L fL (81.5-99.8) MCH 26.1 pg L pg (27.9-34.1) MCHC 32.6 g/dL g/dL (32.4-36.7) RDW 15.6 % H % (11.5-15.2) Plt Count 291 10^3/uL 10^3/uL (150-400) MPV 9.2 fL fL (8.7-11.7) Neut % (Auto) 52.8 % % (39.3-74.2) Lymph % (Auto) 30.2 % % (15.0-45.0) Grundy % (Auto) 10.1 % % (4.5-13.0) Eos % (Auto) 4.8 % % (0.6-7.6) Baso % (Auto) 1.2 % % (0.3-1.7) Nucleat RBC Rel Count 0.0 % % (0.0-0.2) Absolute Neuts (auto) 4.03 10^3/uL 10^3/uL (1.70-6.50) Absolute Lymphs (auto) 2.31 10^3/uL 10^3/uL (1.00-3.00) Absolute Monos (auto) 0.77 10^3/uL 10^3/uL (0.30-0.80) Absolute Eos (auto) 0.37 10^3/uL 10^3/uL (0.03-0.40) Absolute Basos (auto) 0.09 10^3/uL 10^3/uL (0.02-0.10) Absolute Nucleated RBC 0.00 10^3/uL 10^3/uL (0-0.01) Immature Gran % 0.9 % % (0.0-1.1) Immature Gran # 0.07 10^3/uL 10^3/uL (0.00-0.10) PT 13.6 SEC SEC (12.0-15.0) INR 1.02 (0.83-1.16) APTT 24.5 SEC SEC (23.0-38.0) POC Sodium Sodium 137 mEq/L mEq/L (134-144) POC Potassium Potassium 5.1 mEq/L mEq/L (3.5-5.2) POC Chloride Chloride 96 mEq/L L mEq/L (97-110) Carbon Dioxide 24 mEq/l mEq/l (22-31) Anion Gap 17 mEq/L H mEq/L (8-16) POC BUN BUN 14 mg/dL mg/dL (7-23) Creatinine 0.8 mg/dL mg/dL (0.7-1.3) POC Creatinine Estimated GFR > 60 Glucose 180 mg/dL H mg/dL (70-100) POC Glucose Calcium 9.7 mg/dL mg/dL (8.5-10.4) Total Bilirubin 0.6 mg/dL mg/dL (0.1-1.4) Conjugated Bilirubin 0.4 mg/dL mg/dL (0.0-0.5) Unconjugated Bilirubin 0.2 mg/dL mg/dL (0.0-1.1) AST 36 IU/L IU/L (17-59) ALT 38 IU/L IU/L (21-72) Alkaline Phosphatase 64 IU/L IU/L (38-126) Total Protein 7.8 g/dL g/dL (6.3-8.2) Albumin 4.2 g/dL g/dL (3.5-5.0) Lipase 131 IU/L IU/L (23-300) 03/02/17 10:48 WBC RBC Hgb POC Hgb 15.0 gm/dL gm/dL (13.7-17.5) Hct POC Hct 44 % % (40-51) MCV MCH MCHC RDW Plt Count MPV Neut % (Auto) Lymph % (Auto) Grundy % (Auto) Eos % (Auto) Baso % (Auto) Nucleat RBC Rel Count Absolute Neuts (auto) Absolute Lymphs (auto) Absolute Monos (auto) Absolute Eos (auto) Absolute Basos (auto) Absolute Nucleated RBC Immature Gran % Immature Gran # PT INR APTT POC Sodium 134 mEq/L mEq/L (134-144) Sodium POC Potassium 4.4 mEq/L mEq/L (3.3-5.0) Potassium POC Chloride 96 mEq/L L mEq/L (97-110) Chloride Carbon Dioxide Anion Gap POC BUN 14 mg/dL mg/dL (7-23) BUN Creatinine POC Creatinine 0.9 mg/dL mg/dL (0.7-1.3) Estimated GFR Glucose POC Glucose 185 mg/dL H mg/dL (70-100) Calcium Total Bilirubin Conjugated Bilirubin Unconjugated Bilirubin AST ALT Alkaline Phosphatase Total Protein Albumin Lipase Point of Care Test Results: 03/02/17 10:48 POC Sodium 134 POC Potassium 4.4 POC Chloride 96 L POC BUN 14 POC Creatinine 0.9 POC Glucose 185 H Departure - Departure Disposition: Home, Routine, Self-Care Clinical Impression: Constipation Qualifiers: Constipation type: unspecified constipation type Qualified Code(s): K59.00 - Constipation, unspecified Condition: Good Instructions: Polyethylene Glycol 3350/Electrolytes (By mouth), Constipation ( ED), High Fiber Diet (ED) Additional Instructions: 1. GoLYTELY as discussed and prescribed 2. Contact primary care physician for outpatient follow-up 3. Return to emergency department for any worsening symptoms, fever, abdominal pain, vomiting 4. Recommend Colace 1 pill [id number] once daily after the constipation resolves Referrals: LUISANA TATE [Primary Care Provider] - As per Instructions Prescriptions: Peg 3350/Na Sulf,Bicarb,Cl/KCl [Golytely (RX)] 4,000 ml PO AD #1 btl
[2017-03-02 11:12] LABS: APTT 24.5 SEC (23.0-38.0); INR 1.02 (0.83-1.16); PROTIME(PATIENT) 13.6 SEC (12.0-15.0)
[2017-03-02 11:21] LABS: % IMMATURE GRANULYOCYTES 0.9 % (0.0-1.1); ABSOLUTE IMMATURE GRANULOCYTES 0.07 10^3/uL (0.00-0.10); ADD DIFF? NO; ADD MORPH? NO; ADD SCAN? NO; ATYPICAL LYMPHOCYTE FLAG 10 (0-99); FRAGMENT RBC FLAG 0 (0-99); HEMATOCRIT 39.6 % (40.0-51.0); HEMOGLOBIN 12.9 g/dL (13.7-17.5); LEFT SHIFT FLG 0 (0-99); LIPEMIA HEMOLYSIS FLAG 80 (0-99); MEAN CELL HEMOGLOBIN 26.1 pg (27.9-34.1); MEAN CELL HEMOGLOBIN CONCENTR. 32.6 g/dL (32.4-36.7); MEAN PLATELET VOLUME 9.2 fL (8.7-11.7); PLATELET CLUMPS FLAG 0 (0-99); PLATELET COUNT 291 10^3/uL (150-400); RED BLOOD CELL COUNT 4.95 10^6/uL (4.40-6.38); RED CELL DISTRIBUTION WIDTH 15.6 % (11.5-15.2)
[2017-03-02] MEDS ORDERED: IOPAMIDOL (ISOVUE-300) 100 ML BTL ONE (11:28)
[2017-03-02 11:33] LABS: ALANINE AMINOTRANSFERASE 38 IU/L (21-72); ALBUMIN 4.2 g/dL (3.5-5.0); ALKALINE PHOSPHATASE 64 IU/L (38-126); ANION GAP 17 mEq/L (8-16); ASPARTATE AMINOTRANSFERASE 36 IU/L (17-59); BILIRUBIN,TOTAL 0.6 mg/dL (0.1-1.4); BILIRUBIN-CONJUGATED 0.4 mg/dL (0.0-0.5); BILIRUBIN-UNCONJUGATED 0.2 mg/dL (0.0-1.1); CALCIUM 9.7 mg/dL (8.5-10.4); CARBON DIOXIDE 24 mEq/l (22-31); CHLORIDE 96 mEq/L (97-110); CREATININE 0.8 mg/dL (0.7-1.3); GLOMERULAR FILTRATION RATE > 60; GLUCOSE 180 mg/dL (70-100); POTASSIUM 5.1 mEq/L (3.5-5.2); SODIUM 137 mEq/L (134-144); TOTAL PROTEIN 7.8 g/dL (6.3-8.2)
[2017-03-02 13:09] VITALS: BP 156/90; PULSE 94; RESP 18; TEMP 97.9; O2SAT 94
== END 2017-03-02 13:15 | disposition home or self-care (01) ==
DX: K59.00 Constipation, unspecified (principal); E11.9 Type 2 diabetes mellitus without complications; I11.0 Hypertensive heart disease with heart failure; I50.9 Heart failure, unspecified; Z79.82 Long term (current) use of aspirin; Z87.891 Personal history of nicotine dependence
CPT/HCPCS: 74177; 99285; Q9967; 82947-QW

== ENCOUNTER 2017-03-16 15:38 | Emergency (ER) | payer OTHER ==
[2017-03-16 15:55] VITALS: BP 139/87; PULSE 100; RESP 16; TEMP 97.5; O2SAT 95
--- NOTE | 2017-03-16 15:58 | EDPHY ---
H & P Time Seen by Provider: 03/16/17 15:46 HPI/ROS: CHIEF COMPLAINT: Lump under skin HISTORY OF PRESENT ILLNESS: The patient is a 67-year-old man with history of diabetes. Over the last month he has noticed a firm region and his left abdominal skin at the site where he typically gives himself insulin injections. It is not tender. It is not erythematous. It is not been draining. He came to the emergency department today to ask what it was. He was concerned that maybe is a hernia. REVIEW OF SYSTEMS: Constitutional: denies: chills, fever, recent illness, recent injury EENTM: denies: blurred vision, double vision, nose congestion Respiratory: denies: cough, shortness of breath Cardiac: denies: chest pain, irregular heart rate, lightheadedness, palpitations Gastrointestinal/Abdominal: denies: abdominal pain, diarrhea, nausea, vomiting, blood streaked stools Genitourinary: denies: dysuria, frequency, hematuria, pain Musculoskeletal: denies: joint pain, muscle pain Skin: See HPI Neurological: denies: headache, numbness, paresthesia, tingling, dizziness, weakness Hematologic/Lymphatic: denies: blood clots, easy bleeding, easy bruising Immunologic/allergic: denies: HIV/AIDS, transplant EXAM: GENERAL: Well-appearing, well-nourished and in no acute distress. HEAD: Atraumatic, normocephalic. EYES: Pupils equal round and reactive to light, extraocular movements intact, sclera anicteric, conjunctiva are normal. ENT: TMs normal, nares patent, oropharynx clear without exudates. Moist mucous membranes. NECK: Normal range of motion, supple without lymphadenopathy or JVD. LUNGS: Breath sounds clear to auscultation bilaterally and equal. No wheezes rales or rhonchi. HEART: Regular rate and rhythm without murmurs, rubs or gallops. ABDOMEN: Soft, nontender, normoactive bowel sounds. No guarding, no rebound. No masses appreciated. BACK: No CVA tenderness, no spinal tenderness, step-offs or deformities EXTREMITIES: Normal range of motion, no pitting or edema. No clubbing or cyanosis. NEUROLOGICAL: Cranial nerves II through XII grossly intact. Normal speech, normal gait. 5/5 strength, normal movement in all extremities, normal sensation PSYCH: Normal mood, normal affect. SKIN: Patient has a firm nontender lump at the site of his injection chest and the skin to the left of his umbilicus. There is old bruising present. No erythema. No drainage. It is superficial to the peritoneum. No hernia on exam. Source: Patient Exam Limitations: No limitations - Personal History Tetanus Vaccine Date: < 10 YEARS - Medical/Surgical History Hx Asthma: No Hx Chronic Respiratory Disease: No Hx Diabetes: Yes Hx Cardiac Disease: Yes Hx Renal Disease: No Hx Cirrhosis: No Hx Alcoholism: Yes Hx HIV/AIDS: No Hx Splenectomy or Spleen Trauma: No Other PMH: 1. atrial tachycardia, ablation, afib 2. pacemaker/defibrillator, 3. bipolar 4. CHF 5. panic attacks, anxiety 6. high cholesterol 7. cardiomyopathy, 8. gerd 9.DIABETES 10. PTSD. - Family History Significant Family History: No pertinent family hx - Social History Smoking Status: Former smoker Alcohol Use: Sober Drug Use: None Constitutional: Initial Vital Signs Temperature (C) 36.4 C 03/16/17 15:53 Heart Rate 100 03/16/17 15:53 Respiratory Rate 16 03/16/17 15:53 Blood Pressure 139/87 H 03/16/17 15:53 O2 Sat (%) 95 03/16/17 15:53 O2 Delivery Mode Room Air Allergies/Adverse Reactions: Penicillins Allergy (Verified 03/16/17 15:44) Home Medications: Medication Instructions Recorded Aspirin [Aspirin 81mg (*)] 81 mg PO DAILY 12/24/16 Docusate Sodium [Colace 100 MG (*)] 100 mg PO BID cap 01/03/17 Gabapentin [Neurontin 300 MG (*)] 300 mg PO HS #30 cap 01/03/17 Polyethylene Glycol 3350 [Miralax 17 gm PO DAILY PRN pkt 01/03/17 17 gm (*)] Psyllium Seed [Metamucil (*)] 1 each PO DAILY pkt 01/03/17 QUEtiapine FUMARATE [Seroquel 100 100 mg PO HS #30 tab 01/03/17 mg (*)] clonazePAM [klonoPIN (*)] 1 mg PO BID #60 tab 01/03/17 Peg 3350/Na Sulf,Bicarb,Cl/KCl 4,000 ml PO AD #1 btl 03/02/17 [Golytely (RX)] HumuLIN N 03/16/17 Medical Decision Making ED Course/Re-evaluation: The patient has a hematoma versus calcification at the site of his frequent insulin injections. Her there is nothing to do acutely for this. I recommended he began using different injection sites and follow up with his primary doctor and possibly surgery if revision is desired. We also discussed signs of infection and indications for returning to the emergency department. We also discussed using heating pad. He is happy with this. Differential Diagnosis: Partial list of the Differential diagnosis considered include but were not limited to; calcified hematoma, contusion and although unlikely based on the history and physical exam, I also considered abscess, hernia, lymphoma. I discussed these differential diagnoses and the plan with the patient as well as the usual and expected course. The patient understands that the diagnosis is provisional and that in medicine we are not always correct and that further workup is often warranted. Usual and customary warnings were given. All of the patient's questions were answered. The patient was instructed to return to the emergency department should the symptoms at all worsen or return, otherwise to followup with the physician as we discussed. Departure - Departure Disposition: Home, Routine, Self-Care Clinical Impression: Hematoma Condition: Fair Instructions: Hematoma (ED) Referrals: LUISANA CHATTERJEE [Primary Care Provider] - As per Instructions Jose Trammell MD [Medical Doctor] - As per Instructions
== END 2017-03-16 16:08 | disposition home or self-care (01) ==
LOC: CED 15:38
DX: M79.81 Nontraumatic hematoma of soft tissue (principal); E11.9 Type 2 diabetes mellitus without complications; I50.9 Heart failure, unspecified; Z79.4 Long term (current) use of insulin; Z79.82 Long term (current) use of aspirin; Z87.891 Personal history of nicotine dependence; Z95.0 Presence of cardiac pacemaker

== ENCOUNTER 2017-03-26 15:26 | Emergency (ER) | payer OTHER ==
[2017-03-26 15:35] VITALS: BP 159/128; PULSE 97; RESP 16; TEMP 98.2; O2SAT 98
--- NOTE | 2017-03-26 16:34 | EDPHY ---
H & P HPI/ROS: CHIEF COMPLAINT: Multiple History by patient HISTORY OF PRESENT ILLNESS: 67-year-old man with history of head injury and memory difficulties and diabetes presents stating that he would like to know what's going on with the rash on his legs that he has had for several years, to have his kidneys checked and to have the inside of his intestines checked. Patient states that after he broke his back several months ago he began taking Kratom which caused severe constipation and he has been trying to recover from that ever since. Patient states that he has intermittent left lower quadrant pain. He had a normal bowel movement today x2. He denies any fever chills. He denies any nausea or vomiting. He has been able to eat without any difficulty. He is not gaining or losing any weight but he states that sometimes his abdomen feels swollen. He has seen a principle software engineer for the symptoms. He was seen here several days ago for concerns about a lesion on his abdominal wall and seen at the beginning of this month at [facility] for constipation. Patient is also concerned about his prostate and that his stream is not as strong as it has been and has been decreasing over several years. Patient has an appointment pending with his primary care physician next Monday. REVIEW OF SYSTEMS: As in HPI, and all other systems reviewed and are negative Smoking Status: Former smoker Physical Exam: General Appearance: Alert, nontoxic-appearing. Head: normocephalic, atraumatic Eyes: Pupils equal and round, reactive to light, no pallor or injection. Mouth: Mucous membranes moist. Respiratory: Normal, effort, lungs are clear to auscultation. No wheezes, rales or rhonchi. Cardiovascular: Regular rate and rhythm. S1, S2, no murmurs, gallops or rubs appreciated Gastrointestinal: Abdomen is soft and nontender, no masses, bowel sounds normal. Back: No CVA tenderness, no bony tenderness Neurological: Awake, alert and oriented x 3, no pronator drift, normal gait, no pronator drift Skin: Warm and dry, excoriations on bilateral ankles Musculoskeletal: No deformities or tenderness. Extremities: full range of motion, no edema, DP2+ bilat Psychiatric: Patient has normal affect, there is no agitation. Constitutional: Initial Vital Signs Temperature (C) 36.8 C 03/26/17 15:30 Heart Rate 97 03/26/17 15:30 Respiratory Rate 16 03/26/17 15:30 Blood Pressure 159/128 H 03/26/17 15:30 O2 Sat (%) 98 03/26/17 15:30 O2 Delivery Mode Room Air Allergies/Adverse Reactions: Penicillins Allergy (Verified 03/26/17 15:35) Home Medications: Medication Instructions Recorded Aspirin [Aspirin 81mg (*)] 81 mg PO DAILY 12/24/16 Docusate Sodium [Colace 100 MG (*)] 100 mg PO BID cap 01/03/17 Gabapentin [Neurontin 300 MG (*)] 300 mg PO HS #30 cap 01/03/17 Polyethylene Glycol 3350 [Miralax 17 gm PO DAILY PRN pkt 01/03/17 17 gm (*)] QUEtiapine FUMARATE [Seroquel 100 100 mg PO HS #30 tab 01/03/17 mg (*)] clonazePAM [klonoPIN (*)] 1 mg PO BID #60 tab 01/03/17 HumuLIN N 03/16/17 MDM/Departure - [facility] ED Course/Re-evaluation: 67-year-old man presents with a litany of complaints all of which are chronic. Patient had an extensive workup here 20 days ago including a normal CT scan of the abdomen pelvis and normal labs including renal function. I reviewed these with the patient and gave him reassurance about this. There are no signs of any acute systemic toxicity today. His chronic rash on his ankles appears to be potentially contact dermatitis versus excoriations. Patient is referred back to his primary care physician. - Depart Disposition: Home, Routine, Self-Care Clinical Impression: Dermatitis Constipation Qualifiers: Constipation type: other constipation type Qualified Code(s): K59.09 - Other constipation Condition: Good Instructions: Constipation (ED) Additional Instructions: You were seen by Dr. Araseli Moraes today. You had a normal CT scan of your abdomen and pelvis and normal blood work including test of your kidney function on March 02. Please follow-up with your primary care physician as scheduled and discuss her concerns about your prostate and your skin rash with her. Continue to take your probiotics and other medications as prescribed. Drink plenty of fluids. Return for any worsening or new concerns. Referrals: LUISANA CHATTERJEE [Primary Care Provider] - As per Instructions
== END 2017-03-26 17:08 | disposition home or self-care (01) ==
LOC: CED 15:26
DX: L30.9 Dermatitis, unspecified (principal); K59.09 Other constipation; E11.9 Type 2 diabetes mellitus without complications; Z79.82 Long term (current) use of aspirin; Z79.4 Long term (current) use of insulin; Z87.891 Personal history of nicotine dependence
CPT/HCPCS: 81003-PO

== ENCOUNTER 2017-04-09 10:38 | Emergency (ER) | payer OTHER ==
[2017-04-09 10:49] VITALS: TEMP 97.9; O2SAT 95
--- NOTE | 2017-04-09 11:03 | EDPHY ---
H & P Time Seen by Provider: 04/09/17 10:48 HPI/ROS: Chief complaint. Coughing pink sputum HPI. 67-year-old male presents emergency department with complaint of coughing some pinkish sputum for 4 days after breathing diff rust fumes from his car which she says has a toxic smell. No nosebleed or sore throat. He tells me he is not sure if it is coming from his lungs or his stomach. He brings in the gauze the has a pinkish tinge to it. No fever. Slight nausea. No shortness of breath. No abdominal pain. ROS Constitutional. no fever/chills, no weakness Eyes. no problems with vision ENT. no sore throat, no nasal drainage Cardiovascular. no chest pain Respiratory. No shortness of breath and apparent cough with some reddish sputum Abdominal. no abdominal pain, no nausea/vomiting, no diarrhea . no problems urinating MS. no calf pain/swelling, no neck/back pain, no joint pain Skin. no rash Lymph. no swollen glands Neuro. no headache, no dizziness, no difficulty walking or with speech Past Medical/Surgical History: Past medical history seen for atrial tachycardia and ablation. Atrial fibrillation. Pacer/defibrillator. Bipolar illness, congestive heart failure, dyslipidemia, anxiety, cardiomyopathy, GERD, diabetes, PTSD Social History: Single, nonsmoker, no alcohol Smoking Status: Former smoker Physical Exam: General Appearance: Alert well-developed male no distress vital signs are stable Eyes: Pupils equal and round no pallor or injection. ENT, nose and pharynx without evidence of bleeding Respiratory: There are no retractions, lungs are clear to auscultation. Cardiovascular: Regular rate and rhythm. Gastrointestinal: Abdomen is soft and nontender, no masses, bowel sounds normal. Neurological: Awake and alert, sensory and motor exams grossly normal. Skin: Warm and dry, no rashes. Musculoskeletal: Neck is supple nontender. Extremities symmetrical, full range of motion. Psychiatric: Patient is oriented X 3, there is no agitation. Constitutional: Initial Vital Signs Temperature (C) 36.6 C 04/09/17 10:46 Heart Rate 99 04/09/17 10:46 Respiratory Rate 18 04/09/17 10:46 Blood Pressure 162/102 H 04/09/17 10:46 O2 Sat (%) 95 04/09/17 10:46 O2 Delivery Mode Room Air Allergies/Adverse Reactions: Penicillins Allergy (Verified 04/09/17 10:49) Pt reports rxn as child- unsure of rxn Home Medications: Medication Instructions Recorded Aspirin [Aspirin 81mg (*)] 12/24/16 HumuLIN N 03/16/17 Docusate Sodium [Colace 100 MG (*)] 04/09/17 Gabapentin [Neurontin 300 MG (*)] 04/09/17 Polyethylene Glycol 3350 [Miralax 04/09/17 17 gm (*)] QUEtiapine FUMARATE [Seroquel 100 04/09/17 mg (*)] clonazePAM [klonoPIN (*)] 04/09/17 Medical Decision Making - Diagnostics Imaging Results: Chest x-ray reviewed by me shows no evidence for pneumonia or significant bronchitis. No source for bleeding is visualized ED Course/Re-evaluation: Re-evaluation at 11:30 a.m.. Patient is stable. On further questioning the patient feels that he gets this pinkish sputum when he is actually clearing his throat. He is speaking in full sentences. No stridor Differential Diagnosis: Likely this is bronchitis or irritation of throat possibly secondary to fumes. No evidence of respiratory distress or abdominal pain suggesting peptic ulcer disease. Patient and I discussed treatment plan including criteria for return importance of follow-up and further evaluation. He expresses understanding and agreement Departure - Departure Disposition: Home, Routine, Self-Care Clinical Impression: Hemoptysis Condition: Good Instructions: Hemoptysis (ED) Additional Instructions: Try to get trocar fixed to avoid the fumes. Possibly drive with the window crack to vent the fumes until you get it fixed. Return for worsening breathing , further worsening bleeding. Recheck in 2-3 days if not improving Referrals: LUISANA CHATTERJEE [Primary Care Provider] - 2-3 days, if not improved
[2017-04-09 12:05] VITALS: BP 165/107; PULSE 92; RESP 16
== END 2017-04-09 12:00 | disposition home or self-care (01) ==
LOC: CED 10:38
DX: R04.2 Hemoptysis (principal); I50.9 Heart failure, unspecified; Z87.891 Personal history of nicotine dependence; Z79.82 Long term (current) use of aspirin
CPT/HCPCS: 71046-PO

== ENCOUNTER 2017-06-17 10:28 | Emergency (ER) | payer OTHER ==
[2017-06-17 11:04] VITALS: BP 171/116; PULSE 94; RESP 18; TEMP 97.3; O2SAT 97
--- NOTE | 2017-06-17 11:28 | EDPHY ---
H & P Time Seen by Provider: 06/17/17 10:30 HPI/ROS: CHIEF COMPLAINT: Neck pain HISTORY OF PRESENT ILLNESS: Patient tells me he had a fall the year and half ago which he described as"bad". He says it has been"quite a brown"since this fall and involve for compression fractures he thinks in the lumbar region. He has seen Neurosurgery. He has had recent CT scan of the neck. He is unable to get MRI due to pacemaker. He states he was doing physical therapy until about a month ago and that was helpful. He denies any new injuries. He says over the last month neck pain has resumed and is"pure hell". He denies numbness, tingling, weakness. No dysuria, incontinence. He is using muscle relaxers and diclofenac. Has used icy Hot and CBD oral with some relief. REVIEW OF SYSTEMS: Respiratory: No cough, no dyspnea. Cardiovascular: No chest pain, no palpitations. Gastrointestinal: No vomiting, no abdominal pain. Musculoskeletal: Neck pain as per HPI. Denies other back pain. No new trauma. Contents of 10 point review of systems otherwise negative except for what is mentioned in HPI. General Appearance: Alert and no distress. Eyes: Pupils equal and round no injection. Respiratory: Chest is nontender, lungs are clear to auscultation. Cardiac: regular rate and rhythm. Musculoskeletal: Neck is supple and palpable tenderness to suboccipital region and paraspinal muscles.. Extremities have full range of motion and are nontender. Normal strength and sensation in upper extremities in flexion and extension. Normal muscle tone. Skin: No rashes or lesions. Neurologic: Patient is awake, alert, cranial nerves intact. Extremity exam as above. Normal gait. History of insulin-dependent diabetes, CHF, cardiomegaly, atrial fibrillation, bipolar, PTSD. Surgeries include pacemaker placement. Patient previous smoker no current tobacco. DIFFERENTIAL DIAGNOSIS: After history and physical exam differential diagnosis was considered for spinal stenosis, chronic neck pain, nerve impingement. After evaluation suspect continued chronic neck pain with no signs of new injury , neurologic dysfunction, or drug-seeking behavior. Recommended resume physical therapy and follow up with both primary care and neuro surgery as indicated. Smoking Status: Former smoker Constitutional: Initial Vital Signs Temperature (C) 36.3 C 06/17/17 10:34 Heart Rate 94 06/17/17 10:34 Respiratory Rate 18 06/17/17 10:34 Blood Pressure 171/116 H 06/17/17 10:34 O2 Sat (%) 97 06/17/17 10:34 O2 Delivery Mode Room Air Allergies/Adverse Reactions: Penicillins Allergy (Verified 06/17/17 10:34) Pt reports rxn as child- unsure of rxn Home Medications: Medication Instructions Recorded Aspirin [Aspirin 81mg (*)] 12/24/16 HumuLIN N 03/16/17 Docusate Sodium [Colace 100 MG (*)] 04/09/17 Gabapentin [Neurontin 300 MG (*)] 04/09/17 Polyethylene Glycol 3350 [Miralax 04/09/17 17 gm (*)] QUEtiapine FUMARATE [Seroquel 100 04/09/17 mg (*)] clonazePAM [klonoPIN (*)] 04/09/17 Medical Decision Making - Diagnostics Imaging Results: Reviewed previous CT scan of the cervical spine ED Course/Re-evaluation: After exam, patient reassured that no evidence of impending neurologic deficits or indication for neurosurgical evaluation at this time. Discussed multiple methods to alleviate and deal with the pain. Will pursue physical therapy on Monday. Ambulatory at discharge. Departure - Departure Disposition: Home, Routine, Self-Care Clinical Impression: Neck pain of over 3 months duration Condition: Good Instructions: Chronic Neck Pain (DC) Additional Instructions: Use ice and heat as discussed. Also resume physical therapy, go there directly or see your primary care physician. Referrals: LUISANA CHATTERJEE [Primary Care Provider] - As per Instructions
== END 2017-06-17 11:33 | disposition home or self-care (01) ==
LOC: CED 10:28
DX: M54.2 Cervicalgia (principal); E11.9 Type 2 diabetes mellitus without complications; I50.9 Heart failure, unspecified; Z79.4 Long term (current) use of insulin; Z79.82 Long term (current) use of aspirin; Z87.891 Personal history of nicotine dependence; Z95.0 Presence of cardiac pacemaker

== ENCOUNTER 2017-08-06 08:24 | Emergency (ER) | payer OTHER ==
[2017-08-06 08:29] VITALS: BP 143/96
--- NOTE | 2017-08-06 09:06 | EDPHY ---
H & P Time Seen by Provider: 08/06/17 08:42 HPI/ROS: CHIEF COMPLAINT: Right low back pain, neck pain HISTORY OF PRESENT ILLNESS: 67-year-old male presents to the emergency department with ongoing neck and back pain. Patient tells me that he had a fall 2 years ago where he fell approximately "9 ft" and heard a bunch of "cracking" in his back. He sustained compression fractures to L1 through L4. He has been doing his physical therapy exercises. He saw a neurosurgeon, Dr. Deras, however he did not like his "bedside manner"and is waiting to see the "female doctor in the office". He has had ongoing pain in his neck and back since the fall. He is unable to have an MRI because he has a pacemaker. He has had multiple CT scans of his cervical, thoracic and lumbar spine. He denies footdrop. Denies bowel or bladder incontinence. He does complain of some numbness in his right leg specifically his right thigh. He does not feel weak in his right leg. He states "I just can't take the pain anymore". Denies chest pain, difficulty breathing. Patient denies any new trauma or fall. REVIEW OF SYSTEMS: Constitutional: No fever, no chills. Eyes: No double or blurry vision. ENT: No sore throat. Respiratory: No cough, no shortness of breath. Cardiac: No chest pain. Gastrointestinal: No abdominal pain, vomiting or diarrhea. Genitourinary: No dysuria. Musculoskeletal: Neck, back pain as above. Skin: No rashes. Neurological: No headache. Past Medical/Surgical History: Atrial tachycardia with ablation, atrial fibrillation, pacemaker defibrillator implanted, bipolar, CHF, panic attacks, dyslipidemia, cardiomyopathy, GERD, type 2 diabetic on insulin, PTSD Social History: Single and lives with his 93-year-old mother Smoking Status: Former smoker Physical Exam: General Appearance: Alert, no distress. Eyes: Pupils equal and round. Extraocular motions are all intact. ENT: Mouth: Mucous membranes moist. Respiratory: No wheezing, rhonchi, or rales, lungs are clear to auscultation. Cardiovascular: Regular rate and rhythm. Gastrointestinal: Abdomen is soft and nontender, no masses, no rebound or guarding, bowel sounds normal. Neurological: Alert and oriented x 3, cranial nerves II through XII grossly intact Skin: Warm and dry, no rashes. Musculoskeletal: Nontender to palpate along the cervical, thoracic or lumbar spine. Neck is supple. Extremities: Full range of motion and no peripheral edema. Normal gait. Reflexes are 2+ and equal for the upper and lower extremities bilaterally. Radial, median, and ulnar nerves are all intact. Psychiatric: Patient is oriented X 3, there is no agitation. Constitutional: Initial Vital Signs Temperature (C) 36.6 C 08/06/17 08:27 Heart Rate 106 H 08/06/17 08:27 Respiratory Rate 19 08/06/17 08:27 Blood Pressure 143/96 H 08/06/17 08:27 O2 Sat (%) 96 08/06/17 08:27 O2 Delivery Mode Room Air Allergies/Adverse Reactions: Penicillins Allergy (Verified 08/06/17 08:26) Pt reports rxn as child- unsure of rxn Home Medications: Medication Instructions Recorded Aspirin [Aspirin 81mg (*)] 12/24/16 HumuLIN N 03/16/17 Docusate Sodium [Colace 100 MG (*)] 04/09/17 Gabapentin [Neurontin 300 MG (*)] 04/09/17 Polyethylene Glycol 3350 [Miralax 04/09/17 17 gm (*)] QUEtiapine FUMARATE [Seroquel 100 04/09/17 mg (*)] Cyclobenzaprine [Flexeril] 10 mg PO TIDPRN PRN #12 tab 08/06/17 Medical Decision Making ED Course/Re-evaluation: 67-year-old male presents to the emergency department with chronic neck and back pain. The patient has no focal neurologic findings. He has no weakness on examination. His reflexes are symmetrical. He has radial, median, and ulnar nerves are all intact. I do not think emergent imaging studies are indicated. The patient was given prescription for Flexeril, muscle relaxer, which she has used in the past with good results. I also encouraged him to try lidocaine patches and remove these after 12 hr to see if this may also help with the pain. He wanted a referral to a neurosurgeon. He was instructed to return to the emergency department if he developed weakness, increasing pain, or any other concerns. He was comfortable with this plan. Differential Diagnosis: Back pain including but not limited to muscular pain, herniated disc, spine fracture, intra-abdominal causes and urinary tract infection. Departure - Departure Disposition: Home, Routine, Self-Care Clinical Impression: Chronic neck pain Chronic back pain Qualifiers: Back pain location: low back pain Back pain laterality: right Sciatica presence : without sciatica Qualified Code(s): M54.5 - Low back pain Condition: Good Instructions: Chronic Back Pain (ED), Chronic Neck Pain (DC) Additional Instructions: Flexeril as needed for muscular spasms. You may also try [id number] topical lidocaine patches especially to your right low back or you having acute pain. Continue Neurontin as prescribed. Return if he developed weakness in your lower legs or in your arms, you developed increasing pain, or any other concerns. You should have close follow-up with Neurosurgery as discussed. Referrals: Peggy Robertson DO [Doctor of Osteopathy] - 2-3 days without fail Prescriptions: Cyclobenzaprine [Flexeril] 10 mg PO TIDPRN PRN #12 tab PRN Reason: Spasms
== END 2017-08-06 09:20 | disposition home or self-care (01) ==
DX: M54.2 Cervicalgia (principal); M54.5 Low back pain; G89.29 Other chronic pain; I50.9 Heart failure, unspecified; E11.9 Type 2 diabetes mellitus without complications; Z79.4 Long term (current) use of insulin; Z79.82 Long term (current) use of aspirin; Z87.891 Personal history of nicotine dependence; Z95.0 Presence of cardiac pacemaker

== ENCOUNTER 2017-11-11 | Emergency (ER) | payer OTHER | END 2017-11-11 13:19 | disposition home or self-care (01) | DX: J18.9 Pneumonia, unspecified organism (principal); Z87.891 Personal history of nicotine dependence | CPT/HCPCS: 71046; 93005; 96365; 99285; J0696; 80048-PO; 84484-PO ==

== ENCOUNTER 2017-11-18 08:31 | Inpatient (IN) | payer OTHER ==
--- NOTE | 2017-11-18 08:59 | EDPHY ---
H & P Stated Complaint: PT. states took last dose of meds this am, states pcp f/u is Monday Time Seen by Provider: 11/18/17 08:41 HPI/ROS: CHIEF COMPLAINT: Shortness of breath HISTORY OF PRESENT ILLNESS: Patient is a 67-year-old man with a history of diastolic heart failure, alcoholism, anxiety, bipolar, atrial fibrillation post 2 ablations and pacemaker. He comes to the emergency department complaining of shortness of breath for the last couple of weeks. It is particularly bad when he lays flat. He states that he wakes up each morning in a panic and takes about 30 min of being upright before he feels like he can breathe better. He was seen here 1 month ago and had a pneumonia diagnosed on CT scan. He was treated with azithromycin. He states that he felt slightly better but then his symptoms returned. He has seen here again a week ago and initially felt to have pneumonia and treated with doxycycline and inhalers. Then later he received a call back stating that his BNP was elevated and he was also started on Lasix daily. The patient states that yesterday he took his last dose of doxycycline and Lasix and he is not feeling any better. He states that he is currently asymptomatic because he has been sitting up during the drive here but that each morning he wakes up short of breath. No lower extremity edema. No travel. No fever. Mild cough productive of yellow sputum. His last echo was a year ago and his ejection fraction was 50%. Severity: Moderate Modifying factors: Lying down REVIEW OF SYSTEMS: Constitutional: denies: chills, fever, recent illness, recent injury EENTM: denies: blurred vision, double vision, nose congestion Respiratory: See HPI Cardiac: denies: chest pain, irregular heart rate, lightheadedness, palpitations Gastrointestinal/Abdominal: denies: abdominal pain, diarrhea, nausea, vomiting, blood streaked stools Genitourinary: denies: dysuria, frequency, hematuria, pain Musculoskeletal: denies: joint pain, muscle pain Skin: denies: lesions, rash, jaundice, bruising Neurological: denies: headache, numbness, paresthesia, tingling, dizziness, weakness Hematologic/Lymphatic: denies: blood clots, easy bleeding, easy bruising Immunologic/allergic: denies: HIV/AIDS, transplant EXAM: GENERAL: Well-appearing, well-nourished and in no acute distress. HEAD: Atraumatic, normocephalic. EYES: Pupils equal round and reactive to light, extraocular movements intact, sclera anicteric, conjunctiva are normal. ENT: TMs normal, nares patent, oropharynx clear without exudates. Moist mucous membranes. NECK: Normal range of motion, supple without lymphadenopathy or JVD. LUNGS: Breath sounds clear to auscultation bilaterally and equal. No wheezes rales or rhonchi. HEART: Regular rate and rhythm without murmurs, rubs or gallops. ABDOMEN: Soft, nontender, normoactive bowel sounds. No guarding, no rebound. No masses appreciated. BACK: No CVA tenderness, no spinal tenderness, step-offs or deformities EXTREMITIES: Normal range of motion, no pitting or edema. No clubbing or cyanosis. NEUROLOGICAL: Cranial nerves II through XII grossly intact. Normal speech, normal gait. 5/5 strength, normal movement in all extremities, normal sensation , normal reflexes PSYCH: Normal mood, normal affect. SKIN: Warm, dry, normal turgor, no visible rashes or lesions. Source: Patient Exam Limitations: No limitations - Personal History Tetanus Vaccine Date: within 10 YEARS - Medical/Surgical History Hx Asthma: No Hx Chronic Respiratory Disease: No Hx Diabetes: Yes Hx Cardiac Disease: Yes Hx Renal Disease: No Hx Cirrhosis: No Hx Alcoholism: Yes Hx HIV/AIDS: No Hx Splenectomy or Spleen Trauma: No Other PMH: 1. atrial tachycardia, ablation, afib 2. pacemaker/defibrillator, 3. bipolar 4. CHF 5. panic attacks, anxiety 6. high cholesterol 7. cardiomyopathy, 8. gerd 9.DIABETES 10. PTSD. - Family History Significant Family History: No pertinent family hx - Social History Smoking Status: Former smoker Alcohol Use: Heavy Drug Use: None Constitutional: Initial Vital Signs Temperature (C) 36.3 C 11/18/17 08:38 Heart Rate 93 11/18/17 08:38 Respiratory Rate 18 11/18/17 08:38 Blood Pressure 138/98 H 11/18/17 08:38 O2 Sat (%) 94 11/18/17 08:38 O2 Delivery Mode Room Air Allergies/Adverse Reactions: Penicillins Allergy (Verified 11/18/17 08:35) Pt reports rxn as child- unsure of rxn Home Medications: Medication Instructions Recorded HumuLIN N 03/16/17 Gabapentin [Neurontin 300 MG (*)] 04/09/17 QUEtiapine FUMARATE [Seroquel 100 04/09/17 mg (*)] Cyclobenzaprine [Flexeril] 11/11/17 Doxycycline Hyclate 100 mg PO BID #14 tablet 11/11/17 Furosemide [Lasix] 11/18/17 Medical Decision Making - Diagnostics EKG Interpretation: An EKG obtained and was read and documented in trace view. Please see trace view for full reading and report. Sinus rhythm, no acute ischemic changes, unchanged from previous Imaging Results: Imaging Impressions Chest X-Ray 11/18/17 08:53 Impression: CHF with interstitial pulmonary edema versus residual pneumonia. Imaging: Discussed imaging studies w/ call center director Radiologist ED Course/Re-evaluation: I suggested that we admit the patient because the x-ray worse appearing and his slight renal insufficiency now. He has failed home therapy now twice. The patient agrees with this plan. The patient refuses ambulance transport. 10:35 a.m. I discussed the case with Twila who will accept for Dr. Hayes. Differential Diagnosis: Partial list of the Differential diagnosis considered include but were not limited to; CHF exacerbation, pneumonia and although unlikely based on the history and physical exam, I also considered acute coronary disease, PE. - Data Points Laboratory Results: Laboratory Results 11/18/17 09:45 11/18/17 11/18/17 11/18/17 09:45 09:24 09:19 WBC 8.35 10^3/uL 10^3/uL (3.80-9.50) RBC 4.79 10^6/uL 10^6/uL (4.40-6.38) Hgb 13.8 g/dL g/dL (13.7-17.5) Hct 42.2 % % (40.0-51.0) MCV 88.1 fL fL (81.5-99.8) MCH 28.8 pg pg (27.9-34.1) MCHC 32.7 g/dL g/dL (32.4-36.7) RDW 15.4 % H % (11.5-15.2) Plt Count 206 10^3/uL 10^3/uL (150-400) MPV 10.1 fL fL (8.7-11.7) Neut % (Auto) 65.8 % % (39.3-74.2) Lymph % (Auto) 22.4 % % (15.0-45.0) Wake % (Auto) 7.1 % % (4.5-13.0) Eos % (Auto) 3.5 % % (0.6-7.6) Baso % (Auto) 0.8 % % (0.3-1.7) Nucleat RBC Rel Count 0.0 % % (0.0-0.2) Absolute Neuts (auto) 5.50 10^3/uL 10^3/uL (1.70-6.50) Absolute Lymphs (auto) 1.87 10^3/uL 10^3/uL (1.00-3.00) Absolute Monos (auto) 0.59 10^3/uL 10^3/uL (0.30-0.80) Absolute Eos (auto) 0.29 10^3/uL 10^3/uL (0.03-0.40) Absolute Basos (auto) 0.07 10^3/uL 10^3/uL (0.02-0.10) Absolute Nucleated RBC 0.00 10^3/uL 10^3/uL (0-0.01) Immature Gran % 0.4 % % (0.0-1.1) Immature Gran # 0.03 10^3/uL 10^3/uL (0.00-0.10) PT INR APTT POC Sodium 142 mEq/L mEq/L (135-145) POC Potassium 4.1 mEq/L mEq/L (3.3-5.0) POC Chloride 107.0 mEq/L mEq/L (97-110) POC Total CO2 22 mEq/L mEq/L (22-31) POC BUN 31 mg/dL H mg/dL (7-23) POC Creatinine 1.4 mg/dL H mg/dL (0.7-1.3) POC Glucose 138 mg/dL H mg/dL (70-100) POC Calcium 9.2 mg/dL mg/dL (8.5-10.4) POC Total Bilirubin 0.7 mg/dL mg/dL (0.1-1.4) POC AST 36 IU/L IU/L (17-59) POC ALT 35 IU/L IU/L (21-72) POC Alk Phosphatase 48 IU/L IU/L (38-126) POC Troponin I 0.02 ng/mL ng/mL (0.00-0.08) NT-Pro-B Natriuret Pep POC Total Protein 6.7 g/dL g/dL (6.3-8.2) POC Albumin 3.2 g/dL L g/dL (3.5-5.0) 11/18/17 11/18/17 08:00 08:00 WBC RBC Hgb Hct MCV MCH MCHC RDW Plt Count MPV Neut % (Auto) Lymph % (Auto) Wake % (Auto) Eos % (Auto) Baso % (Auto) Nucleat RBC Rel Count Absolute Neuts (auto) Absolute Lymphs (auto) Absolute Monos (auto) Absolute Eos (auto) Absolute Basos (auto) Absolute Nucleated RBC Immature Gran % Immature Gran # PT 14.5 SEC SEC (12.0-15.0) INR 1.11 (0.83-1.16) APTT 26.3 SEC SEC (23.0-38.0) POC Sodium POC Potassium POC Chloride POC Total CO2 POC BUN POC Creatinine POC Glucose POC Calcium POC Total Bilirubin POC AST POC ALT POC Alk Phosphatase POC Troponin I NT-Pro-B Natriuret Pep 1260 pg/mL H pg/mL (0-125) POC Total Protein POC Albumin Medications Given: Discontinued Medications Furosemide (Lasix Injection) 40 mg IVP EDNOW ONE Stop: 11/18/17 10:42 Last Admin: 11/18/17 10:45 Dose: 40 mg Point of Care Test Results: Chemistry 11/18/17 11/18/17 09:24 09:19 POC Sodium 142 mEq/L mEq/L (135-145) POC Potassium 4.1 mEq/L mEq/L (3.3-5.0) POC Chloride 107.0 mEq/L mEq/L (97-110) POC Total CO2 22 mEq/L mEq/L (22-31) POC BUN 31 mg/dL H mg/dL (7-23) POC Creatinine 1.4 mg/dL H mg/dL (0.7-1.3) POC Glucose 138 mg/dL H mg/dL (70-100) POC Calcium 9.2 mg/dL mg/dL (8.5-10.4) POC Total Bilirubin 0.7 mg/dL mg/dL (0.1-1.4) POC AST 36 IU/L IU/L (17-59) POC ALT 35 IU/L IU/L (21-72) POC Alk Phosphatase 48 IU/L IU/L (38-126) POC Troponin I 0.02 ng/mL ng/mL (0.00-0.08) POC Total Protein 6.7 g/dL g/dL (6.3-8.2) POC Albumin 3.2 g/dL L g/dL (3.5-5.0) D-Dimer D-Dimer Collection Date 11/18/17 D-Dimer Collection Time 09:08 D-Dimer (ng/ml) 231 Departure - Departure Disposition: [facility] Inpatient Acute Clinical Impression: CHF (congestive heart failure) Qualifiers: Heart failure type: diastolic Heart failure chronicity: acute on chronic Qualified Code(s): I50.33 - Acute on chronic diastolic (congestive) heart failure Condition: Fair
--- NOTE | 2017-11-18 09:34 | CPEKG ---
Test Reason : OPEN Blood Pressure : / mmHG Vent. Rate : 089 BPM Atrial Rate : 089 BPM P-R Int : 167 ms QRS Dur : 096 ms QT Int : 391 ms P-R-T Axes : 047 -16 097 degrees QTc Int : 476 ms Sinus rhythm Probable left atrial enlargement Borderline left axis deviation Borderline T wave abnormalities Borderline prolonged QT interval Confirmed by Fransisco Jeffery ([id number]) on 11/18/2017 9:33:54 AM Referred By: Confirmed By:Fransisco Jeffery
[2017-11-18 10:18] LABS: PLATELET COUNT 206 10^3/uL (150-400)
[2017-11-18 10:26] LABS: INR 1.11 (0.83-1.16); PROTIME(PATIENT) 14.5 SEC (12.0-15.0)
[2017-11-18] MEDS ORDERED: FUROSEMIDE 40 MG/4 ML VIAL IVP ONE (10:41)
[2017-11-18] MEDS ORDERED: LORazepam 0.5 MG TAB PO PRN (15:01)
[2017-11-18] MEDS ORDERED: ACETAMINOPHEN 325 MG TAB PO PRN (15:01)
[2017-11-18] MEDS ORDERED: ONDANSETRON 4 MG/2 ML VIAL IVP PRN (15:01)
[2017-11-18] MEDS ORDERED: IPRATROPIUM/ALBUTEROL 3 ML DEYVIAL IH PRN (15:02)
--- NOTE | 2017-11-18 15:42 | GHP ---
[f rep st] HISTORY AND PHYSICAL DATE OF ADMISSION: 11/18/2017 CHIEF COMPLAINT: Shortness of breath. HISTORY: The patient is a 67-year-old male who has had shortness of breath for a few weeks. This ge ts much worse when he lies flat. Every morning he wakes up from sleep in a panic, completely unable to breathe, and after about 30 minutes of sitting upright he is able to breathe better. He was recent ly seen in urgent care and treated for pneumonia. He was subsequently given a course of Lasix. He has been on Lasix for the last week but has had no improvement. He has had minimal urine output, despit e taking the Lasix. He has had some cough. There has been no lower extremity edema and no weight gain . He denies any chest pain. He re-presented to urgent care today and was given a dose of IV Lasix w hich has been successful and he has produced 2 large urinals of urine since his IV dose. Last fall, h e presented to the hospital with hypotension after being instructed to double all of his blood pressu re medications at the same time, he became acutely hypotensive and quite ill when he was discharged f rom the hospital, all blood pressure medications were held. He has not resumed any blood pressure me dications since that time. PAST MEDICAL HISTORY: 1. Bipolar and post traumatic stress disorder. 2. Diabetes type 2. 3. 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 Ejection fraction previously 5%, most recent echo up t o 50%. 4. Atrial flutter status post ablation. 5. AICD. MEDICATIONS: Please see computer record full detailed list. ALLERGIES: Penicillin. SOCIAL HISTORY: He was a chain smoker for 45 years but quit 10 years ago. He was also heavy drinker of alcohol but quit 10 years ago. He continues to use daily marijuana. He lives alone. He has 3 [facility] that live in [place]. He had a relapse about 2 weeks ago where he drank a 6 pack of beer but is committed to maintaining his sobriety again. REVIEW OF SYSTEMS: Complete review of systems obtained. Review of systems negative on constitutiona l, HEENT, GI, pulmonary, cardiovascular, , hematologic, endocrine, psych except for positives as in HPI. FAMILY HISTORY: Reviewed, noncontributory to presenting complaint. PHYSICAL EXAMINATION: GENERAL: Well-developed, well-nourished male, in no acute distress. Temperat ure is 37, pulse 98, blood pressure /92, saturating 94% on room air. EYE EXAMINATION: Norm al conjunctivae. Pupils react to light. ENT: Normal ears, nose. Hearing intact. Normal teeth. Dontrell pharynx moist. NECK: Trachea midline. No thyromegaly. CHEST: Normal respiratory effort. LUNGS: Biba silar rales. No wheeze. CARDIOVASCULAR: Regular rate and rhythm. No murmur. No extremity edema. A BDOMEN: Soft, nontender. No hepatosplenomegaly. SKIN: Warm, dry, intact without rash. MUSCULOSKE LETAL: Strength 5/5 in upper and lower extremities. NEURO: Cranial nerves intact. Normal sensation to light touch. PSYCHIATRIC: Alert and oriented oriented x3. Normal affect. Normal judgment. Nor mal memory. LABORATORY DATA: White count 8.35, hematocrit 42.2 platelets 206, sodium 142, potassium 4.1, chlorid e 107 bicarb 22, BUN 31, creatinine 1.4, glucose 130. LFTs are negative. BNP is 1260. Chest x-ray s hows mild congestive heart failure. EKG viewed by me. My personal interpretation: Normal sinus rhyt hm. No ischemic ST or T-wave changes. ASSESSMENT/PLAN: 1. Acute on chronic systolic congestive heart failure. Ejection fraction previously as well as 5% a lthough it had improved to 50% on medical therapy although his PRINCESS inhibitor was discontinued almost 1 year ago and was never resumed, so he could have some back tract regarding his ejection fraction. Will recheck an echocardiogram. He had a good result to a dose of IV Lasix. He will probably need to have his PRINCESS inhibitor resumed as this was essential to treatment of his low ejection fraction. 2. Acute renal failure. His baseline creatinine is 0.8. He does present with a creatinine of 1.4. I think this is probably due to the oral Lasix he had been taking which for some reason, had not prod uced a good output. He did receive 1 dose of IV Lasix and has responded well. We will recheck a itzel m 7 in the morning. We will hold off on prescribing any further Lasix until we can see that laborato ry study and assess for improvement. 3. Possible chronic obstructive pulmonary disease. He was a heavy chain smoker for 45 years. Will p rescribe nebs as needed. 4. Atrial flutter, status post ablation. Also with pacemaker automated implantable cardioverter def ibrillator in place. 5. Bipolar and posttraumatic stress disorder. Clarify home medications and continue. 6. Diabetes type 2. Continue home medications. ADMISSION STATUS: 1. Will admit to observation. We will re-evaluate tomorrow. 2. Code status is full. DVT PROPHYLAXIS: He is high risk. Will place him on subcu Lovenox. /[id number]/MODL
[2017-11-18] MEDS ORDERED: ALBUTEROL 60 PUFFS/8 GM MDI IH PRN (16:19)
[2017-11-18] MEDS: PRAMIPEXOLE 0.25 MG TAB PO SCH (20:05)
[2017-11-18] MEDS: GABAPENTIN 300 MG CAP PO SCH (20:06)
[2017-11-18] MEDS: QUEtiapine FUMARATE 100 MG TAB PO SCH (20:07)
[2017-11-18] MEDS: ASPIRIN 81 MG CHEWABLE TAB PO SCH (20:07)
[2017-11-18] MEDS: CYCLOBENZAPRINE 10 MG TAB PO SCH (20:07)
[2017-11-18] MEDS: INSULIN NPH HUMAN 100 UNITS/ML SYR SC SCH (20:10)
[2017-11-19] MEDS: GABAPENTIN 300 MG CAP PO SCH ×3 (08:57→20:57)
[2017-11-19] MEDS: QUEtiapine FUMARATE 100 MG TAB PO SCH ×2 (08:58→20:57)
[2017-11-19] MEDS: CYCLOBENZAPRINE 10 MG TAB PO SCH ×2 (08:58→20:56)
[2017-11-19] MEDS: PANTOPRAZOLE SODIUM 40 MG TAB PO SCH ×2 (09:03→20:56)
--- NOTE | 2017-11-19 12:07 | ECHO ---
[email or web address] [address] [address] Main: [phone] Fax: Transthoracic Echocardiogram Name: ROSS TARANGO MR#: [id number] Study Date: 11/19/2017 Study Time: 09:06 AM Date of : 1950 Age: 67 year(s) Height: 182.9 cm (72 in.) Weight: 88.45 kg (195 lb.) BSA: 2.11 m2 Gender: Male Examination: Echo Indication: FOLLOW UP CHF Image Quality: Adequate Contrast: Requested by: Rose Hayes BP: 133 mmHg/97 mmHg Heart Rate: Rhythm: Indication: FOLLOW UP CHF Procedure Staff Helicopter Utility Aircrewman: Reina Henson RDCS Reading Physician: Mayo Aguirre MD Requesting Provider: Conclusions: Dilated left ventricle. Severely reduced systolic LV function. The ejection fraction is visually estimated to be 15 %. There is paradoxic septal motion suggestive of bundle branch block, paced cardiac rhythm, or prior cardiac surgery. There is a pacemaker lead noted in the right ventricle. The left atrium is moderately dilated. Moderate mitral valve regurgitation is present. Mild aortic valve regurgitation is present. Mild to moderate tricuspid valve regurgitation. Right ventricular systolic pressure measures 71mmHg. Compared to 12/24/2016, LV function has decreased significantly, MR has worsened, and pulmonary hypertension has developed. Measurements: Chambers Valvular Assessment AV/MV Valvular Assessment TV/PV Normal Normal Normal Name Value Range Name Value Range Name Value Range Ao Paty (2D): 3.3 cm (1.4 cm-2.6 AV Vmax: 0.89 m/s (1 m/s-1.7 TR Vmax: 3.91 mm/s ( - ) cm) m/s) TR PGmax: 61 mmHg ( - ) IVSd (2D): 0.9 cm (0.6 cm-1.1 AV maxP mmHg ( - ) syst. PAP: 71 mmHg ( - ) cm) AV meanP mmHg ( - ) PV Vmax: 0.61 m/s (0.6 m/s-0.9 LVDd (2D): 6.1 cm (4.2 cm-5.9 PRICILLA (VTI): 1.9 cm ( - ) m/s) cm) MV E Vmax: 0.82 m/s ( - ) PV PGmax: 1 mmHg ( - ) LVDs (2D): 5.6 cm (2.1 cm-4 MV A Vmax: 0.48 m/s ( - ) cm) MV E/A: 1.71 ( - ) LVPWd (2D): 1.0 cm (0.6 cm-1 cm) MV PHT: 0.038 s ( - ) LVOTd 1.9 cm 1.9 cm mm MVA (PHT): 5.8 s ( - ) LVEF (BP): 25 % (>=55 %) Patient: ROSS TARANGO Study Date: 11/19/2017 Page 1 of 2 09:06 AM Visual EF: 15 % RVDd(2D): 3.5 cm (1.9 cm-3.8 cmmm) Continued Measurements: Chambers Valvular Assessment AV/MV Valvular Assessment TV/PV Name Value Name Value Name Value LADs: 4.3 cm MV DecTime: 120 m/s CVP (est.): 10 mmHg LADs Lon.2 cm MV E' Septal: 0.06 m/s LA Area: 24.3 cm2 MV E/E' Septal: 13.80 LA Volume: 90 ml MV E/E' Lateral: 12.60 LA Volume Index: 42.7 ml/m2 RA Area: 18.4 cm2 Additional Vessels Name Value Ao Ascendin.0 cm Inferior Vena Cava: 1.6 cm Findings: Left Ventricle: Dilated left ventricle. No LV hypertrophy. Severely reduced systolic LV function. The ejection fraction is visually estimated to be 15 %. There is paradoxic septal motion suggestive of bundle branch block, paced cardiac rhythm, or prior cardiac surgery. Unable to assess diastolic dysfunction. Right Ventricle: Normal size right ventricle. Normal RV function. There is a pacemaker lead noted in the right ventricle. Left Atrium: The left atrium is moderately dilated. Right Atrium: The right atrium is normal in size. Mitral Valve: The mitral valve is normal in appearance and function. Moderate mitral valve regurgitation is present. No mitral stenosis is present. Aortic Valve: The aortic valve is tri-leaflet. Mild aortic valve regurgitation is present. No aortic valve stenosis is present. Tricuspid Valve: The tricuspid valve is normal in appearance and function. Mild to moderate tricuspid valve regurgitation. The pulmonary artery pressure is severely increased. Right ventricular systolic pressure measures 71mmHg. Pulmonic Valve: The pulmonic valve is normal in appearance and function. There is no pulmonic regurgitation seen. Aorta: The aorta is normal. Normal size aortic root measuring 3.3 cm. Normal size ascending aorta measuring 3.0 cm. IVC: The IVC is normal sized. Pericardium: No pericardial effusion. No pleural effusion. (No Signature Object) Patient: ROSS TARANGO Study Date: 11/19/2017 Page 2 of 2 09:06 AM [id number]
--- NOTE | 2017-11-19 14:04 | ASMTCASEMG ---
Living Arrangements What is your living Answers: Alone arrangement? Who do you live with? Type Of Residence What kind of residence do Answers: House you live in? Discharge Plan Comments Coordination Status Comments Notes: Pts case discussed during tx rounds. Pt is 67 y/o man admitted for CHF exacerbation. PT has been ordered and awaiting recommendations. Pt reports that he is able to ambulate safely and independently. Dr. Hall will be consulting cardiology. Pt will most likely d/c independent when medically stable. CM available for d/c needs. Plan: Independent Date Signed: 11/19/2017 02:04 PM Electronically Signed By:ORLANDO Angel
[2017-11-19] MEDS: ENOXAPARIN 40 MG/0.4 ML SYR SC SCH (14:32)
--- NOTE | 2017-11-19 17:32 | HOSPPROG ---
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 He feels much better, vitals stable, renal function good. Remains in sinus rhythm However the cause of his new decrease in cardiac function is unclear. It is possible that he has ischemic disease, it could be alcohol use. Or it may just be that he is in need of good afterload reduction and decompression. It sounds like his PRINCESS-inhibitor in diuretics and beta-nile were stopped around a year ago when he had some lower blood pressures and was quite symptomatic with that. Is unclear to me at this time however whether all these were entirely stopped by his physicians are by the patient himself, and is clear that he has not had ideal follow-up over the past year. I reviewed all this in detail with the patient and I have also reviewed in detail with Dr. Karri Navarrete. At this point will continue some gentle diuresis, and will add some low-dose PRINCESS -inhibitor and follow his response very closely in terms of blood pressure, any orthostatic symptoms or fatigue, as well as renal function. It is also important get him back on some beta-nile with history of V-tach, shocks, and such severe ventricular dysfunction at this time. Once again following his blood pressure closely will be very important. Aside from our close monitoring here, it will be extremely important for him to have careful outpatient follow- up and monitoring with attention to his weight, blood pressures, and his symptoms. Ideally would be able to see a good return of ventricular function if we go about this correctly for him. He did talk to me about turning off his defibrillator as he does not want to have anymore shocks. I reviewed with him however that 1 potential result of turning off his defibrillator with that he would have some ventricular tachycardia that causes hypotension leading to either a stroke or some kidney failure or worsening cardiac function, with ongoing unresolved bowl chronic symptoms and debility related to that. I reviewed with him that if his heart were to continue worsening function despite good medical therapy, and he get to a point where his expected time of survival was very short or his symptoms were unmanageable, then turning off the defibrillator might be a reasonable options so that if he did have fatal ventricular tachycardia and this were acceptable to him he could go that way. At this point with an ejection fraction of 15%, he had very rapid improvement in his symptoms overnight with 1 dose of diuretic , and feels actually quite well, is breathing room air with no shortness of breath and is ambulatory. At this point he will require ongoing careful monitoring here, assessment of his coronaries, and titration of beta-nile and PRINCESS-inhibitor and diuretic while watching his symptoms and blood pressure and renal function before sending him home. Will need to change him to inpatient status Seen by me today on hospitalist rounds and multidisciplinary rounds PLANS: NPO after midnight for angiography tomorrow Will add low doses of S lisinopril and Coreg at this time Will reassess his volume status and consider adding some oral Lasix tomorrow Continue cardiac monitoring Follow renal function daily while we go through this Check orthostatic vital signs repeat chest x-ray any Change to inpatient status SUBJECTIVE: Feels quite a bit better No shortness of breath No chest pain No palpitations OBJECTIVE Vitals reviewed: All stable no fever Forensic Engineer, my review: Sinus Exam: alert oriented skin warm dry color ok resps not labored lungs minimal rales heart regular abd soft nondistended nontender, bowel sounds present limbs warm, no edema iv site ok Lab data: Improved renal function today, electrolytes good Repeat troponin normal I reviewed his admission chest x-ray images which shows definite pulmonary edema Objective: Vital Signs Temp Pulse Resp BP Pulse Ox 36.6 C 100 14 126/87 H 94 11/19/17 16:00 11/19/17 16:00 11/19/17 16:00 11/19/17 16:00 11/19/17 16:00 Laboratory Results 11/19/17 03:30 11/18/17 11/19/17 11/20/17 06:59 06:59 06:59 Intake Total 590 Output Total 1800 Balance -1210 PT 14.5 SEC (12.0-15.0) 11/18/17 08:00 INR 1.11 (0.83-1.16) 11/18/17 08:00 - Time Spent With Patient Time Spent with Patient: greater than 35 minutes Time Spent with Patient: Greater than 35 minutes spent on this patients care, greater than 50% of time spent counseling, educating, and coordinating care regarding the above mentioned plan. ICD10 Worksheet Patient Problems: Problems Problem Status Onset CHF (congestive heart failure) Acute Adverse effects of medication Acute Cardiomyopathy Acute Cyclic vomiting syndrome Acute Dehydration Acute Hypotension Acute Nausea & vomiting Acute Renal insufficiency Acute Supraventricular tachycardia Acute
[2017-11-19] MEDS: LISINOPRIL 2.5 MG TAB PO SCH (18:25)
[2017-11-19] MEDS: CARVEDILOL 3.125 MG TAB PO SCH (18:26)
[2017-11-19] MEDS: INSULIN NPH HUMAN 100 UNITS/ML SYR SC SCH (20:56)
[2017-11-19] MEDS: ASPIRIN 81 MG CHEWABLE TAB PO SCH (20:56)
[2017-11-19] MEDS: PRAMIPEXOLE 0.25 MG TAB PO SCH (20:57)
--- NOTE | 2017-11-20 08:43 | ASMTLACE ---
TARIK Comorbidities - select Answers: Congestive heart failure all that apply Diabetes (uncontrolled or controlled) Other Notes: AFib; GERD # of Emergency department Answers: 5-8 visits in the last 6 months Social determinants Answers: History of substance abuse (ETOH, street drugs, prescription drugs, etc.) History of trauma (PTSD, child abuse, domestic violence, etc.) Mental health diagnosis (anxiety, depression, pers onality disorders, etc.) Score: 17 Date Signed: 11/20/2017 08:42 AM Electronically Signed By:Michelle Chiang
--- NOTE | 2017-11-20 09:29 | PDMN ---
Medical Necessity [place] [facility] [place] Failure: 67 y/o w/ acute systolic CHF, acute kidney injury (formally ARF), new cardiomyopathy 15% EF w/ most recent 50%. recent etoh use, significan risk factors for coronary disease, presence of implanted defib. hx a flutter w/ ablation. Change to IP status per MD order @ 2053 due to new decrease in cardiac function, unclear etiology. Angiography scheduled per cardiology consult. Cont cardiac monitoring, monitor orthostatic VS, serial labs.
[2017-11-20] MEDS: CARVEDILOL 3.125 MG TAB PO SCH ×2 (09:35→18:12)
[2017-11-20] MEDS: GABAPENTIN 300 MG CAP PO SCH ×3 (09:35→20:23)
[2017-11-20] MEDS: CYCLOBENZAPRINE 10 MG TAB PO SCH ×2 (09:35→20:23)
[2017-11-20] MEDS: LISINOPRIL 2.5 MG TAB PO SCH (09:48)
[2017-11-20] MEDS: QUEtiapine FUMARATE 100 MG TAB PO SCH ×2 (09:48→20:22)
[2017-11-20] MEDS: ENOXAPARIN 40 MG/0.4 ML SYR SC SCH (10:00)
--- NOTE | 2017-11-20 10:01 | PDCARCONS ---
Cardiology Consult Reason for Consult: Newly noted drop in systolic function Chief Complaint: PND and orthopnea Requesting Physician: Hospitalist Team History of Present Illness: Patient is a 67 y/o male with history of CHF s/p ICD (reports of non ischaemic CMP - suspect ETOH use - with LVEF of 5% in remote past, and increase to systolic function of 50%), DM, atrial flutter s/p two ablations in the past, bipolar disorder and PTSD, who presented to [facility] with complaints of shortness of breath and PND. No cardiovascular complaints of chest pains or pressure have been noted. Compliance with ICD interrogation has been poor (last remote interrogation was in May). Review of the H&P at the time of admission with several urgent care visits for pneumonia (two rounds of antibiotics were given) , as well as some issues with hypotension (related to recommended changes of antihypertensive therapy). It does not sound like the patient has been on antihypertensive therapy for some time (possibly the last month). The last outpatient follow up note with [facility] (Dr. Marily Gooden) was in 2015. There have been pacer/ICD notes generated, but it does not seem that the patient has been seen. No active cardiovascular complaints today. Concerning for the patient is a semi productive cough with pink tinge noted (this has been noted for "years" according to the patient). Within the last month, the patient did "...fall off the wagon..." and drank an unspecified amount of alcohol. The patient stated that the last time that he was really drinking was about ten years go (when the LVEF was noted to be severely suppressed), and there have been "...three to four..." episodes that involved him drinking in excess since that time. 12 point review of systems was unremarkable outside of that which was mentioned above History Information - Allergies/Home Medication List Allergies/Adverse Reactions: Penicillins Allergy (Verified 11/18/17 08:35) Pt reports rxn as child- unsure of rxn Home Medications: Albuterol [Proventil Inhaler HFA (*)] 1 - 2 puffs IH Q4H PRN 11/18/17 [Last Taken Unknown] Aspirin [Aspirin 81mg (*)] 81 mg PO HS 11/18/17 [Last Taken 11/17/17] Cyclobenzaprine [Flexeril 10 MG (*)] 10 mg PO BID 11/18/17 [Last Taken 11/17/17] Diclofenac Sodium [Voltaren 75 MG (*)] 75 mg PO HS 11/18/17 [Last Taken 11/17/17 ] Furosemide [Lasix 20 MG (*)] 20 mg PO DAILY 11/18/17 [Last Taken 11/17/17] Gabapentin [Neurontin 300 MG (*)] 600 mg PO TID 11/18/17 [Last Taken 11/18/17] Insulin NPH Human [HumuLIN N] 50 unit SC HS 11/18/17 [Last Taken 11/17/17] Omeprazole Magnesium 20 mg PO HS 11/18/17 [Last Taken 11/17/17] Pramipexole Di-HCl [Mirapex 0.25 mg (*)] 1.25 mg PO HS 11/18/17 [Last Taken ] QUEtiapine FUMARATE [Seroquel 100 mg (*)] 200 mg PO DAILY 11/18/17 [Last Taken 11/18/17] QUEtiapine FUMARATE [Seroquel 100 mg (*)] 500 mg PO HS 11/18/17 [Last Taken ] I have personally reviewed and updated: family history, medical history, social history, surgical history Past Medical History: - Past Medical History atrial fibrillation (past flutter ablation), CHF, diabetes type 2, hypertension , psychiatric history, pneumonia (recent history ) - Surgical History Reports: no pertinent surgical hx - Family History Positive for: non-pertinent - Social History Smoking Status: Former smoker Alcohol Use: Heavy (reportedly, the patient has been mostly sober) Drug Use: Marijuana Cardiac History - Cardiac History Past Cardiac History: ABLATION Cardiac Risk Factors: hypertension (>140/90), age > 65, male Timing/Duration: Weeks Severity: moderate Severity Scale: 5 Activities at Onset: activity Modifying Factors: improves with: coughing, movement, rest Associated Symptoms: cough, shortness of breath Physical Exam Physical Exam: Temp Pulse Resp BP Pulse Ox 36.4 C 82 16 120/85 H 96 11/20/17 07:53 11/20/17 07:53 11/20/17 07:53 11/20/17 07:53 11/20/17 07:53 O2 (L/minute) 2 Constitutional: no apparent distress, appears nourished, not in pain Eyes: PERRL Ears, Nose, Mouth, Throat: moist mucous membranes, hearing normal Cardiovascular: regular rate and rhythym, no murmur, rub, or gallop, pulses symmetric bilaterally, No JVD, No edema Peripheral Pulses: 2+: dorsalis-pedis (R), dorsalis-pedis (L) Respiratory: no respiratory distress, no rales or rhonchi, clear to auscultation Gastrointestinal: normoactive bowel sounds Skin: warm, normal color Musculoskeletal: full muscle strength, no muscle tenderness, normal joint ROM Neurologic: AAOx3, sensation intact bilaterally, CN II-XII Intact Psychiatric: interacting appropriately, not anxious, not encephalopathic Lab and Imaging 11/18/17 09:45 11/20/17 03:25 WBC 8.35 10^3/uL (3.80-9.50) 11/18/17 09:45 RBC 4.79 10^6/uL (4.40-6.38) 11/18/17 09:45 Hgb 13.8 g/dL (13.7-17.5) 11/18/17 09:45 Hct 42.2 % (40.0-51.0) 11/18/17 09:45 MCV 88.1 fL (81.5-99.8) 11/18/17 09:45 MCH 28.8 pg (27.9-34.1) 11/18/17 09:45 MCHC 32.7 g/dL (32.4-36.7) 11/18/17 09:45 RDW 15.4 % (11.5-15.2) H 11/18/17 09:45 Plt Count 206 10^3/uL (150-400) 11/18/17 09:45 MPV 10.1 fL (8.7-11.7) 11/18/17 09:45 Neut % (Auto) 65.8 % (39.3-74.2) 11/18/17 09:45 Lymph % (Auto) 22.4 % (15.0-45.0) 11/18/17 09:45 [place] % (Auto) 7.1 % (4.5-13.0) 11/18/17 09:45 Eos % (Auto) 3.5 % (0.6-7.6) 11/18/17 09:45 Baso % (Auto) 0.8 % (0.3-1.7) 11/18/17 09:45 Nucleat RBC Rel Count 0.0 % (0.0-0.2) 11/18/17 09:45 Absolute Neuts (auto) 5.50 10^3/uL (1.70-6.50) 11/18/17 09:45 Absolute Lymphs (auto) 1.87 10^3/uL (1.00-3.00) 11/18/17 09:45 Absolute Monos (auto) 0.59 10^3/uL (0.30-0.80) 11/18/17 09:45 Absolute Eos (auto) 0.29 10^3/uL (0.03-0.40) 11/18/17 09:45 Absolute Basos (auto) 0.07 10^3/uL (0.02-0.10) 11/18/17 09:45 Absolute Nucleated RBC 0.00 10^3/uL (0-0.01) 11/18/17 09:45 Immature Gran % 0.4 % (0.0-1.1) 11/18/17 09:45 Immature Gran # 0.03 10^3/uL (0.00-0.10) 11/18/17 09:45 PT 14.5 SEC (12.0-15.0) 11/18/17 08:00 INR 1.11 (0.83-1.16) 11/18/17 08:00 APTT 26.3 SEC (23.0-38.0) 11/18/17 08:00 POC Sodium 142 mEq/L (135-145) 11/18/17 09:24 Sodium 139 mEq/L (135-145) 11/20/17 03:25 POC Potassium 4.1 mEq/L (3.3-5.0) 11/18/17 09:24 Potassium 4.2 mEq/L (3.3-5.0) 11/20/17 03:25 POC Chloride 107.0 mEq/L (97-110) 11/18/17 09:24 Chloride 105 mEq/L (97-110) 11/20/17 03:25 Carbon Dioxide 27 mEq/l (22-31) 11/20/17 03:25 POC Total CO2 22 mEq/L (22-31) 11/18/17 09:24 Anion Gap 7 mEq/L (8-16) L 11/20/17 03:25 POC BUN 31 mg/dL (7-23) H 11/18/17 09:24 BUN 25 mg/dL (7-23) H 11/20/17 03:25 Creatinine 1.0 mg/dL (0.7-1.3) 11/20/17 03:25 POC Creatinine 1.4 mg/dL (0.7-1.3) H 11/18/17 09:24 Estimated GFR > 60 11/20/17 03:25 Glucose 98 mg/dL (70-100) 11/20/17 03:25 POC Glucose 105 mg/dL (70-100) H 11/20/17 09:23 POC Calcium 9.2 mg/dL (8.5-10.4) 11/18/17 09:24 Calcium 9.7 mg/dL (8.5-10.4) 11/20/17 03:25 Magnesium 1.7 mg/dL (1.6-2.3) 11/20/17 03:25 POC Total Bilirubin 0.7 mg/dL (0.1-1.4) 11/18/17 09:24 POC AST 36 IU/L (17-59) 11/18/17 09:24 POC ALT 35 IU/L (21-72) 11/18/17 09:24 POC Alk Phosphatase 48 IU/L (38-126) 11/18/17 09:24 POC Troponin I 0.02 ng/mL (0.00-0.08) 11/18/17 09:19 Troponin I 0.013 ng/mL (0.000-0.034) 11/19/17 03:30 NT-Pro-B Natriuret Pep 1260 pg/mL (0-125) H 11/18/17 08:00 POC Total Protein 6.7 g/dL (6.3-8.2) 11/18/17 09:24 POC Albumin 3.2 g/dL (3.5-5.0) L 11/18/17 09:24 TSH 2.470 uIU/mL (0.465-4.680) 08/26/18 03:30 Visualized and Interpreted Chest x-ray results: Yes Chest X-ray Interpretation: other (findings consistent with CHF versus residual pneumonia) Visualized and Interpreted EKG results: Yes EKG Interpretation: Positive for: normal sinsus rhythm Telemetry: normal sinus rhythm Echocardiogram: LVEF of 15% with moderate MR, mild to mod TR and severe RVSP elevation (>70 mm Hg). A/P Assessment: Patient is a 67 y/o male with history of atrial flutter ablation (X2), alcohol abuse history (reportedly severe), CHF with ICD implant (LVEF in remote past was 5%, increase to 50% had been noted, and this admission's echo with systolic function of 15%), HTN, bipolar disorder with PTSD, and DM, who presented to [facility] with complaints of progressive PND and orthopnea. Symptoms have been note for the past month with recent treatments for suspected pneumonia. ICD interrogation today with normal single chamber function noted (no evidence of VT or ability to determine high rates). Initial plans discussed over the weekend were for left and right heart catheterization (patient is NPO and no lovenox has been given this morning). Plan: Given the "new" drop in systolic function that has been noted by echocardiography (from 2017 until today), would recommend pursuit of invasive left heart catheterization. Today, the patient appears quite stable and without active CV complaints. Of concern to the patient is ongoing pink sputum from coughing. Would resume antihypertensive therapies as prior. Hold lovenox for the time being (with pending invasive procedure). Maintain medications for bipolar disorder. Further recommendations to follow.
--- NOTE | 2017-11-20 12:01 | PDPROPOC ---
Sedation Plan of Care Sedation Plan of Care: vital signs stable, mental status noted, patient educated of risks, benefits, alternatives, patient can tolerate sedation ASA Classification: ASA 2 Planned drugs: fentanyl, midazolam Mallampati Score: Class 2 Mallampati Reference Image: Patient passed 3-3-2 rule?: Yes
[2017-11-20] MEDS ORDERED: ASPIRIN EC 325 MG TAB PO ONE (12:37)
[2017-11-20] MEDS ORDERED: FAMOTIDINE 20 MG TAB PO ONE (12:37)
[2017-11-20] MEDS ORDERED: DIAZEPAM 5 MG TAB PO ONE (12:37)
[2017-11-20] MEDS ORDERED: diphenhydrAMINE 25 MG CAP PO ONE (12:37)
[2017-11-20] MEDS ORDERED: NS 1,000 ML IV ONE (12:37)
[2017-11-20] MEDS ORDERED: LIDOCAINE 1% 300 MG/30 ML SDV ONE (13:08)
[2017-11-20] MEDS ORDERED: fentaNYL 100 MCG/2 ML INJ ONE (13:09)
[2017-11-20] MEDS ORDERED: IOPAMIDOL (ISOVUE-370) 150 ML BTL IV ONE (13:09)
[2017-11-20] MEDS ORDERED: MIDAZOLAM 2 MG/2 ML VIAL ONE (13:09)
--- NOTE | 2017-11-20 13:15 | HOSPPROG ---
Hospitalist Progress Note Assessment/Plan: DIAGNOSES: * acute congestive heart failure, systolic * acute kidney injury, improved nicely in setting of acute diuresis * new cardiomyopathy 15% EF with most recent 50%, but previous history of nonischemic cardiomyopathy EF 5% 10 years ago, was felt likely due to alcohol and drugs * patient has not been taking angiotensin medicine or other afterload barrel liner, beta-nile, or any diuretic over past year; at 1 point in past did have symptomatic hypotension while taking all of these medicines together, unclear exactly how when why the medicines were stopped * recent use of alcohol * significant risk factors for coronary disease * presence of implanted defibrillator, history of 9 shocks approximately 8 years ago but none since * history of a flutter with ablation The cause for his decrease in EF at this time could be ischemic, lack of afterload reduce her such as PRINCESS-inhibitor, alcohol abuse and/or other. His pacemaker/AICD has been interrogated. He has had no recent shocks and has not used his pacer which is set for heart rate of 40. So far he has tolerated addition of low-dose beta-nile and PRINCESS-inhibitor well I reviewed in detail today with Dr. Mo Schilling Seen by me on hospitals rounds and multidisciplinary rounds PLANS: * Angiography today * Will continue current low doses of lisinopril and Coreg at this time, gradual titration up over time as tolerated * Check repeat chest x-ray (pending), consider further diuresis, though at the moment is fairly asymptomatic and we will make sure he is going to tolerate his beta-nile and PRINCESS-inhibitor * Continue cardiac monitoring * Follow renal function after angiography * Check orthostatic vital signs daily SUBJECTIVE: Feels quite a bit better No shortness of breath No chest pain No palpitations OBJECTIVE Vitals reviewed: All stable no fever Tinner Automatic, my review: Sinus Exam: alert oriented skin warm dry color ok resps not labored lungs minimal rales heart regular abd soft nondistended nontender, bowel sounds present limbs warm, no edema iv site ok Lab data: Improved renal function today with BUN and creatinine both better, electrolytes good He did have 1 blood sugar of 197 last evening after drinking large volume of juice, otherwise sugars have been good Radiology: Repeat chest x-ray pending Objective: Vital Signs Temp Pulse Resp BP Pulse Ox 36.6 C 89 18 106/80 92 11/20/17 11:28 11/20/17 11:28 11/20/17 11:28 11/20/17 11:28 11/20/17 11:28 Laboratory Results 11/20/17 03:25 11/19/17 11/20/17 11/21/17 06:59 06:59 06:59 Intake Total 550 Balance 550 PT 14.5 SEC (12.0-15.0) 11/18/17 08:00 INR 1.11 (0.83-1.16) 11/18/17 08:00 - Time Spent With Patient Time Spent with Patient: greater than 35 minutes Time Spent with Patient: Greater than 35 minutes spent on this patients care, greater than 50% of time spent counseling, educating, and coordinating care regarding the above mentioned plan. ICD10 Worksheet Patient Problems: Problems Problem Status Onset CHF (congestive heart failure) Acute Adverse effects of medication Acute Cardiomyopathy Acute Cyclic vomiting syndrome Acute Dehydration Acute Hypotension Acute Nausea & vomiting Acute Renal insufficiency Acute Supraventricular tachycardia Acute
[2017-11-20 13:18] LABS: PLATELET COUNT 254 10^3/uL (150-400)
[2017-11-20] MEDS ORDERED: ATROPINE SULFATE 1 MG/10 ML SYR IVP PRN (15:40)
[2017-11-20] MEDS ORDERED: NITROGLYCERIN 0.4 MG BTL SL PRN (15:40)
--- NOTE | 2017-11-20 15:46 | PDDXCAT ---
Diagnostic Cath Note - . Date: 11/20/17 Pony Roll Finisher: Shakir High-risk criteria on non-invasive testing: severe resting left ventricular dysfunction (LVEF<35%) - Procedure Access: right groin Procedure: left heart catheterization, coronary angiography, left ventriculogram - Materials Left Heart Cath size: 6F Left Heart Cath materials: standard multipack (JL4, JR4, pigtail) - Findings-Left Heart Catheterization LM: Short vessel, moderate diameter, with bifurcation into the LAD and LCX vessels. No luminal irregularities were noted. LAD: Medium diamter vessel with a principal diagonal (D1). In the mid portion of the vessel, there was a minor luminal irregularity of no more than 20% noted. LCX: Medium diameter vessel with a principal obtuse marginal (1). The bifurcation into this OM1 had minor luminal irregularties noted. The OM1 branch had a 50% stenosis in the proximal portion of the vessel. Diffuse disease of 20% was noted in the mid/distal LCX. RCA: Medium diameter vessel with 20% luminal irregularities throughout. This is the dominant vessel with supply into the PDA and HUGH vessels. EDP: 35 mm Hg LVEF: 5-10% Wall motion: severe, global hypokinesis Complications: none Estimated blood loss: <50ml Closure method: Angioseal Assessment: 67 y/o male with history of non ischaemic CMP (Ejection fraction in the remote past was 5%, ICD was placed, medical therapy was started, and low normal LVEF was achieved (50%). No critical CAD was noted on [facility] today, but severe, global hypokinesis with LVEF of <10% was noted. Plan: Resumption of medications (specifically Coreg and ACEi therapy) given the non ischaemic CMP noted. The degree of MV regurgitation (moderate to severe) as well as TV (moderate) certainly play some part in the CMP noted, but exactly what part of the etiology is uncertain. Medications (specifically, beta nile and ACEi) need to be consistently taken (there was cessation of therapy in the recent past due to intolerance on recommended up titration, per reports) . Strong recommendations for complete ETOH cessation as well. Would attempt aggressive medical therapy. Outpatient follow up with cardiology for reassessment by limited echo in coming weeks. Would add spironolactone (25 mg) if possible to the medical therapy. Given the degree of LV suppression, anticoagulation is recommended (but would refrain from this therapy today, post angiography). Cardiology will follow this patient closely while inpatient. Intervention: none Patient Problems: Problems Problem Status Onset CHF (congestive heart failure) Acute Adverse effects of medication Acute Cardiomyopathy Acute Cyclic vomiting syndrome Acute Dehydration Acute Hypotension Acute Nausea & vomiting Acute Renal insufficiency Acute Supraventricular tachycardia Acute
[2017-11-20] MEDS: PANTOPRAZOLE SODIUM 40 MG TAB PO SCH (20:22)
[2017-11-20] MEDS: ASPIRIN 81 MG CHEWABLE TAB PO SCH (20:23)
[2017-11-20] MEDS: PRAMIPEXOLE 0.25 MG TAB PO SCH (20:23)
[2017-11-20] MEDS: INSULIN NPH HUMAN 100 UNITS/ML SYR SC SCH (20:36)
[2017-11-21] MEDS: LISINOPRIL 2.5 MG TAB PO SCH (09:02)
[2017-11-21] MEDS: GABAPENTIN 300 MG CAP PO SCH (09:03)
[2017-11-21] MEDS: CARVEDILOL 3.125 MG TAB PO SCH (09:03)
[2017-11-21] MEDS: QUEtiapine FUMARATE 100 MG TAB PO SCH (09:03)
[2017-11-21] MEDS: CYCLOBENZAPRINE 10 MG TAB PO SCH (09:03)
[2017-11-21] MEDS: ENOXAPARIN 40 MG/0.4 ML SYR SC SCH (09:05)
--- NOTE | 2017-11-21 09:48 | PDCARPN ---
Cardiology Progress Note Chief Complaint: No cardiovascular complaints, but moderate degree of anxiety/emotion today about the status of heart function Assessment/Plan: Assessment: 11-21-17 Patient doing well today. No cardiovascular complaints. Patient is back on medical therapy (ACEi and beta blockers). ICD interrogation yesterday with grossly normal function noted (and a 5 year battery reserve). No chest pains or pressure. No (from the sounds of it) PND or orthopnea. Patient lives at [place], and this might potentially be problematic in the acute phase of his current cardiovascular condition. Blood tinged sputum was reported yesterday, and could be secondary to the degree of heart dysfunction noted. Coronary angiography without critical CAD noted (there was diffuse CAD appreciated, but none more than 50%). Systolic function by angiography yesterday was less than 10%. 11-20-17 Patient is a 67 y/o male with history of CHF s/p ICD (reports of non ischaemic CMP - suspect ETOH use - with LVEF of 5% in remote past, and increase to systolic function of 50%), DM, atrial flutter s/p two ablations in the past, bipolar disorder and PTSD, who presented to [facility] with complaints of shortness of breath and PND. No cardiovascular complaints of chest pains or pressure have been noted. Compliance with ICD interrogation has been poor (last remote interrogation was in May). Review of the H&P at the time of admission with several urgent care visits for pneumonia (two rounds of antibiotics were given) , as well as some issues with hypotension (related to recommended changes of antihypertensive therapy). It does not sound like the patient has been on antihypertensive therapy for some time (possibly the last month). The last outpatient follow up note with [facility] (Dr. Marily Gooden) was in 2016. There have been pacer/ICD notes generated, but it does not seem that the patient has been seen. No active cardiovascular complaints today. Concerning for the patient is a semi productive cough with pink tinge noted (this has been noted for "years" according to the patient). Within the last month, the patient did "...fall off the wagon..." and drank an unspecified amount of alcohol. The patient stated that the last time that he was really drinking was about ten years go (when the LVEF was noted to be severely suppressed), and there have been "...three to four..." episodes that involved him drinking in excess since that time. Plan: (1) Continue therapy on ACEi (lisinopril) and beta blockers (Coreg) as at present (2) Would add low dose ASA therapy for the CAD that was noted (3) If pressures tolerate, would introduce spironolactone (4) Maintain scheduled ICD interrogations (5) Outpatient follow up with Dr. Marily Navarrete of [facility] team (6) Strong recommendations against any ETOH, tobacco, or illicits (Marijuana in particular) (7) Ambulation with walking is recommended - would consider cardiac rehab consult Subjective: No cardiovascular complaints. Moderate anxiety and concern about heart dysfunction Reviewed/Discussed With: hospitalist Objective: Vital Signs (8 Hrs) Temp Pulse Resp BP Pulse Ox 11/21/17 07:23 36.6 C 90 16 109/75 94 11/21/17 03:54 36.4 C 89 16 89/58 L 93 Intake/Output (24 Hrs) 11/20/17 11/21/17 11/22/17 05:59 05:59 05:59 Intake Total 550 600 Balance 550 600 Intake: Oral (ml) 550 500 IV Intake (ml) 100 Other: Weight 86.3 kg 85.9 kg Number of Voids Toilet 2 1 Number of Stools Toilet 1 Result Diagrams: 11/20/17 12:58 11/20/17 03:25 Telemetry: normal sinus/sinus tachycardia - Physical Exam Constitutional: WDWN, healthy appearing, no apparent distress Eyes: PERRL, EOMI Ears, Nose, Mouth, Throat: moist mucous membranes Cardiovascular: regular rate and rhythm, systolic murmur, pulses symmetric bilat , No jugular vein distention Peripheral Pulses: 2+: dorsalis-pedis (R), dorsalis-pedis (L) Respiratory: clear to auscultate bilat, no crackles, no wheezes Gastrointestinal: normoactive bowel sounds Skin: no rashes, no edema Musculoskeletal: no muscular tenderness Neurologic: AAOx3, CN II-XII grossly intact Psychiatric: cooperative, interactive, following commands, anxious ICD10 Worksheet Patient Problems: Problems Problem Status Onset CHF (congestive heart failure) Acute Adverse effects of medication Acute Cardiomyopathy Acute Cyclic vomiting syndrome Acute Dehydration Acute Hypotension Acute Nausea & vomiting Acute Renal insufficiency Acute Supraventricular tachycardia Acute
[2017-11-21 11:15] VITALS: BP 103/67
--- NOTE | 2017-11-21 14:01 | PDDCSUM ---
Discharge Summary Discharge Summary: Admission Date: 11/19/2017 Discharge Date: 11/21/2017 Consults: Cardiology Procedures: [facility] Followup: With Cardiology, Dr. Marily Navarrete of [facility] team Hospital Course/Problem List: * acute congestive heart failure, systolic -Will continue current low doses of lisinopril 2.5 mg and Coreg 3.125 mg BID at this time, gradual titration up over time as tolerated, addition of spironolactone as an OP per Cardiology * acute kidney injury, improved nicely in setting of acute diuresis * new cardiomyopathy 15% EF with most recent 50%, but previous history of nonischemic cardiomyopathy EF 5% 10 years ago, was felt likely due to alcohol and drugs - patient has not been taking angiotensin medicine or other afterload hopper feeder , beta-nile, or any diuretic over past year; at 1 point in past did have symptomatic hypotension while taking all of these medicines together, unclear exactly how when why the medicines were stopped * recent use of alcohol- discussed cessation with patient * presence of implanted defibrillator, history of 9 shocks approximately 8 years ago but none since * history of a flutter with ablation, continue ASA 81 mg qd Time spent on discharge >35 minutes with >50% of time spent on patient education and counseling
== END 2017-11-21 14:49 | disposition home or self-care (01) | DRG 287 ==
LOC: CED 08:31 → CEDHOLD 10:38 → F2W 14:05 → OBSVTOIN 11-19 20:54
PROVIDERS: ADMIT Internal Medicine; ATTEND Internal Medicine
PROC: 4A023N7 Measurement of Cardiac Sampling and Pressure, Left Heart, Percutaneous Approach (ICD-10-PCS; principal; 2017-11-20)
PROC: B2151ZZ Fluoroscopy of Left Heart using Low Osmolar Contrast (ICD-10-PCS; principal; 2017-11-20)
PROC: B2111ZZ Fluoroscopy of Multiple Coronary Arteries using Low Osmolar Contrast (ICD-10-PCS; principal; 2017-11-20)
DX: I50.23 Acute on chronic systolic (congestive) heart failure (principal); N17.9 Acute kidney failure, unspecified; I42.9 Cardiomyopathy, unspecified; Z95.810 Presence of automatic (implantable) cardiac defibrillator; F31.9 Bipolar disorder, unspecified; F43.10 Post-traumatic stress disorder, unspecified; E11.9 Type 2 diabetes mellitus without complications; J44.9 Chronic obstructive pulmonary disease, unspecified
CPT/HCPCS: 71046-PO; 80053-PO; 84484-PO; 96374; 97161-GP; 97165-GO; C1760; G0378; G8978-GP-CH; G8979-GP-CH; G8980-GP-CH; G8987-GO-CI; G8988-GO-CI; G8989-GO-CI; J1644; J1650; J1815; J1940; J2250; J3010; Q9967

== ENCOUNTER 2017-11-26 11:57 | Emergency (ER) | payer OTHER ==
--- NOTE | 2017-11-26 12:17 | EDPHY ---
General Time Seen by Provider: 11/26/17 12:12 Narrative: CHIEF COMPLAINT: Coughing blood HISTORY OF PRESENT ILLNESS: Patient presents with complaints of 2 days history of coughing blood. He says this started gradually and has been persistent. Not painful. No new shortness of breath from baseline. Fever chills. No nausea, vomiting or diarrhea. He has no voluminous blood. He has some pink sputum that he is coughing up. He was recently Hospital for cardiomyopathy and diuresis. He says that he has been doing better. He has cardiology follow-up next week. No other associated complaints or modifying factors REVIEW OF SYSTEMS: 10 systems were reviewed and negative with the exception of the elements mentioned in the history of present illness. PCP: Dr. Tate SPECIALISTS: Cardiology PAST MEDICAL HISTORY: Atrial tachycardia, AFib status post ablation, pacemaker, bipolar disorder, CHF , anxiety, dyslipidemia, reflux, diabetes, posttraumatic stress syndrome PAST SURGICAL HISTORY: Implanted cardiac device. No recent surgeries SOCIAL HISTORY: Lives independently. Previous smoker FAMILY HISTORY: Noncontributory EXAMINATION: General Appearance: Alert, no distress. Ambulating in the room. Head: normocephalic, atraumatic Eyes: Pupils equal and round, no conjunctival pallor or injection ENT, Mouth: Mucous membranes moist Neck: Normal inspection, supple, non-tender Respiratory: Mild basilar crackles. No wheezing, retractions, diminishment or distress. Cardiovascular: Regular rate and rhythm. No murmur Gastrointestinal: Abdomen is soft and nontender Back: non-tender, no bony abnormalities Neurological: A&O, nonfocal, normal gait Skin: Warm and dry, no rash Extremities: Nontender, no pedal edema Psychiatric: Mood and affect normal DIFFERENTIAL DIAGNOSES: Including but not limited to PE, pulmonary edema, pneumonia, congestive heart failure, cardiomyopathy, pleural effusion, bronchitis, bronchiectasis MDM: 12:15 p.m. Two days history of hemoptysis with described frothy sputum. He has no chest pain. Baseline shortness of breath with no fever, chills or feeling of illness. No trauma or injury. No history of venous thrombolic event. He was recently admitted to the hospital and has a diagnosis of cardiomyopathy. I discussed with Dr. Patel and he recommends CT angiography of the chest with laboratory studies further evaluation. He is awake and alert. No acute distress. No SIRS criteria. 12:45 p.m. Laboratory studies are unremarkable. CT pending. 1:40 p.m. Notified by radiologist Dr. Ballard. No PE. There is persistent bilaterally nodule infiltrates. Recommend bronchoscopy when appropriate. No other acute findings. I discussed this with Dr. Patel re-evaluated the patient. He is resting comfortably. No chest pain. No shortness of breath. Vital signs are within normal limits. We discussed discharge home with outpatient pulmonology referral for bronchoscopy evaluation. We discussed ED precautions for any increase in hemoptysis, shortness of breath, fever, any chest pain of any kind. He states he is comfortable going home and would like to do so. I do feel it is safe for him to be discharged. I have discussed with case management and they will assist with outpatient follow-up with pulmonology. Discharged home stable condition. SUPERVISION: Patient was independently examined, but I discussed the case with my secondary supervising physician Dr. Patel CONSULTATION: None. Pulmonology referral - Diagnostics Imaging Results: Imaging Impressions Chest/Thorax CTA 11/26/17 12:24 Impression: 1. No evidence of thrombopulmonary embolic disease. 2. Patchy airspace consolidation bilaterally, more predominant in the left upper lobe and left lower lobe. There is mixed attenuation with groundglass opacities which have slightly improved over the interval, but worsening more focal nodular consolidation. Continued moderate mediastinal and hilar lymphadenopathy, similar in appearance, which may be reactive. This could be an atypical multifocal pneumonia. 3. Moderate sized hilar hernia. 4. Other chronic findings, as above. Results called and discussed with Casey Ruiz PA-C on November 26, 2017 at 1345 hours. - History Smoking Status: Current some day smoker - Objective Vital Signs: Initial Vital Signs Temperature (C) 97.5 F 11/26/17 11:59 Heart Rate 102 H 11/26/17 11:59 Respiratory Rate 18 11/26/17 11:59 Blood Pressure 132/96 H 11/26/17 11:59 O2 Sat (%) 97 11/26/17 11:59 O2 Delivery Mode Room Air Allergies/Adverse Reactions: Penicillins Allergy (Verified 11/26/17 11:59) Pt reports rxn as child- unsure of rxn Home Medications: Medication Instructions Recorded Albuterol [Proventil Inhaler HFA 1 - 2 puffs IH Q4H PRN 11/18/17 (*)] Aspirin [Aspirin 81mg (*)] 81 mg PO HS 11/18/17 Cyclobenzaprine [Flexeril 10 MG 10 mg PO BID 11/18/17 (*)] Diclofenac Sodium [Voltaren 75 MG 75 mg PO HS 11/18/17 (*)] Furosemide [Lasix 20 MG (*)] 20 mg PO DAILY 11/18/17 Gabapentin [Neurontin 300 MG (*)] 600 mg PO TID 11/18/17 Insulin NPH Human [HumuLIN N] 50 unit SC HS 11/18/17 Omeprazole Magnesium 20 mg PO HS 11/18/17 Pramipexole Di-HCl [Mirapex 0.25 1.25 mg PO HS 11/18/17 mg (*)] QUEtiapine FUMARATE [Seroquel 100 200 mg PO DAILY 11/18/17 mg (*)] QUEtiapine FUMARATE [Seroquel 100 500 mg PO HS 11/18/17 mg (*)] Carvedilol [Coreg (*)] 3.125 mg PO BIDMEAL #60 tab 11/21/17 Lisinopril [Zestril 2.5 mg (*)] 2.5 mg PO DAILY #30 tab 11/21/17 Laboratory Results: Laboratory Results 11/26/17 12:40 11/26/17 12:40 11/26/17 11/26/17 11/26/17 12:46 12:40 12:40 WBC RBC Hgb POC Hgb 13.6 gm/dL L gm/dL (13.7-17.5) Hct POC Hct 40 % % (40-51) MCV MCH MCHC RDW Plt Count MPV Neut % (Auto) Lymph % (Auto) [place] % (Auto) Eos % (Auto) Baso % (Auto) Nucleat RBC Rel Count Absolute Neuts (auto) Absolute Lymphs (auto) Absolute Monos (auto) Absolute Eos (auto) Absolute Basos (auto) Absolute Nucleated RBC Immature Gran % Immature Gran # PT 14.5 SEC SEC (12.0-15.0) INR 1.11 (0.83-1.16) APTT 26.3 SEC SEC (23.0-38.0) POC Sodium 136 mEq/L mEq/L (135-145) Sodium 135 mEq/L mEq/L (135-145) POC Potassium 4.5 mEq/L mEq/L (3.3-5.0) Potassium 4.8 mEq/L mEq/L (3.3-5.0) POC Chloride 101 mEq/L mEq/L (97-110) Chloride 102 mEq/L mEq/L (97-110) Carbon Dioxide 23 mEq/l mEq/l (22-31) Anion Gap 10 mEq/L mEq/L (8-16) POC BUN 30 mg/dL H mg/dL (7-23) BUN 31 mg/dL H mg/dL (7-23) Creatinine 1.0 mg/dL mg/dL (0.7-1.3) POC Creatinine 1.1 mg/dL mg/dL (0.7-1.3) Estimated GFR > 60 Glucose 213 mg/dL H mg/dL (70-100) POC Glucose 214 mg/dL H mg/dL (70-100) Calcium 8.7 mg/dL mg/dL (8.5-10.4) NT-Pro-B Natriuret Pep 792 pg/mL H pg/mL (0-125) 11/26/17 12:40 WBC 5.95 10^3/uL 10^3/uL (3.80-9.50) RBC 4.39 10^6/uL L 10^6/uL (4.40-6.38) Hgb 12.8 g/dL L g/dL (13.7-17.5) POC Hgb Hct 39.2 % L % (40.0-51.0) POC Hct MCV 89.3 fL fL (81.5-99.8) MCH 29.2 pg pg (27.9-34.1) MCHC 32.7 g/dL g/dL (32.4-36.7) RDW 15.1 % % (11.5-15.2) Plt Count 211 10^3/uL 10^3/uL (150-400) MPV 10.7 fL fL (8.7-11.7) Neut % (Auto) 55.8 % % (39.3-74.2) Lymph % (Auto) 28.7 % % (15.0-45.0) [place] % (Auto) 9.7 % % (4.5-13.0) Eos % (Auto) 4.4 % % (0.6-7.6) Baso % (Auto) 1.2 % % (0.3-1.7) Nucleat RBC Rel Count 0.0 % % (0.0-0.2) Absolute Neuts (auto) 3.32 10^3/uL 10^3/uL (1.70-6.50) Absolute Lymphs (auto) 1.71 10^3/uL 10^3/uL (1.00-3.00) Absolute Monos (auto) 0.58 10^3/uL 10^3/uL (0.30-0.80) Absolute Eos (auto) 0.26 10^3/uL 10^3/uL (0.03-0.40) Absolute Basos (auto) 0.07 10^3/uL 10^3/uL (0.02-0.10) Absolute Nucleated RBC 0.00 10^3/uL 10^3/uL (0-0.01) Immature Gran % 0.2 % % (0.0-1.1) Immature Gran # 0.01 10^3/uL 10^3/uL (0.00-0.10) PT INR APTT POC Sodium Sodium POC Potassium Potassium POC Chloride Chloride Carbon Dioxide Anion Gap POC BUN BUN Creatinine POC Creatinine Estimated GFR Glucose POC Glucose Calcium NT-Pro-B Natriuret Pep Point of Care Test Results: Chemistry 11/26/17 12:46 POC Sodium 136 mEq/L mEq/L (135-145) POC Potassium 4.5 mEq/L mEq/L (3.3-5.0) POC Chloride 101 mEq/L mEq/L (97-110) POC BUN 30 mg/dL H mg/dL (7-23) POC Creatinine 1.1 mg/dL mg/dL (0.7-1.3) POC Glucose 214 mg/dL H mg/dL (70-100) ISTAT H&H 11/26/17 12:46 POC Hgb 13.6 gm/dL L gm/dL (13.7-17.5) POC Hct 40 % % (40-51) Departure - Departure Disposition: Home, Routine, Self-Care Clinical Impression: Hemoptysis, unspecified, Pulmonary infiltrate on radiologic exam Condition: Good Instructions: Hemoptysis (ED) Additional Instructions: 1. Follow up with pulmonology as discussed and arranged by case management 2. Return to emergency depart for any chest pain, development of shortness of breath, increasing blood in your sputum, fever or chills 3. Follow up with her tool carrier as scheduled 4. Contact primary care physician Monday Referrals: LUISANA TATE [Primary Care Provider] - As per Instructions Fermín Hoffmann MD [Medical Doctor] - As per Instructions
[2017-11-26 12:53] LABS: PLATELET COUNT 211 10^3/uL (150-400)
[2017-11-26 13:01] LABS: INR 1.11 (0.83-1.16); PROTIME(PATIENT) 14.5 SEC (12.0-15.0)
[2017-11-26] MEDS ORDERED: IOPAMIDOL (ISOVUE 370) 100 ML BTL IV ONE (13:08)
[2017-11-26 14:36] VITALS: BP 116/90
--- NOTE | 2017-11-26 15:00 | ASMTCMCOM ---
CM Note CM Note Notes: Pt presented to the ED through triage with complaints of coughing up blood for the past 2 days. Pt recently admitted 11/19-11/21 for CHF exacerbation and cardiomyopathy; pt was discharged home to [place] where he lives alone. Pt has an appt w/Dr. Lara at [facility] on 12/01. Pt is being followed by [facility] until 12/22/17; see TC note from 11/21 for additional background info. This CM called and left a voicemail w/Alesha Pineda RN w/TC ([phone]) to notify of pt's ED visit and discharge/follow-up plan. Pt stable for discharge home and states he will drive himself home. This CM will follow-up w/Dr Hoffmann's (on-call digital developer) office on 11/28 to ensure patient gets scheduled for an outpatient bronchoscopy within the next week. This CM also to follow-up w/pt's PCP Dr Glory Tate at [facility] in [facility] to ensure pt is able to get rescheduled for follow-up (pt had an appt 11/24 but canceled due to exhaustion and feeling overwhelmed), sleep study for sleep apnea, and to discuss the possibility of pt getting set up w/home oxygen. Pt states he has a pulse oximeter at home and that he has dropped to 89% once but otherwise maintains 90% on RA. This CM will also relay to his PCP team that he mentioned he would like to further discuss completing an Advance Directive and learn in Medical [facility] in Dying is an option for him "when the time comes"; pt also discussed that he "is ready to meet his maker and am at peace with dying." CM to follow up on 11/28/17. Date Signed: 11/26/2017 03:00 PM Electronically Signed By:Kayleigh Beltran RN
--- NOTE | 2017-11-29 10:12 | ASMTCMCOM ---
CM Note CM Note Notes: Followed up yesterday and today w/[facility]mon[facility] ([phone], f:[phone]) and spoke w/Yumiko; Dr Mccain is able to see patient today at 1:45pm for an outpatient bronchoscopy. Yumiko was able to contact patient and confirm that this appointment time would work. Yumiko said they are able to access patient's ED visit report, etc. in [employer]. Chasidy Pineda w/[facility] ([phone]) returned this CM's call yesterday but had to leave a voicemail; this CM returned her call and had to leave another voicemail as well. This CM to continue communication/updates as needed. This CM had called and left a voicemail for [facility] in [place] early yesterday morning but have still not heard back. CM to continue to follow-up w/PC and relay pt's plan of care and follow-up needs to his PCP Dr Tate. CM available for further assistance if needed. Date Signed: 11/29/2017 10:11 AM Electronically Signed By:Kayleigh Beltran RN
--- NOTE | 2017-11-30 16:31 | ASMTCMCOM ---
CM Note CM Note Notes: 11/30/2017 Case Management Note Phone call from pt stating that he was required to provide daily sputum samples to Dr. Mccain's office thru 12/03/2017. Copay is cost prohibitive for pt. Phone call to Dr. Mccain's office [phone]. LORI Nereida to follow up with Dr. Mccain and patient. Pt call back number is [phone]. Date Signed: 11/30/2017 04:30 PM Electronically Signed By:Jessica Ceja RN
--- NOTE | 2017-12-02 21:22 | CPEKG ---
Test Reason : OPEN Blood Pressure : / mmHG Vent. Rate : 095 BPM Atrial Rate : 095 BPM P-R Int : 164 ms QRS Dur : 098 ms QT Int : 366 ms P-R-T Axes : 054 -17 121 degrees QTc Int : 460 ms Sinus rhythm Probable left atrial enlargement Borderline left axis deviation Nonspecific T abnormalities, lateral leads Confirmed by Linsey Roth ([id number]) on 12/02/2017 9:21:19 PM Referred By: Confirmed By:Linsey Roth
== END 2017-11-26 14:46 | disposition home or self-care (01) ==
DX: R04.2 Hemoptysis (principal); F17.200 Nicotine dependence, unspecified, uncomplicated; F31.9 Bipolar disorder, unspecified; F41.9 Anxiety disorder, unspecified; F43.10 Post-traumatic stress disorder, unspecified
CPT/HCPCS: 71275; 93005; 99285; Q9967; 82435-PO; 82565-PO; 82947-PO; 84132-PO; 84295-PO; 84520-PO; 85014-PO

== ENCOUNTER → 2018-05-21 | Outpatient (CLI) | payer OTHER | LOC: BHFA 15:30 | PROVIDERS: ATTEND Internal Medicine Cardiovascular Disease | DX: I50.9 Heart failure, unspecified (principal) ==

== ENCOUNTER 2018-07-05 19:02 | Emergency (ER) | payer OTHER ==
[2018-07-05] MEDS ORDERED: INSULIN REGULAR HUMAN 100 UNIT/ML UNIT IVP ONE (19:07)
--- NOTE | 2018-07-05 19:15 | EDPHY ---
H & P Time Seen by Provider: 07/05/18 19:09 HPI/ROS: CHIEF COMPLAINT: High blood sugar HISTORY OF PRESENT ILLNESS: The patient is a 68-year-old insulin dependent diabetic who was recently switched from Humulin N to Humulin R. He states that he has been somewhat afraid to use it because he has not used to it. His blood sugar was elevated today at 200 any took 6 units according to his sliding scale. When he checked it a few hours later it was 250 but he was scared to take more medicine. He presented to the [facility] where they gave him IV fluids and dropped to 230. He complains of slight nausea but no recent infections. No vomiting. No diarrhea. No recent trauma. Severity: Moderate Modifying factors: The none REVIEW OF SYSTEMS: Constitutional: denies: chills, fever, recent illness, recent injury EENTM: denies: blurred vision, double vision, nose congestion Respiratory: denies: cough, shortness of breath Cardiac: denies: chest pain, irregular heart rate, lightheadedness, palpitations Gastrointestinal/Abdominal: See HPI Genitourinary: denies: dysuria, frequency, hematuria, pain Musculoskeletal: denies: joint pain, muscle pain Skin: denies: lesions, rash, jaundice, bruising Neurological: denies: headache, numbness, paresthesia, tingling, dizziness, weakness Hematologic/Lymphatic: denies: blood clots, easy bleeding, easy bruising Immunologic/allergic: denies: HIV/AIDS, transplant 10 systems reviewed and negative except as noted EXAM: GENERAL: Well-appearing, well-nourished and in no acute distress. HEAD: Atraumatic, normocephalic. EYES: Pupils equal round and reactive to light, extraocular movements intact, sclera anicteric, conjunctiva are normal. ENT: TMs normal, nares patent, oropharynx clear without exudates. Moist mucous membranes. NECK: Normal range of motion, supple without lymphadenopathy or JVD. LUNGS: Breath sounds clear to auscultation bilaterally and equal. No wheezes rales or rhonchi. HEART: Regular rate and rhythm without murmurs, rubs or gallops. ABDOMEN: Soft, nontender, normoactive bowel sounds. No guarding, no rebound. No masses appreciated. BACK: No CVA tenderness, no spinal tenderness, step-offs or deformities EXTREMITIES: Normal range of motion, no pitting or edema. No clubbing or cyanosis. NEUROLOGICAL: Cranial nerves II through XII grossly intact. Normal speech, normal gait. 5/5 strength, normal movement in all extremities, normal sensation , normal reflexes PSYCH: Normal mood, normal affect. SKIN: Warm, dry, normal turgor, no visible rashes or lesions. Source: Patient, EMS Exam Limitations: No limitations - Personal History Current Tetanus/Diphtheria Vaccine: Yes Tetanus Vaccine Date: within 10 YEARS - Medical/Surgical History Hx Asthma: No Hx Chronic Respiratory Disease: No Hx Diabetes: Yes Hx Cardiac Disease: Yes Hx Renal Disease: No Hx Cirrhosis: No Hx Alcoholism: Yes Hx HIV/AIDS: No Hx Splenectomy or Spleen Trauma: No Other PMH: 1. atrial tachycardia, ablation, afib 2. pacemaker/defibrillator, 3. bipolar 4. CHF 5. panic attacks, anxiety 6. high cholesterol 7. cardiomyopathy, 8. gerd 9.DIABETES 10. PTSD. CHF. - Family History Significant Family History: No pertinent family hx - Social History Smoking Status: Current some day smoker Alcohol Use: None Constitutional: Initial Vital Signs Temperature (C) 36.4 C 07/05/18 19:09 Heart Rate 87 07/05/18 19:09 Respiratory Rate 16 07/05/18 19:09 O2 Sat (%) 96 07/05/18 19:09 O2 Delivery Mode Room Air Allergies/Adverse Reactions: Penicillins Allergy (Verified 11/26/17 11:59) Pt reports rxn as child- unsure of rxn Home Medications: Medication Instructions Recorded Albuterol [Proventil Inhaler HFA 1 - 2 puffs IH Q4H PRN 11/18/17 (*)] Aspirin [Aspirin 81mg (*)] 81 mg PO HS 11/18/17 Cyclobenzaprine [Flexeril 10 MG 10 mg PO BID 11/18/17 (*)] Diclofenac Sodium [Voltaren 75 MG 75 mg PO HS 11/18/17 (*)] Furosemide [Lasix 20 MG (*)] 20 mg PO DAILY 11/18/17 Insulin NPH Human [HumuLIN N] 50 unit SC HS 11/18/17 Omeprazole Magnesium 20 mg PO HS 11/18/17 Pramipexole Di-HCl [Mirapex 0.25 1.25 mg PO HS 11/18/17 mg (*)] QUEtiapine FUMARATE [Seroquel 100 200 mg PO DAILY 11/18/17 mg (*)] QUEtiapine FUMARATE [Seroquel 100 500 mg PO HS 11/18/17 mg (*)] Carvedilol [Coreg (*)] 3.125 mg PO BIDMEAL #60 tab 11/21/17 Lisinopril [Zestril 2.5 mg (*)] 2.5 mg PO DAILY #30 tab 11/21/17 Medical Decision Making ED Course/Re-evaluation: Will check labs, treat with insulin and re-evaluate. Otherwise stable vital signs and benign exam. 8:40 p.m. patient's glucose is 123. He has not in DKA. We discussed at length his insulin sliding scale and home regimen. He feels more confident and is ready to go home. He declines further workup or testing. Differential Diagnosis: Partial list of the Differential diagnosis considered include but were not limited to; hyperglycemia, DKA and although unlikely based on the history and physical exam, I also considered dehydration, infection, gastroenteritis. - Data Points Laboratory Results: Laboratory Results 07/05/18 19:30 07/05/18 19:30 07/05/18 07/05/18 07/05/18 20:31 19:47 19:30 WBC RBC Hgb Hct MCV MCH MCHC RDW Plt Count MPV Neut % (Auto) Lymph % (Auto) [place] % (Auto) Eos % (Auto) Baso % (Auto) Nucleat RBC Rel Count Absolute Neuts (auto) Absolute Lymphs (auto) Absolute Monos (auto) Absolute Eos (auto) Absolute Basos (auto) Absolute Nucleated RBC Immature Gran % Immature Gran # Puncture Site VENOUS Patient Temperature 37.0 DEGREES DEGREES VBG pH 7.41 (7.31-7.42) VBG HCO3 22 mEQ/L mEQ/L (22-26) VBG Total CO2 24 mEq/L mEq/L (21-27) VBG O2 Saturation 81 % H % (65-75) VBG Base Excess -1.3 mEq/L mEq/L (-2.5-2.5) Mixed VBG pCO2 37 mmHg L mmHg (40-44) Mixed VBG pO2 49 mmHG H mmHG (35-40) Sodium 136 mEq/L mEq/L (135-145) Potassium 4.1 mEq/L mEq/L (3.5-5.2) Chloride 104 mEq/L mEq/L (97-110) Carbon Dioxide 22 mEq/l mEq/l (22-31) Anion Gap 10 mEq/L mEq/L (6-14) BUN 27 mg/dL H mg/dL (7-23) Creatinine 0.8 mg/dL mg/dL (0.7-1.3) Estimated GFR > 60 Glucose 173 mg/dL H mg/dL (70-100) POC Glucose 127 mg/dL H mg/dL (70-100) Calcium 9.0 mg/dL mg/dL (8.5-10.4) 07/05/18 19:30 WBC 7.63 10^3/uL 10^3/uL (3.80-9.50) RBC 4.81 10^6/uL 10^6/uL (4.40-6.38) Hgb 14.1 g/dL g/dL (13.7-17.5) Hct 42.6 % % (40.0-51.0) MCV 88.6 fL fL (81.5-99.8) MCH 29.3 pg pg (27.9-34.1) MCHC 33.1 g/dL g/dL (32.4-36.7) RDW 14.6 % % (11.5-15.2) Plt Count 236 10^3/uL 10^3/uL (150-400) MPV 9.7 fL fL (8.7-11.7) Neut % (Auto) 59.3 % % (39.3-74.2) Lymph % (Auto) 28.3 % % (15.0-45.0) [place] % (Auto) 8.5 % % (4.5-13.0) Eos % (Auto) 2.6 % % (0.6-7.6) Baso % (Auto) 0.9 % % (0.3-1.7) Nucleat RBC Rel Count 0.0 % % (0.0-0.2) Absolute Neuts (auto) 4.52 10^3/uL 10^3/uL (1.70-6.50) Absolute Lymphs (auto) 2.16 10^3/uL 10^3/uL (1.00-3.00) Absolute Monos (auto) 0.65 10^3/uL 10^3/uL (0.30-0.80) Absolute Eos (auto) 0.20 10^3/uL 10^3/uL (0.03-0.40) Absolute Basos (auto) 0.07 10^3/uL 10^3/uL (0.02-0.10) Absolute Nucleated RBC 0.00 10^3/uL 10^3/uL (0-0.01) Immature Gran % 0.4 % % (0.0-1.1) Immature Gran # 0.03 10^3/uL 10^3/uL (0.00-0.10) Puncture Site Patient Temperature VBG pH VBG HCO3 VBG Total CO2 VBG O2 Saturation VBG Base Excess Mixed VBG pCO2 Mixed VBG pO2 Sodium Potassium Chloride Carbon Dioxide Anion Gap BUN Creatinine Estimated GFR Glucose POC Glucose Calcium Medications Given: Discontinued Medications Insulin Human Regular (Humulin R) 5 unit IVP EDNOW ONE Stop: 07/05/18 19:08 Last Admin: 07/05/18 19:27 Dose: 5 units Point of Care Test Results: Chemistry 07/05/18 20:31 POC Glucose 127 mg/dL H mg/dL (70-100) Departure - Departure Disposition: Home, Routine, Self-Care Clinical Impression: Hyperglycemia Condition: Fair Instructions: Diabetic Hyperglycemia (ED) Referrals: Patient,NotPresent [Unknown] - As per Instructions LUISANA CHATTERJEE [Primary Care Provider] - 2-3 days, call for appt.
[2018-07-05 19:45] LABS: PLATELET COUNT 236 10^3/uL (150-400)
[2018-07-05 21:15] VITALS: BP 160/105
== END 2018-07-05 21:14 | disposition home or self-care (01) ==
LOC: EDUNIT#
DX: E11.65 Type 2 diabetes mellitus with hyperglycemia (principal); E78.00 Pure hypercholesterolemia, unspecified; F41.9 Anxiety disorder, unspecified; F31.9 Bipolar disorder, unspecified; F43.10 Post-traumatic stress disorder, unspecified; Z95.0 Presence of cardiac pacemaker
CPT/HCPCS: 96374; 99284; J1815

== ENCOUNTER 2018-07-24 23:55 | Emergency (ER) | payer OTHER ==
[2018-07-24 23:59] VITALS: BP 121/81
--- NOTE | 2018-07-25 00:24 | EDPHY ---
H & P Stated Complaint: Restless leg syndrome, "meds not working for several months" - Personal History Current Tetanus Diphtheria and Acellular Pertussis (TDAP): Yes Tetanus Vaccine Date: within 10 YEARS - Medical/Surgical History Hx Asthma: No Hx Chronic Respiratory Disease: No Hx Diabetes: Yes Hx Cardiac Disease: Yes Hx Renal Disease: No Hx Cirrhosis: No Hx Alcoholism: Yes Hx HIV/AIDS: No Hx Splenectomy or Spleen Trauma: No Other PMH: 1. atrial tachycardia, ablation, afib 2. pacemaker/defibrillator, 3. bipolar 4. CHF 5. panic attacks, anxiety 6. high cholesterol 7. cardiomyopathy, 8. gerd 9.DIABETES 10. PTSD 11. CHF 12. restless leg. - Social History Smoking Status: Current some day smoker Constitutional: Initial Vital Signs Temperature (C) 36.7 C 07/24/18 23:56 Heart Rate 95 07/24/18 23:56 Respiratory Rate 17 07/24/18 23:56 Blood Pressure 121/81 H 07/24/18 23:56 O2 Sat (%) 95 07/24/18 23:56 O2 Delivery Mode Room Air Allergies/Adverse Reactions: Penicillins Allergy (Verified 07/24/18 23:56) Pt reports rxn as child- unsure of rxn Home Medications: Medication Instructions Recorded Albuterol [Proventil Inhaler HFA 1 - 2 puffs IH Q4H PRN 11/18/17 (*)] Aspirin [Aspirin 81mg (*)] 81 mg PO HS 11/18/17 Cyclobenzaprine [Flexeril 10 MG 10 mg PO BID 11/18/17 (*)] Diclofenac Sodium [Voltaren 75 MG 75 mg PO HS 11/18/17 (*)] Furosemide [Lasix 20 MG (*)] 20 mg PO DAILY 11/18/17 Insulin NPH Human [HumuLIN N] 50 unit SC HS 11/18/17 Omeprazole Magnesium 20 mg PO HS 11/18/17 Pramipexole Di-HCl [Mirapex 0.25 1.25 mg PO HS 11/18/17 mg (*)] QUEtiapine FUMARATE [Seroquel 100 200 mg PO DAILY 11/18/17 mg (*)] QUEtiapine FUMARATE [Seroquel 100 500 mg PO HS 11/18/17 mg (*)] Carvedilol [Coreg (*)] 3.125 mg PO BIDMEAL #60 tab 11/21/17 Lisinopril [Zestril 2.5 mg (*)] 2.5 mg PO DAILY #30 tab 11/21/17 Insulin Regular Human 07/25/18 Departure - Departure Referrals: LUISANA CHATTERJEE [Primary Care Provider] - As per Instructions
== END 2018-07-25 00:31 | disposition left against medical advice (07) ==
DX: Z53.21 Procedure and treatment not carried out due to patient leaving prior to being seen by health care provider (principal)

== ENCOUNTER 2018-07-25 00:51 | Emergency (ER) | payer OTHER ==
--- NOTE | 2018-07-25 01:51 | EDPHY ---
H & P Stated Complaint: came from [facility]-ED c/o restless leg inc. for months- PCP apt next wk Time Seen by Provider: 07/25/18 01:04 HPI/ROS: CHIEF COMPLAINT: Leg pain when he tried to sleep tonight HISTORY OF PRESENT ILLNESS: This is a 68-year-old male who lives in [place], [place] [address] [place] [place] He is down here looking in on his elderly, 94-year-old mother as he does weekly. Evidently he has had come down much earlier than usual as he usually is down here on Fridays and into the weekend to manage issues for his mother. Further, he does describe quite a few errands to run tomorrow which includes going up to [place]. This is relevant as he has some tramadol up there that he got from some untoward sources but that he states he only takes 1 ate the pill and finds that is just when he needs tonight as ameliorate his symptoms-see below-thus he is seeking only 1 night of management and even states that all he needs is a 1/8 tablet. P: He has pain in both legs which is not relieved by walking, however always occurs at night worst 2 to 3 times a week in particular such as tonight Q: A simple pain R: Bilateral cast right equals left S: Moderate to severe, unable to sleep, feels exhausted T: Always at night when he times to go back down to sleep. He relates that he got started on the pramipexole approximately 8 months ago. He takes 5 tablets at bedtime along with his Seroquel. There is in only a minimal increase in the pramipexole dosing from 4-5 tablets. As he has had a whole host of other more serious problems including diabetic dyscontrol as well as issues related to his congestive heart failure, the rest is like has not been something that is talked about with his family physician for months. He is scheduled to see his family physician approximately 9 days time at which time he of seek a more efficient resolution of symptoms. As the fact that this is more of a pain rather than movement problem in point of fact he does speak late that he has does have a history of neuropathy. However though symptoms are different than what he experiences tonight and were more constant rather than min in the bedtime timeframe such as when he has tonight. Further he did have a steroid injection with ultrasound guidance by a research lab assistant into the mid calf overlying the nerve approximately 2 months ago which had markedly improved his peripheral neuropathy. 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 [place] drug monitoring program queried and indeed while he is in the database there has been no benzodiazepine or tramadol or narcotic activity in a year Nonetheless he has been able to get hold of tramadol, he states he has about 10 of them up there and [place] where he lives and as it is practical for him to go up there-it is actually [place], who knows how the roads are up there, probably dangerous. Thus he considers tramadol 1 8 of a tablet to be his go to for tonight. REVIEW OF SYSTEMS: Constitutional: No fever, no chills. Cardiovascular: No chest pain, no palpitations. Respiratory: No cough, shortness of breath, or wheezing. Musculoskeletal: No back pain. No swelling or calf pain. No current prior peripheral edema despite his EF being in the 5-10 range somewhere along the line 2 years ago Skin: No rashes. ] Source: Patient Exam Limitations: No limitations - Personal History Tetanus Vaccine Date: within 10 YEARS - Medical/Surgical History Hx Asthma: No Hx Chronic Respiratory Disease: No Hx Diabetes: Yes Hx Cardiac Disease: Yes Hx Renal Disease: No Hx Cirrhosis: No Hx Alcoholism: Yes Hx HIV/AIDS: No Hx Splenectomy or Spleen Trauma: No Other PMH: 1. atrial tachycardia, ablation, afib 2. pacemaker/defibrillator, 3. bipolar 4. CHF 5. panic attacks, anxiety 6. high cholesterol 7. cardiomyopathy, 8. gerd 9.DIABETES 10. PTSD 11. CHF 12. restless leg. - Family History Significant Family History: No pertinent family hx - Social History Smoking Status: Current some day smoker Alcohol Use: None Drug Use: Other (Had a problem with chronic pain and subsequent chronic narcotic use which he no longer is involved with) - Physical Exam Exam: General Appearance: Alert, no distress. Afebrile. Normal phonation. No respiratory distress. Eyes: Pupils equal and round no pallor or injection. No icterus ENT, Mouth: Mucous membranes slightly dry Pharynx without erythema or exudate. TM Clear. Neck: No JVD. Respiratory: No labored breathing Cardiovascular: Regular rate and rhythm. Neurological: Ox3. No motor weakness. Sensation intact. Gait nl. Skin: Warm and dry, no rashes. Capillary refills intact. Musculoskeletal: No joint swelling. Extremities: No edema. Homans sign negative. No cords. There is no hair present on the toes however I do not know whether there ever was. His pulses are: As follows: Right DP equals 2+ Right PT equals 2+ Left PT equals 1+ Left DP equals 2+ Psychiatric: Normal affect. Patient is oriented X 3. There is no agitation Constitutional: Initial Vital Signs Temperature (C) 36.6 C 07/25/18 01:04 Heart Rate 84 07/25/18 01:04 Respiratory Rate 18 07/25/18 01:04 Blood Pressure 109/88 H 07/25/18 01:04 O2 Sat (%) 96 07/25/18 01:04 O2 Delivery Mode Room Air Allergies/Adverse Reactions: Penicillins Allergy (Verified 07/24/18 23:56) Pt reports rxn as child- unsure of rxn Home Medications: Medication Instructions Recorded Aspirin [Aspirin 81mg (*)] 81 mg PO HS 11/18/17 Cyclobenzaprine [Flexeril 10 MG 10 mg PO BID 11/18/17 (*)] Diclofenac Sodium [Voltaren 75 MG 75 mg PO HS 11/18/17 (*)] Furosemide [Lasix 20 MG (*)] 20 mg PO DAILY 11/18/17 Insulin NPH Human [HumuLIN N] 50 unit SC HS 11/18/17 Omeprazole Magnesium 20 mg PO HS 11/18/17 Pramipexole Di-HCl [Mirapex 0.25 1.25 mg PO HS 11/18/17 mg (*)] QUEtiapine FUMARATE [Seroquel 100 200 mg PO DAILY 11/18/17 mg (*)] QUEtiapine FUMARATE [Seroquel 100 500 mg PO HS 11/18/17 mg (*)] Carvedilol [Coreg (*)] 3.125 mg PO BIDMEAL #60 tab 11/21/17 Lisinopril [Zestril 2.5 mg (*)] 2.5 mg PO DAILY #30 tab 11/21/17 Insulin Regular Human 07/25/18 Medical Decision Making ED Course/Re-evaluation: We discussed at length the merits of initiating some emergent treatment tonight for him as well as the risk given his background. See the following paragraph that goes through my thought process and concerns at length. He has been warmed regarding his prior episodes of addiction in the past in the setting of his difficulty with his back in chronic pain. However, he himself and brought that up and noted his difficulties. He further does not believe he has had a substantial risk given that he is requesting and 04/03 dose of 50 mg tramadol would be sufficient vis-a-vis 6 mg. I do not see initiating such therapy per his request as being problematic. We did discuss the significant features of the ongoing narcotic [place]. Regarding restless leg: -unclear as to whether he actually has rest of psych per se. He describes more discomfort rather than movement issues. Certainly not a vitreal leg tapping. However the circadian rhythm associated symptoms such as being only at night, is strongly suggestive of restless leg syndrome. -however he does not a circadian rhythm issue with respect to this, which is the Hallmark of restless leg, vis-a-vis it only at night. -further, his PCP in the past has decided that is what is going on -lastly, when he had had neuropathy issues and recently had an ultrasound- guided steroid injection in both calves, approximately 2-3 months ago and has not noted distinct dramatic improvement in that underlying symptomatology as being distinct and different from today's process that he is complaining about -he himself notes that the tramadol does put him at risk given his prior history of narcotic issues with respect to his chronic low back pain. -I am concerned that the Seroquel as a contributing factor with respect to the restless leg. Nonetheless, the Seroquel was how he was able to taper off the Klonopin, somewhere along the line, in the last year, something he was able to do over 3 months time -thus I find him between a rock and a hard place with respect to his long-term "restless leg" treatment. -however, we will not solve this issue tonight as the process is clearly this is one that would be 'tincture of time' and 'trial and error' as initiated by his family physician, who he sees in approximately 9 days time - he himself notes that he has access to the tramadol as he has some up at his house the [place]-see information regarding his social aspects of [place] - Thus, he will be giving a single tablet of tramadol that will have him cut up in and to take tonight Differential Diagnosis: Diagnostic considerations include, but are not limited to, the following, 5this represents a partial list of diagnoses considered These considerations are based on history, physical exam, past history, reassessment and diagnostic testing: Peripheral neuropathy, restless leg syndrome, anxiety Departure - Departure Disposition: Home, Routine, Self-Care Clinical Impression: Restless legs syndrome Condition: Good Instructions: Restless Legs Syndrome (ED) Additional Instructions: Go ahead an on the bad nights take your Tramadol. One eighth of a tablet is a good, minimal dose. HOWEVER, DO NOT TAKE THE SAME EVENING THAT YOU TAKE YOUR FLEXERIL - as the combination may cause seizures. See your family doctor as planned next week. Referrals: LUISANA CHATTERJEE [Primary Care Provider] - As per Instructions
[2018-07-25] MEDS: traMADol 50 MG TAB PO ONE (01:54)
[2018-07-25 02:06] VITALS: BP 134/62
== END 2018-07-25 02:01 | disposition home or self-care (01) ==
LOC: CED 00:51
DX: G25.81 Restless legs syndrome (principal); F17.200 Nicotine dependence, unspecified, uncomplicated
CPT/HCPCS: 99283-ER

== ENCOUNTER 2018-07-30 00:53 | Emergency (ER) | payer OTHER ==
[2018-07-30] MEDS ORDERED: LORazepam 0.5 MG TAB PO ONE (01:31)
--- NOTE | 2018-07-30 02:12 | EDPHY ---
H & P Stated Complaint: c/o of restless leg Time Seen by Provider: 07/30/18 01:23 HPI/ROS: Chief Complaint: Restless legs HPI: 68-year-old man with a history of bipolar disorder, restless leg syndrome is presenting complaining of worsening restless legs. Patient has been seen 3 times this week in the emergency department. Patient states he was seen by his primary care doctor on Monday and they have eliminated some his medications in attempt to ascertain the cause. Patient states that this evening when going to bed he had increasing restless legs and felt very uncomfortable so I called 911. He did take 400 mg of Seroquel just before going to bed which is less than his usual. He has been off his Seroquel for 2 days. No fevers or chills. No cough. No new numbness or weakness. No chest pain or shortness of breath. Patient states that after calling 911 and coming down to the hospital he is actually feeling much better. He is mild to moderate discomfort at this time. ROS: 10 systems were reviewed and were negative except those elements noted in the HPI. PMH: Bipolar disorder, restless leg syndrome, hypertension, Social History: No smoking, no alcohol, no recreational drug use Family History: non-contributory Physical Exam: Gen: Awake, Alert, No Distress HEENT: Nose: no rhinorrhea Eyes: PERRLA, EOMI Mouth: Moist mucosa Neck: Supple, no JVD Chest: nontender, lungs clear to auscultation Heart: S1, S2 normal, no murmur Abd: Soft, non-tender, no guarding Back: no CVA tenderness, no midline tenderness Ext: no edema, non-tender Skin: no rash Neuro: CN II-XII intact, Sensation grossly intact, Strength 5/5 in bilateral upper and lower extremities - Personal History Current Tetanus Diphtheria and Acellular Pertussis (TDAP): Yes Tetanus Vaccine Date: within 10 YEARS - Medical/Surgical History Hx Asthma: No Hx Chronic Respiratory Disease: No Hx Diabetes: Yes Hx Cardiac Disease: Yes Hx Renal Disease: No Hx Cirrhosis: No Hx Alcoholism: Yes Hx HIV/AIDS: No Hx Splenectomy or Spleen Trauma: No Other PMH: 1. atrial tachycardia, ablation, afib 2. pacemaker/defibrillator, 3. bipolar 4. CHF 5. panic attacks, anxiety 6. high cholesterol 7. cardiomyopathy, 8. gerd 9.DIABETES 10. PTSD 11. CHF 12. restless leg. - Social History Smoking Status: Current some day smoker Constitutional: Initial Vital Signs Temperature (C) 36.9 C 07/30/18 00:58 Heart Rate 84 07/30/18 00:58 Respiratory Rate 18 07/30/18 00:58 Blood Pressure 124/86 H 07/30/18 00:58 O2 Sat (%) 100 07/30/18 00:58 O2 Delivery Mode Room Air Allergies/Adverse Reactions: Penicillins Allergy (Verified 07/24/18 23:56) Pt reports rxn as child- unsure of rxn Home Medications: Medication Instructions Recorded Aspirin [Aspirin 81mg (*)] 81 mg PO HS 11/18/17 Cyclobenzaprine [Flexeril 10 MG 10 mg PO BID 11/18/17 (*)] Diclofenac Sodium [Voltaren 75 MG 75 mg PO HS 11/18/17 (*)] Furosemide [Lasix 20 MG (*)] 20 mg PO DAILY 11/18/17 Insulin NPH Human [HumuLIN N] 50 unit SC HS 11/18/17 Omeprazole Magnesium 20 mg PO HS 11/18/17 Pramipexole Di-HCl [Mirapex 0.25 1.25 mg PO HS 11/18/17 mg (*)] QUEtiapine FUMARATE [Seroquel 100 200 mg PO DAILY 11/18/17 mg (*)] QUEtiapine FUMARATE [Seroquel 100 500 mg PO HS 11/18/17 mg (*)] Carvedilol [Coreg (*)] 3.125 mg PO BIDMEAL #60 tab 11/21/17 Lisinopril [Zestril 2.5 mg (*)] 2.5 mg PO DAILY #30 tab 11/21/17 Insulin Regular Human 07/25/18 traMADol 07/30/18 Medical Decision Making ED Course/Re-evaluation: 68-year-old male presenting with symptoms of restless leg syndrome he is feeling improved here. I have given him a small dose of Ativan. He is resting comfortably. Plan will be for discharge with follow-up with primary care physician. - Data Points Medications Given: Discontinued Medications Lorazepam (Ativan) 0.5 mg PO EDNOW ONE Stop: 07/30/18 01:32 Last Admin: 07/30/18 01:36 Dose: 0.5 mg Departure - Departure Disposition: Home, Routine, Self-Care Clinical Impression: Restless leg syndrome Condition: Good Instructions: Restless Legs Syndrome (ED) Additional Instructions: Follow up with primary care physician in 2-3 days for further evaluation. Referrals: LUISANA CHATTERJEE [Primary Care Provider] - As per Instructions
[2018-07-30 02:39] VITALS: BP 113/86
== END 2018-07-30 02:39 | disposition home or self-care (01) ==
LOC: EDUNIT#
DX: G25.81 Restless legs syndrome (principal); F31.9 Bipolar disorder, unspecified; I10 Essential (primary) hypertension; E11.9 Type 2 diabetes mellitus without complications; Z79.4 Long term (current) use of insulin

== ENCOUNTER 2018-07-31 14:29 | Emergency (ER) | payer OTHER ==
--- NOTE | 2018-07-31 14:37 | EDPHY ---
H & P Stated Complaint: M1 Time Seen by Provider: 07/31/18 14:30 HPI/ROS: CHIEF COMPLAINT: Suicidal thoughts HISTORY OF PRESENT ILLNESS: The patient is a 68-year-old man with a history of bipolar, PTSD, CHF, AFib post ablation, AICD type 2 diabetes and restless leg syndrome who lives in [place]. He presented to the clinic today stating that he was extremely paranoid and anxious about his prostate level being high last time was checked at Dr. Worrell is office. Also that they noticed some lung nodules in his lungs in the fall and he has not yet followed up about these. At the clinic he was placed on a M1 hold because he told them that he felt like he was dangers to be by himself in that he might kill himself if he does not get some reassurance about his condition. He admits to using marijuana recently but denies alcohol or other drugs. No chest pain or shortness of breath. No abdominal pain or GI symptoms. Severity: Moderate Modifying factors: None REVIEW OF SYSTEMS: Constitutional: denies: chills, fever, recent illness, recent injury EENTM: denies: blurred vision, double vision, nose congestion Respiratory: denies: cough, shortness of breath Cardiac: denies: chest pain, irregular heart rate, lightheadedness, palpitations Gastrointestinal/Abdominal: denies: abdominal pain, diarrhea, nausea, vomiting, blood streaked stools Genitourinary: denies: dysuria, frequency, hematuria, pain Musculoskeletal: denies: joint pain, muscle pain Skin: denies: lesions, rash, jaundice, bruising Neurological: See HPI denies: headache, numbness, paresthesia, tingling, dizziness, weakness Hematologic/Lymphatic: denies: blood clots, easy bleeding, easy bruising Immunologic/allergic: denies: HIV/AIDS, transplant 10 systems reviewed and negative except as noted EXAM: GENERAL: Somewhat disheveled, well-nourished and in moderate distress. HEAD: Atraumatic, normocephalic. EYES: Pupils equal round and reactive to light, extraocular movements intact, sclera anicteric, conjunctiva are normal. ENT: TMs normal, nares patent, oropharynx clear without exudates. Moist mucous membranes. NECK: Normal range of motion, supple without lymphadenopathy or JVD. LUNGS: Breath sounds clear to auscultation bilaterally and equal. No wheezes rales or rhonchi. HEART: Regular rate and rhythm without murmurs, rubs or gallops. ABDOMEN: Soft, nontender, normoactive bowel sounds. No guarding, no rebound. No masses appreciated. BACK: No CVA tenderness, no spinal tenderness, step-offs or deformities EXTREMITIES: Normal range of motion, no pitting or edema. No clubbing or cyanosis. NEUROLOGICAL: Cranial nerves II through XII grossly intact. Normal speech, normal gait. 5/5 strength, normal movement in all extremities, normal sensation , normal reflexes PSYCH: Anxious, trouble with logical thinking SKIN: Warm, dry, normal turgor, no visible rashes or lesions. Source: Patient Exam Limitations: No limitations - Personal History Tetanus Vaccine Date: within 10 YEARS - Medical/Surgical History Hx Asthma: No Hx Chronic Respiratory Disease: No Hx Diabetes: Yes Hx Cardiac Disease: Yes Hx Renal Disease: No Hx Cirrhosis: No Hx Alcoholism: Yes Hx HIV/AIDS: No Hx Splenectomy or Spleen Trauma: No Other PMH: 1. atrial tachycardia, ablation, afib 2. pacemaker/defibrillator, 3. bipolar 4. CHF 5. panic attacks, anxiety 6. high cholesterol 7. cardiomyopathy, 8. gerd 9.DIABETES 10. PTSD 11. CHF 12. restless leg. - Social History Smoking Status: Current some day smoker Alcohol Use: Sober Drug Use: None Constitutional: Initial Vital Signs Temperature (C) 36.8 C 07/31/18 14:32 Heart Rate 78 07/31/18 14:32 Respiratory Rate 18 07/31/18 14:32 Blood Pressure 167/110 H 07/31/18 14:32 O2 Sat (%) 98 07/31/18 14:32 O2 Delivery Mode Room Air Allergies/Adverse Reactions: Penicillins Allergy (Verified 07/31/18 14:32) Pt reports rxn as child- unsure of rxn Home Medications: Medication Instructions Recorded Aspirin [Aspirin 81mg (*)] 81 mg PO HS 11/18/17 Cyclobenzaprine [Flexeril 10 MG 10 mg PO BID 11/18/17 (*)] Diclofenac Sodium [Voltaren 75 MG 75 mg PO HS 11/18/17 (*)] Furosemide [Lasix 20 MG (*)] 20 mg PO DAILY 11/18/17 Insulin NPH Human [HumuLIN N] 50 unit SC HS 11/18/17 Omeprazole Magnesium 20 mg PO HS 11/18/17 Pramipexole Di-HCl [Mirapex 0.25 1.25 mg PO HS 11/18/17 mg (*)] QUEtiapine FUMARATE [Seroquel 100 200 mg PO DAILY 11/18/17 mg (*)] QUEtiapine FUMARATE [Seroquel 100 500 mg PO HS 11/18/17 mg (*)] Carvedilol [Coreg (*)] 3.125 mg PO BIDMEAL #60 tab 11/21/17 Lisinopril [Zestril 2.5 mg (*)] 2.5 mg PO DAILY #30 tab 11/21/17 Insulin Regular Human 07/25/18 traMADol 07/30/18 LORazepam [Ativan 1 mg (RX)] 1 mg PO Q6-8PRN PRN #10 tab 07/31/18 Medical Decision Making ED Course/Re-evaluation: 6:15 p.m. the patient feels completely better after Ativan. He states that he does not actually feel suicidal and does not want to harm himself or anyone else. He is asking to go home. He states that he was having an anxiety attack because of his medical problems. He will follow up with his primary doctor and also encouraged him to follow up with mental health clinic in the next day or 2. He agrees to do this. He states that he recently stopped his cervical because was causing restless leg syndrome. He is asking for a short prescription of Ativan for anxiety attacks. Will provide this and reiterated the points of following up with mental health and his primary care doctor. Differential Diagnosis: Partial list of the Differential diagnosis considered include but were not limited to; anxiety, PTSD, bipolar and although unlikely based on the history and physical exam, I also considered head injury, infection, suicidality, homicidality. I discussed these differential diagnoses and the plan with the patient as well as the usual and expected course. The patient understands that the diagnosis is provisional and that in medicine we are not always correct and that further workup is often warranted. Usual and customary warnings were given. All of the patient's questions were answered. The patient was instructed to return to the emergency department should the symptoms at all worsen or return, otherwise to followup with the physician as we discussed. - Data Points Laboratory Results: Laboratory Results 07/31/18 14:55 07/31/18 14:55 07/31/18 07/31/18 07/31/18 14:55 14:55 14:55 WBC 10.66 10^3/uL H 10^3/uL (3.80-9.50) RBC 5.47 10^6/uL 10^6/uL (4.40-6.38) Hgb 16.0 g/dL g/dL (13.7-17.5) Hct 47.7 % % (40.0-51.0) MCV 87.2 fL fL (81.5-99.8) MCH 29.3 pg pg (27.9-34.1) MCHC 33.5 g/dL g/dL (32.4-36.7) RDW 14.6 % % (11.5-15.2) Plt Count 322 10^3/uL 10^3/uL (150-400) MPV 9.6 fL fL (8.7-11.7) Neut % (Auto) 63.0 % % (39.3-74.2) Lymph % (Auto) 25.3 % % (15.0-45.0) Haakon % (Auto) 8.2 % % (4.5-13.0) Eos % (Auto) 2.1 % % (0.6-7.6) Baso % (Auto) 0.8 % % (0.3-1.7) Nucleat RBC Rel Count 0.0 % % (0.0-0.2) Absolute Neuts (auto) 6.73 10^3/uL H 10^3/uL (1.70-6.50) Absolute Lymphs (auto) 2.70 10^3/uL 10^3/uL (1.00-3.00) Absolute Monos (auto) 0.87 10^3/uL H 10^3/uL (0.30-0.80) Absolute Eos (auto) 0.22 10^3/uL 10^3/uL (0.03-0.40) Absolute Basos (auto) 0.08 10^3/uL 10^3/uL (0.02-0.10) Absolute Nucleated RBC 0.00 10^3/uL 10^3/uL (0-0.01) Immature Gran % 0.6 % % (0.0-1.1) Immature Gran # 0.06 10^3/uL 10^3/uL (0.00-0.10) Sodium 131 mEq/L L mEq/L (135-145) Potassium 3.9 mEq/L mEq/L (3.5-5.2) Chloride 96 mEq/L L mEq/L (97-110) Carbon Dioxide 20 mEq/l L mEq/l (22-31) Anion Gap 15 mEq/L H mEq/L (6-14) BUN 31 mg/dL H mg/dL (7-23) Creatinine 0.8 mg/dL mg/dL (0.7-1.3) Estimated GFR > 60 Glucose 189 mg/dL H mg/dL (70-100) Calcium 10.2 mg/dL mg/dL (8.5-10.4) Urine Opiates Screen NEGATIVE (NEGATIVE) Urine Barbiturates NEGATIVE (NEGATIVE) Ur Phencyclidine Scrn NEGATIVE (NEGATIVE) Ur Amphetamine Screen NEGATIVE (NEGATIVE) U Benzodiazepines Scrn NEGATIVE (NEGATIVE) Urine Cocaine Screen NEGATIVE (NEGATIVE) U Marijuana (THC) Screen NON-NEGATIVE H (NEGATIVE) Ethyl Alcohol < 10 mg/dL mg/dL (0-10) Medications Given: Discontinued Medications Lorazepam (Ativan Injection) 1 mg IVP EDNOW ONE Stop: 07/31/18 14:42 Last Admin: 07/31/18 15:01 Dose: Not Given Lorazepam (Ativan Injection) 1 mg IVP EDNOW ONE Stop: 07/31/18 16:41 Last Admin: 07/31/18 16:44 Dose: 1 mg Departure - Departure Disposition: Home, Routine, Self-Care Clinical Impression: Bipolar 1 disorder, Anxiety Condition: Fair Instructions: Bipolar Disorder (ED), Anxiety (ED) Referrals: Patient,NotPresent [Unknown] - As per Instructions [facility] [Cl[facility]] - 1-2 days without fail [facility] - 2-3 days, call for appt. Prescriptions: LORazepam [Ativan 1 mg (RX)] 1 mg PO Q6-8PRN PRN #10 tab PRN Reason: *Anxiety/Agitation/Insomnia
[2018-07-31] MEDS ORDERED: LORazepam 2 MG/ML INJ IVP ONE ×2 (14:41→16:40)
[2018-07-31 15:06] LABS: PLATELET COUNT 322 10^3/uL (150-400)
[2018-07-31 18:25] VITALS: BP 135/90
== END 2018-07-31 18:25 | disposition home or self-care (01) ==
LOC: EDUNIT#
DX: F31.9 Bipolar disorder, unspecified (principal); F41.9 Anxiety disorder, unspecified
CPT/HCPCS: 96374; 99285; J2060; 80305; G0480

== ENCOUNTER 2018-08-02 03:30 | Inpatient (IN) | payer OTHER ==
[2018-08-02 03:48] LABS: PLATELET COUNT 238 10^3/uL (150-400)
[2018-08-02] MEDS ORDERED: ONDANSETRON 4 MG/2 ML VIAL ONE (04:00)
[2018-08-02] MEDS ORDERED: NS 1,000 ML IV ONE ×2 (04:03→04:36)
[2018-08-02] MEDS ORDERED: ONDANSETRON 4 MG/2 ML VIAL IVP ONE ×3 (04:03→06:40)
[2018-08-02] MEDS ORDERED: ACTIVATED CHARCOAL 50 GM/240 ML BOTTLE PO ONE (04:06)
[2018-08-02] MEDS ORDERED: GLUCAGON HCL 1 MG VIAL IVP ONE ×2 (05:01→05:36)
[2018-08-02] MEDS ORDERED: ACETAMINOPHEN 325 MG TAB PO PRN (05:25)
[2018-08-02] MEDS ORDERED: CALCIUM GLUCONATE 50 ML IV ONE (05:39)
--- NOTE | 2018-08-02 06:06 | PDGENHP ---
History and Physical - Chief Complaint Suicide attempt - History of Present Illness 68 yo M w/ hx of BPD, NICM, and polysubstance abuse presents after suicide attempt. The patient presents after taking 180 25 mg Coreg tabs and 2 "full syringes" of insulin. The patient is alert and cooperative upon my examination. He tells me he wishes to due to chronic pain. He tells me he no longer takes medication for his bipolar disorder and does not follow with a psychiatrist. He tells me he is compliant with his other medications. He continues to use marijuana but denies alcohol use or use of any other drugs. He is being admitted to the ICU on an M1 hold for monitoring of blood sugar, heart rate, and blood pressure. He is receiving glucagon in the ED. Case discussed with ED physician Dr. Burgess; records reviewed and summarized above. History Information - Allergies/Home Medication List Allergies/Adverse Reactions: Penicillins Allergy (Verified 08/02/18 03:34) Pt reports rxn as child- unsure of rxn Home Medications: Aspirin [Aspirin 81mg (*)] 81 mg PO HS 11/18/17 [Last Taken 11/17/17] Cyclobenzaprine [Flexeril 10 MG (*)] 10 mg PO BID 11/18/17 [Last Taken 11/17/17] Diclofenac Sodium [Voltaren 75 MG (*)] 75 mg PO HS 11/18/17 [Last Taken 11/17/17 ] Furosemide [Lasix 20 MG (*)] 20 mg PO DAILY 11/18/17 [Last Taken 11/17/17] Insulin NPH Human [HumuLIN N] 50 unit SC HS 11/18/17 [Last Taken 11/17/17] Omeprazole Magnesium 20 mg PO HS 11/18/17 [Last Taken 11/17/17] Pramipexole Di-HCl [Mirapex 0.25 mg (*)] 1.25 mg PO HS 11/18/17 [Last Taken ] QUEtiapine FUMARATE [Seroquel 100 mg (*)] 200 mg PO DAILY 11/18/17 [Last Taken 11/18/17] QUEtiapine FUMARATE [Seroquel 100 mg (*)] 500 mg PO HS 11/18/17 [Last Taken ] Insulin Regular Human 07/25/18 [Last Taken Unknown] traMADol 07/30/18 [Last Taken Unknown] I have personally reviewed and updated: family history, medical history - Past Medical History atrial fibrillation (past flutter ablation), CHF, diabetes type 2, hypertension , psychiatric history, pneumonia (recent history ) Additional medical history: 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 A fib s/p 2 ablations with pacemaker/AICD. H/O alcohol abuse - in remission x10 yrs. Marijuana abuse - Surgical History Additional surgical history: AICD / pacemaker - Family History Positive for: diabetes type II - Social History Smoking Status: Current some day smoker Additional social history: Quit alcohol and tobacco 10 yrs ago at onset of HF diagnosis. Lives in [facility] [place] Uses marijuana and benzos. Review of Systems Review of Systems: ROS: 10pt was reviewed & negative except for what was stated in HPI & below Physical Exam Physical Exam: Temp Pulse Resp BP Pulse Ox 36.8 C 83 18 104/60 95 08/02/18 03:34 08/02/18 06:00 08/02/18 06:00 08/02/18 06:00 08/02/18 06:00 O2 (L/minute) 2 Constitutional: no apparent distress, not in pain Eyes: PERRL, EOMI Ears, Nose, Mouth, Throat: moist mucous membranes, no oral mucosal ulcers Cardiovascular: regular rate and rhythym Respiratory: no respiratory distress, clear to auscultation Gastrointestinal: normoactive bowel sounds, soft, non-tender abdomen Skin: warm, normal color Musculoskeletal: full muscle strength, no muscle tenderness Neurologic: AAOx3, CN II-XII Intact Psychiatric: interacting appropriately, depressed, suicidal ideation Lab Data & Imaging Review 08/02/18 03:37 08/02/18 03:37 WBC 9.28 10^3/uL (3.80-9.50) 08/02/18 03:37 RBC 5.10 10^6/uL (4.40-6.38) 08/02/18 03:37 Hgb 14.9 g/dL (13.7-17.5) 08/02/18 03:37 POC Hgb 15.3 gm/dL (13.7-17.5) 08/02/18 03:43 Hct 43.6 % (40.0-51.0) 08/02/18 03:37 POC Hct 45 % (40-51) 08/02/18 03:43 MCV 85.5 fL (81.5-99.8) 08/02/18 03:37 MCH 29.2 pg (27.9-34.1) 08/02/18 03:37 MCHC 34.2 g/dL (32.4-36.7) 08/02/18 03:37 RDW 14.4 % (11.5-15.2) 08/02/18 03:37 Plt Count 238 10^3/uL (150-400) 08/02/18 03:37 MPV 9.8 fL (8.7-11.7) 08/02/18 03:37 Neut % (Auto) 73.3 % (39.3-74.2) 08/02/18 03:37 Lymph % (Auto) 15.4 % (15.0-45.0) 08/02/18 03:37 Cocke % (Auto) 7.9 % (4.5-13.0) 08/02/18 03:37 Eos % (Auto) 2.6 % (0.6-7.6) 08/02/18 03:37 Baso % (Auto) 0.5 % (0.3-1.7) 08/02/18 03:37 Nucleat RBC Rel Count 0.0 % (0.0-0.2) 08/02/18 03:37 Absolute Neuts (auto) 6.80 10^3/uL (1.70-6.50) H 08/02/18 03:37 Absolute Lymphs (auto) 1.43 10^3/uL (1.00-3.00) 08/02/18 03:37 Absolute Monos (auto) 0.73 10^3/uL (0.30-0.80) 08/02/18 03:37 Absolute Eos (auto) 0.24 10^3/uL (0.03-0.40) 08/02/18 03:37 Absolute Basos (auto) 0.05 10^3/uL (0.02-0.10) 08/02/18 03:37 Absolute Nucleated RBC 0.00 10^3/uL (0-0.01) 08/02/18 03:37 Immature Gran % 0.3 % (0.0-1.1) 08/02/18 03:37 Immature Gran # 0.03 10^3/uL (0.00-0.10) 08/02/18 03:37 POC Sodium 138 mEq/L (135-145) 08/02/18 03:43 Sodium 137 mEq/L (135-145) 08/02/18 03:37 POC Potassium 3.5 mEq/L (3.3-5.0) 08/02/18 03:43 Potassium 3.8 mEq/L (3.5-5.2) 08/02/18 03:37 POC Chloride 101 mEq/L (97-110) 08/02/18 03:43 Chloride 102 mEq/L (97-110) 08/02/18 03:37 Carbon Dioxide 23 mEq/l (22-31) 08/02/18 03:37 POC Total CO2 24 mEq/L (22-31) 08/02/18 03:43 Anion Gap 12 mEq/L (6-14) 08/02/18 03:37 POC BUN 30 mg/dL (7-23) H 08/02/18 03:43 BUN 35 mg/dL (7-23) H 08/02/18 03:37 Creatinine 0.8 mg/dL (0.7-1.3) 08/02/18 03:37 POC Creatinine 1.0 mg/dL (0.7-1.3) 08/02/18 03:43 Estimated GFR > 60 08/02/18 03:37 Glucose 122 mg/dL (70-100) H 08/02/18 03:37 POC Glucose 292 mg/dL (70-100) H 08/02/18 05:54 Calcium 10.6 mg/dL (8.5-10.4) H 08/02/18 03:37 Salicylates < 1.0 mg/dL (2.0-20.0) L 08/02/18 03:37 Acetaminophen < 10 mcg/mL (10-30) L 08/02/18 03:37 Ethyl Alcohol < 10 mg/dL (0-10) 08/02/18 03:37 Visualized and Interpreted EKG results: Yes EKG Interpretation: Positive for: normal sinsus rhythm, ST depression, T waves inversion Assessment & Plan Assessment: 68 yo M w/ hx of BPD, NICM, and polysubstance abuse presents after suicide attempt. Plan: 1. Bipolar disorder with acute suicidality - Patient presents after intentional overdose with beta blockers and insulin. He will need medical monitoring in the ICU prior to psychiatric admission. - Admit to ICU under M1 hold 2. Beta nile overdose - Patient took unknown amount of carvedilol, possibly dozens of pills. He was mildly hypotensive during observation but currently stable. - Currently receiving glucagon per protocol - S/p calcium gluconate - Monitor on telemetry 3. Insulin overdose - Patient reports taking "2 full syringes" of insulin. - Monitor blood glucose q30 min, space out over the course of today 4. ECG changes - Diffuse ST depression and T wave inversions, possibly as a result of beta nile overdose. He denies chest pain. - Monitor on telemetry - Will check troponin 5. Hx NICM - Thought to be due to drug use in the past; currently appears compensated. Has AICD in place. - Hold cardiac meds noting beta nile overdose Diet - NPO Code - Full Ppx - LMWH Dispo - Admit under observation status, M1 hold
[2018-08-02] MEDS ORDERED: ACTIVATED CHARCOAL 50 GM/240 ML BOTTLE ONE (06:47)
--- NOTE | 2018-08-02 07:09 | EDPHY ---
H & P Stated Complaint: took "whole bottle of Coreg and 2 syringes of insulin Time Seen by Provider: 08/02/18 04:59 HPI/ROS: HPI The patient presents with overdose of his own medication including Humulin and Coreg about 30 min prior to arrival. He says that he was in another emergency department and became upset. He left, went to his car, took an overdose of these medications in an effort to end his life and then came to the emergency department when he realized he was not . He used to large syringes of Humulin and took up to 180 tablets of Coreg 25 mg. He currently is feeling somewhat lightheaded and nauseated though denies any other symptoms.. REVIEW OF SYSTEMS 10 systems were reviewed and negative with the exception of the elements mentioned in the history of present illness. PMHx: CHF, AFib, GERD, bipolar disorder Soc Hx: Housed PHYSICAL General Appearance: Alert, no distress Eyes: Pupils equal and round no pallor or injection ENT, Mouth: Mucous membranes moist Respiratory: There are no retractions, lungs are clear to auscultation Cardiovascular: Regular rate and rhythm Gastrointestinal: Abdomen is soft and non-tender, no masses, bowel sounds normal Neurological: A&O, moves all extremities Skin: Warm and dry, no rashes Musculoskeletal: Neck is supple non tender Extremities: symmetrical, full range of motion Psychiatric: Patient is oriented X 3, there is no agitation Source: Patient Exam Limitations: No limitations - Personal History Current Tetanus/Diphtheria Vaccine: Yes Current Tetanus Diphtheria and Acellular Pertussis (TDAP): Yes Tetanus Vaccine Date: within 10 YEARS - Medical/Surgical History Hx Asthma: No Hx Chronic Respiratory Disease: No Hx Diabetes: Yes Hx Cardiac Disease: Yes Hx Renal Disease: No Hx Cirrhosis: No Hx Alcoholism: Yes Hx HIV/AIDS: No Hx Splenectomy or Spleen Trauma: No Other PMH: 1. atrial tachycardia, ablation, afib 2. pacemaker/defibrillator, 3. bipolar 4. CHF 5. panic attacks, anxiety 6. high cholesterol 7. cardiomyopathy, 8. gerd 9.DIABETES 10. PTSD 11. CHF 12. restless leg. - Social History Smoking Status: Current some day smoker Constitutional: Initial Vital Signs Temperature (C) 36.8 C 08/02/18 03:34 Heart Rate 74 08/02/18 03:34 Respiratory Rate 16 08/02/18 03:34 Blood Pressure 95/81 H 08/02/18 03:34 O2 Sat (%) 92 08/02/18 03:34 O2 Delivery Mode Nasal Cannula O2 (L/minute) 2 Allergies/Adverse Reactions: Penicillins Allergy (Verified 08/02/18 03:34) Pt reports rxn as child- unsure of rxn Home Medications: Medication Instructions Recorded Aspirin [Aspirin 81mg (*)] 81 mg PO HS 11/18/17 Cyclobenzaprine [Flexeril 10 MG 10 mg PO BID 11/18/17 (*)] Diclofenac Sodium [Voltaren 75 MG 75 mg PO HS 11/18/17 (*)] Furosemide [Lasix 20 MG (*)] 20 mg PO DAILY 11/18/17 Insulin NPH Human [HumuLIN N] 50 unit SC HS 11/18/17 Omeprazole Magnesium 20 mg PO HS 11/18/17 Pramipexole Di-HCl [Mirapex 0.25 1.25 mg PO HS 11/18/17 mg (*)] QUEtiapine FUMARATE [Seroquel 100 200 mg PO DAILY 11/18/17 mg (*)] QUEtiapine FUMARATE [Seroquel 100 500 mg PO HS 11/18/17 mg (*)] Carvedilol [Coreg (*)] 3.125 mg PO BIDMEAL #60 tab 11/21/17 Lisinopril [Zestril 2.5 mg (*)] 2.5 mg PO DAILY #30 tab 11/21/17 Insulin Regular Human 07/25/18 traMADol 07/30/18 LORazepam [Ativan 1 mg (RX)] 1 mg PO Q6-8PRN PRN #10 tab 07/31/18 Medical Decision Making - Diagnostics EKG Interpretation: EKG: Complete interpretation has been separately recorded in the [facility] archive. Summary impression: Normal sinus rhythm left axis deviation, normal intervals, T-wave inversions in V3 through V6. Differential Diagnosis: 68-year-old male with history of bipolar disorder, CHF, atrial fibrillation, diabetes on insulin presents with intentional overdose of insulin and carvedilol just prior to arrival. We consulted with poison Control and the patient was given charcoal which did induce some vomiting. His blood glucose was unremarkable and was checked serially here. He did develop hypotension without bradycardia and for this was given a dose of glucagon with improvement in his symptoms. Due to low glucagon supplies in the hospital and normal maps we held any further glucagon dosing in the emergency department. However, patient was given calcium. He did not require pressors. I discussed the case with Dr. Hutchins of the hospitalist service and we will admit the patient to the ICU. I have placed him on an M1 hold for this intentional overdose. Critical Care Time: CRITICAL CARE Critical care time spent by me, Dr. Burgess, exclusively with this patient was 30 minutes, exclusive of PA time and exclusive of procedures. The organ system at risk was cardiac and I gave IV fluids, glucagon, calcium, transfer the patient to the ICU to prevent worsening of the patients condition. - Data Points Laboratory Results: Laboratory Results 08/02/18 03:37 08/02/18 03:37 08/02/18 08/02/18 08/02/18 06:34 06:11 05:54 WBC RBC Hgb POC Hgb Hct POC Hct MCV MCH MCHC RDW Plt Count MPV Neut % (Auto) Lymph % (Auto) Stanly % (Auto) Eos % (Auto) Baso % (Auto) Nucleat RBC Rel Count Absolute Neuts (auto) Absolute Lymphs (auto) Absolute Monos (auto) Absolute Eos (auto) Absolute Basos (auto) Absolute Nucleated RBC Immature Gran % Immature Gran # POC Sodium Sodium POC Potassium Potassium POC Chloride Chloride Carbon Dioxide POC Total CO2 Anion Gap POC BUN BUN Creatinine POC Creatinine Estimated GFR Glucose POC Glucose 289 mg/dL H mg/dL 310 mg/dL H mg/dL 292 mg/dL H mg/dL (70-100) (70-100) (70-100) Calcium Salicylates Acetaminophen Ethyl Alcohol 08/02/18 08/02/18 08/02/18 05:38 05:21 05:03 WBC RBC Hgb POC Hgb Hct POC Hct MCV MCH MCHC RDW Plt Count MPV Neut % (Auto) Lymph % (Auto) Stanly % (Auto) Eos % (Auto) Baso % (Auto) Nucleat RBC Rel Count Absolute Neuts (auto) Absolute Lymphs (auto) Absolute Monos (auto) Absolute Eos (auto) Absolute Basos (auto) Absolute Nucleated RBC Immature Gran % Immature Gran # POC Sodium Sodium POC Potassium Potassium POC Chloride Chloride Carbon Dioxide POC Total CO2 Anion Gap POC BUN BUN Creatinine POC Creatinine Estimated GFR Glucose POC Glucose 275 mg/dL H mg/dL 249 mg/dL H mg/dL 173 mg/dL H mg/dL (70-100) (70-100) (70-100) Calcium Salicylates Acetaminophen Ethyl Alcohol 08/02/18 08/02/18 08/02/18 04:45 04:30 04:14 WBC RBC Hgb POC Hgb Hct POC Hct MCV MCH MCHC RDW Plt Count MPV Neut % (Auto) Lymph % (Auto) Stanly % (Auto) Eos % (Auto) Baso % (Auto) Nucleat RBC Rel Count Absolute Neuts (auto) Absolute Lymphs (auto) Absolute Monos (auto) Absolute Eos (auto) Absolute Basos (auto) Absolute Nucleated RBC Immature Gran % Immature Gran # POC Sodium Sodium POC Potassium Potassium POC Chloride Chloride Carbon Dioxide POC Total CO2 Anion Gap POC BUN BUN Creatinine POC Creatinine Estimated GFR Glucose POC Glucose 109 mg/dL H mg/dL 99 mg/dL mg/dL 108 mg/dL H mg/dL (70-100) (70-100) (70-100) Calcium Salicylates Acetaminophen Ethyl Alcohol 08/02/18 08/02/18 08/02/18 03:43 03:37 03:37 WBC 9.28 10^3/uL 10^3/uL (3.80-9.50) RBC 5.10 10^6/uL 10^6/uL (4.40-6.38) Hgb 14.9 g/dL g/dL (13.7-17.5) POC Hgb 15.3 gm/dL gm/dL (13.7-17.5) Hct 43.6 % % (40.0-51.0) POC Hct 45 % % (40-51) MCV 85.5 fL fL (81.5-99.8) MCH 29.2 pg pg (27.9-34.1) MCHC 34.2 g/dL g/dL (32.4-36.7) RDW 14.4 % % (11.5-15.2) Plt Count 238 10^3/uL 10^3/uL (150-400) MPV 9.8 fL fL (8.7-11.7) Neut % (Auto) 73.3 % % (39.3-74.2) Lymph % (Auto) 15.4 % % (15.0-45.0) Stanly % (Auto) 7.9 % % (4.5-13.0) Eos % (Auto) 2.6 % % (0.6-7.6) Baso % (Auto) 0.5 % % (0.3-1.7) Nucleat RBC Rel Count 0.0 % % (0.0-0.2) Absolute Neuts (auto) 6.80 10^3/uL H 10^3/uL (1.70-6.50) Absolute Lymphs (auto) 1.43 10^3/uL 10^3/uL (1.00-3.00) Absolute Monos (auto) 0.73 10^3/uL 10^3/uL (0.30-0.80) Absolute Eos (auto) 0.24 10^3/uL 10^3/uL (0.03-0.40) Absolute Basos (auto) 0.05 10^3/uL 10^3/uL (0.02-0.10) Absolute Nucleated RBC 0.00 10^3/uL 10^3/uL (0-0.01) Immature Gran % 0.3 % % (0.0-1.1) Immature Gran # 0.03 10^3/uL 10^3/uL (0.00-0.10) POC Sodium 138 mEq/L mEq/L (135-145) Sodium 137 mEq/L mEq/L (135-145) POC Potassium 3.5 mEq/L mEq/L (3.3-5.0) Potassium 3.8 mEq/L mEq/L (3.5-5.2) POC Chloride 101 mEq/L mEq/L (97-110) Chloride 102 mEq/L mEq/L (97-110) Carbon Dioxide 23 mEq/l mEq/l (22-31) POC Total CO2 24 mEq/L mEq/L (22-31) Anion Gap 12 mEq/L mEq/L (6-14) POC BUN 30 mg/dL H mg/dL (7-23) BUN 35 mg/dL H mg/dL (7-23) Creatinine 0.8 mg/dL mg/dL (0.7-1.3) POC Creatinine 1.0 mg/dL mg/dL (0.7-1.3) Estimated GFR > 60 Glucose 122 mg/dL H mg/dL (70-100) POC Glucose 123 mg/dL H mg/dL (70-100) Calcium 10.6 mg/dL H mg/dL (8.5-10.4) Salicylates < 1.0 mg/dL L mg/dL (2.0-20.0) Acetaminophen < 10 mcg/mL L mcg/mL (10-30) Ethyl Alcohol < 10 mg/dL mg/dL (0-10) Medications Given: Discontinued Medications Charcoal (Actidose-Aqua) 50 gm PO EDNOW ONE Stop: 08/02/18 04:07 Last Admin: 08/02/18 04:14 Dose: 50 gm Glucagon (Glucagon) 5 mg IVP EDNOW ONE Stop: 08/02/18 05:02 Last Admin: 08/02/18 05:20 Dose: 5 mg Sodium Chloride (Ns) 1,000 mls @ 0 mls/hr IV EDNOW ONE; Wide Open PRN Reason: Protocol Stop: 08/02/18 04:04 Last Admin: 08/02/18 04:08 Dose: 1,000 mls Sodium Chloride (Ns) 1,000 mls @ 0 mls/hr IV EDNOW ONE; Wide Open PRN Reason: Protocol Stop: 08/02/18 04:37 Last Admin: 08/02/18 04:37 Dose: 1,000 mls Calcium Gluconate (Calcium Gluconate 1 Gm (Premix)) 50 mls @ 100 mls/hr IV EDNOW ONE Stop: 08/02/18 06:08 Last Admin: 08/02/18 05:50 Dose: 50 mls Ondansetron HCl (Zofran) 4 mg IVP EDNOW ONE Stop: 08/02/18 04:04 Last Admin: 08/02/18 04:07 Dose: 4 mg Ondansetron HCl (Zofran) 4 mg IVP EDNOW ONE Stop: 08/02/18 04:37 Last Admin: 08/02/18 04:37 Dose: 4 mg Ondansetron HCl (Zofran) 4 mg IVP EDNOW ONE Stop: 08/02/18 06:41 Last Admin: 08/02/18 06:43 Dose: 4 mg Point of Care Test Results: Chemistry 08/02/18 08/02/18 08/02/18 06:34 06:11 05:54 POC Sodium POC Potassium POC Chloride POC Total CO2 POC BUN POC Creatinine POC Glucose 289 mg/dL H mg/dL 310 mg/dL H mg/dL 292 mg/dL H mg/dL (70-100) (70-100) (70-100) 08/02/18 08/02/18 08/02/18 05:38 05:21 05:03 POC Sodium POC Potassium POC Chloride POC Total CO2 POC BUN POC Creatinine POC Glucose 275 mg/dL H mg/dL 249 mg/dL H mg/dL 173 mg/dL H mg/dL (70-100) (70-100) (70-100) 08/02/18 08/02/18 08/02/18 04:45 04:30 04:14 POC Sodium POC Potassium POC Chloride POC Total CO2 POC BUN POC Creatinine POC Glucose 109 mg/dL H mg/dL 99 mg/dL mg/dL 108 mg/dL H mg/dL (70-100) (70-100) (70-100) 08/02/18 03:43 POC Sodium 138 mEq/L mEq/L (135-145) POC Potassium 3.5 mEq/L mEq/L (3.3-5.0) POC Chloride 101 mEq/L mEq/L (97-110) POC Total CO2 24 mEq/L mEq/L (22-31) POC BUN 30 mg/dL H mg/dL (7-23) POC Creatinine 1.0 mg/dL mg/dL (0.7-1.3) POC Glucose 123 mg/dL H mg/dL (70-100) ISTAT H&H 08/02/18 03:43 POC Hgb 15.3 gm/dL gm/dL (13.7-17.5) POC Hct 45 % % (40-51) Departure - Departure Disposition: [facility] Inpatient Acute Clinical Impression: Suicidal ideation Suicide attempt by beta nile overdose Qualifiers: Encounter type: initial encounter Qualified Code(s): T44.7X2A - Poisoning by beta-adrenoreceptor antagonists, intentional self-harm, initial encounter Insulin overdose Qualifiers: Encounter type: initial encounter Injury intent: intentional self-harm Qualified Code(s): T38.3X2A - Poisoning by insulin and oral hypoglycemic [ antidiabetic] drugs, intentional self-harm, initial encounter Deliberate medication overdose Qualifiers: Encounter type: initial encounter Qualified Code(s): T50.902A - Poisoning by unspecified drugs, medicaments and biological substances, intentional self-harm , initial encounter CHF (congestive heart failure) Qualifiers: Heart failure type: unspecified Heart failure chronicity: chronic Qualified Code(s): I50.9 - Heart failure, unspecified Hypotension Qualifiers: Hypotension type: hypotension due to drug Qualified Code(s): I95.2 - Hypotension due to drugs Condition: Critical Referrals: LUISANA CHATTERJEE [Primary Care Provider] - As per Instructions
[2018-08-02] MEDS ORDERED: D50W 25 GM/50 ML SYR IVP ONE ×2 (08:58→09:15)
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
[2018-08-02] MEDS ORDERED: D10W 1,000 ML IV SCH (09:30)
[2018-08-02] MEDS ORDERED: CYCLOBENZAPRINE 10 MG TAB PO PRN (11:02)
[2018-08-02] MEDS ORDERED: DICLOFENAC SODIUM 75 MG TAB PO PRN (11:02)
--- NOTE | 2018-08-02 11:19 | HOSPPROG ---
Hospitalist Progress Note Assessment/Plan: # insulin overdose with ongoing hypoglycemia requiring continuous IV dextrose - unclear if he took NPH or regular, we believe about 200U total; he takes around 50U daily at baseline, maybe more - currently on a D10 gtt at 150/hr with Q1 gluc checks # coreg overdose - currently tolerating reasonably well, but got glucagon 5mg at 0500 - he got activated charcoal - he is at risk for further decompensation from this - cont tele monitoring; he has some mild ECG changes # ethics - he has a MOST with a DNR order; he is currently on an M1 but decisional; whether or not to honor the DNR is in question; since he drove himself to the hospital, I feel that he essentially asked for medical help after his overdose, thus I will not change the advanced directive order at this time; ethics has been consulted to assist with this question # chronic pain - this is a major complaint and 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 - will continue his outpatient meds currently # RLS - this is also a main complaint; cont mirapex # chronic sCHF with reported recovered EF - holding BB and mercedes currently Subjective: still wants to ; c/o severe pain; Objective: Vital Signs Temp Pulse Resp BP Pulse Ox 36.8 C 66 12 119/70 96 08/02/18 11:00 08/02/18 11:00 08/02/18 11:00 08/02/18 11:00 08/02/18 11:00 08/01/18 08/02/18 08/03/18 05:59 05:59 05:59 Intake Total 1800 Output Total 550 Balance 1250 35 mins cc time managing lie threatening overdose - Physical Exam Constitutional: uncomfortable Cardiovascular: regular rate and rhythym, no murmur, rub, or gallop Respiratory: no respiratory distress, no rales or rhonchi, clear to auscultation Gastrointestinal: soft, non-tender abdomen, no palpable masses, No guarding, No rebound, No distension ICD10 Worksheet Patient Problems: Problems Problem Status Onset Cardiomyopathy Acute Supraventricular tachycardia Acute Hypotension Acute Renal insufficiency Acute Dehydration Acute Adverse effects of medication Acute Cyclic vomiting syndrome Acute Nausea & vomiting Acute CHF (congestive heart failure) Acute Suicidal ideation Acute Suicide attempt by beta nile overdose Acute Insulin overdose Acute Deliberate medication overdose Acute
[2018-08-02] MEDS: traMADol 50 MG TAB PO PRN (12:00)
[2018-08-02] MEDS: ENOXAPARIN 40 MG/0.4 ML SYR SC SCH (12:02)
[2018-08-02] MEDS: ONDANSETRON DISINTEGRATING 4 MG TAB PO PRN ×2 (12:15→21:23)
--- NOTE | 2018-08-02 15:22 | ASMTCASEMG ---
Living Arrangements What is your living Answers: Alone arrangement? Who do you live with? Type Of Residence What kind of residence do Answers: House you live in? Discharge Plan Comments Coordination Status Comments Notes: Patient is a 68yo male who drove himself to [facility] ER after taking 180 25 mg Coreg tabs and 2 full syringes of insulin in a suicide attempt due to no longer wanting to live with chronic pain. The patient has been admitted on an M1 hold and will get a TLC evaluation when he is medically cleared. Patient has a hx of Bipolar disorder and polysubstance abuse. He lives in [place] though he lists a [place] address. During rounds , issues were raised regarding patient being a DNR and having a MOST form stating no CPR. Please see ethics notes regarding the questions and the outcome. Discharge plan will be determined by TLC evaluation. Palliative care order requested to follow up with patient on managing pain and dealing with his restless leg syndrome. CM available for consult or any d/c needs that might arise. Date Signed: 08/02/2018 03:21 PM Electronically Signed By:Rosalee Early LCSW
[2018-08-02] MEDS: GABAPENTIN 300 MG CAP PO SCH ×2 (16:43→22:41)
--- NOTE | 2018-08-02 17:44 | PDMN ---
Medical Necessity Medical necessity: Pt meets IP criteria per & MCG M-153 Drug Ingestion or Overdose; los >2 mn for ongoing management of intentional life threatening overdose w/Insulin & Beta Blockers; pt on M1 hold due to attempted suicide; admit to ICU for close monitoring, safety & med management; hx chronic pain, CHF , diabetes, AICD; per progress note & order 08/02/18
[2018-08-02] MEDS: PRAMIPEXOLE 0.25 MG TAB PO SCH (20:07)
[2018-08-02] MEDS: LORazepam 1 MG TAB PO PRN (21:04)
[2018-08-02] MEDS: ONDANSETRON 4 MG/2 ML VIAL IVP PRN (21:44)
[2018-08-02] MEDS ORDERED: PROMETHAZINE HCL 25 MG/ML INJ IVP ONE (22:11)
[2018-08-03] MEDS: CALCIUM CARBONATE 500 MG CHEWABLE TAB PO PRN ×2 (00:07→12:07)
[2018-08-03] MEDS: traMADol 50 MG TAB PO PRN ×2 (02:10→21:58)
--- NOTE | 2018-08-03 04:38 | CPEKG ---
Test Reason : OPEN Blood Pressure : / mmHG Vent. Rate : 057 BPM Atrial Rate : 056 BPM P-R Int : 169 ms QRS Dur : 096 ms QT Int : 429 ms P-R-T Axes : 053 -29 245 degrees QTc Int : 418 ms Sinus rhythm Borderline left axis deviation Abnormal R-wave progression, early transition Repol abnrm suggests ischemia, anterolateral Confirmed by Noemi Burgess ([id number]) on 08/03/2018 4:38:07 AM Referred By: PHYSICIAN ED Confirmed By:Noemi Burgess
[2018-08-03 05:25] LABS: PLATELET COUNT 188 10^3/uL (150-400)
[2018-08-03] MEDS: GABAPENTIN 300 MG CAP PO SCH ×3 (08:48→21:50)
[2018-08-03] MEDS: ENOXAPARIN 40 MG/0.4 ML SYR SC SCH (08:48)
[2018-08-03] MEDS: LORazepam 1 MG TAB PO PRN (09:42)
[2018-08-03] MEDS: ONDANSETRON 4 MG/2 ML VIAL IVP PRN (10:53)
[2018-08-03] MEDS ORDERED: LISINOPRIL 2.5 MG TAB PO SCH (11:15)
--- NOTE | 2018-08-03 11:19 | HOSPPROG ---
Hospitalist Progress Note Assessment/Plan: #Insulin OD, hx of IDDM -Now off Dextrose since early a.m. -Glucose ok at this point. -Will need to restart Insulin at some point #Coreg OD -s/p activated charcoal -mild EKG changes likely a result of the Coreg. Cont to monitor on Tele #Suicide Attempt with hx of Bipolar -Seroquel to be restarted -M1 Hold -Will need psych evaluation #Chronic Pain Syndrome, restless Leg Syndrome, and chronic Bilateral calf cramping of unclear etiology. -He reports that the reason he attempted suicide was due to severe pain that he gets when his calfs cramp. These occur when he is laying down and mostly at night time. Dorsiflexion of the foot helps with the pain. He gets cramps nightly and he has been diagnosed with RLS because of it. While he may have RLS , the cramps may be a separate etiology all together. I will ask PT to evaluate the patient. He will benefit from calf stretching and calf strengthening. He may also benefit from a structural support either a brace or taping which would assist with keeping his feet dorsiflexed when he is in bed. He would benefit from op PT but hopefully this can be started here while hospitalized as he claims that this is the main trigger for his suicide attempt. -electrolytes are within normal range. Will check Mg as well #HTN -will restart Lisinopril today #Chronic Systolic CHF -Euvolemic -restart PRINCESS-I today -restart every other day diuretic -cont to hold BB for now, will need to be restarted shortly #Nausea: -Antiemetics DVT proph: Lovenox Dispo: pending his clinical course today, he will be medically stable today or tomorrow PT will eval pt today and make recommendations and show him stretching and calf exercises Subjective: no active si. reports intermittent pain to calf from cramping Objective: Vital Signs Temp Pulse Resp BP Pulse Ox 36.9 C 64 17 144/79 H 99 08/03/18 08:00 08/03/18 10:00 08/03/18 10:00 08/03/18 10:00 08/03/18 10:00 Laboratory Results 08/03/18 05:00 08/03/18 05:00 05/09/19 05/10/19 05/11/19 05:59 05:59 05:59 Intake Total 2160 Output Total 1450 Balance 710 - Physical Exam Constitutional: no apparent distress Eyes: PERRL, EOMI Ears, Nose, Mouth, Throat: moist mucous membranes, hearing normal Cardiovascular: regular rate and rhythym, No edema Respiratory: no respiratory distress, no rales or rhonchi, clear to auscultation Gastrointestinal: normoactive bowel sounds, soft, non-tender abdomen Skin: warm Neurologic: AAOx3, No CN II-XII Intact Psychiatric: interacting appropriately, not anxious, not encephalopathic, No suicidal ideation Lymph, Heme, Immunologic: No petechiae ICD10 Worksheet Patient Problems: Problems Problem Status Onset CHF (congestive heart failure) Acute Deliberate medication overdose Acute Hypotension Acute Insulin overdose Acute Suicidal ideation Acute Suicide attempt by beta nile overdose Acute Adverse effects of medication Acute Cardiomyopathy Acute Cyclic vomiting syndrome Acute Dehydration Acute Nausea & vomiting Acute Renal insufficiency Acute Supraventricular tachycardia Acute
[2018-08-03] MEDS: LISINOPRIL 5 MG TAB PO SCH (12:08)
[2018-08-03] MEDS ORDERED: MAGNESIUM SULF 2 GM/WATER 50 ML IV ONE (12:48)
[2018-08-03] MEDS ORDERED: LORazepam 1 MG TAB PO PRN (15:00)
[2018-08-03] MEDS ORDERED: QUEtiapine FUMARATE 100 MG TAB PO SCH (21:00)
[2018-08-03] MEDS ORDERED: ASPIRIN 81 MG CHEWABLE TAB PO SCH (21:00)
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
[2018-08-04] MEDS: PRAMIPEXOLE 0.25 MG TAB PO SCH (00:42)
[2018-08-04] MEDS ORDERED: QUEtiapine FUMARATE 100 MG TAB PO SCH (09:00)
[2018-08-04] MEDS: LISINOPRIL 5 MG TAB PO SCH (09:17)
[2018-08-04] MEDS: ENOXAPARIN 40 MG/0.4 ML SYR SC SCH (09:17)
[2018-08-04] MEDS: GABAPENTIN 300 MG CAP PO SCH (09:17)
--- NOTE | 2018-08-04 13:09 | HOSPPROG ---
Hospitalist Progress Note Assessment/Plan: #Insulin OD, hx of IDDM -Now off Dextrose -Glucose ok at this point. -restart NPH today #Coreg OD -s/p activated charcoal -restart Coreg today #Suicide Attempt with hx of Bipolar -Seroquel to be restarted -M1 Hold -Will need psych evaluation, inpatient psych #Chronic Pain Syndrome, restless Leg Syndrome, and chronic Bilateral calf cramping of unclear etiology. -He reported on 08/03 that the reason he attempted suicide was due to severe pain that he gets when his calfs cramp. #HTN -Lisinopril -Coreg #Chronic Systolic CHF -Euvolemic -PRINCESS-I, BB -restart every other day diuretic #Nausea: -Antiemetics DVT proph: Lovenox Dispo: medically cleared. Awaiting psych placement Subjective: no cp or sob. Objective: Vital Signs Temp Pulse Resp BP Pulse Ox 36.6 C 103 H 14 166/102 H 95 08/04/18 11:58 08/04/18 11:58 08/04/18 11:58 08/04/18 11:58 08/04/18 11:58 Laboratory Results 08/03/18 05:00 08/03/18 05:00 08/03/18 08/04/18 08/05/18 05:59 05:59 05:59 Intake Total 2160 2350 1400 Output Total 1450 1200 550 Balance 710 1150 850 - Physical Exam Constitutional: no apparent distress Eyes: PERRL, EOMI Ears, Nose, Mouth, Throat: moist mucous membranes, hearing normal Cardiovascular: regular rate and rhythym, No edema Respiratory: no respiratory distress Gastrointestinal: normoactive bowel sounds Skin: warm Neurologic: AAOx3 Psychiatric: interacting appropriately, not anxious, not encephalopathic Lymph, Heme, Immunologic: No petechiae ICD10 Worksheet Patient Problems: Problems Problem Status Onset CHF (congestive heart failure) Acute Deliberate medication overdose Acute Hypotension Acute Insulin overdose Acute Suicidal ideation Acute Suicide attempt by beta nile overdose Acute Adverse effects of medication Acute Cardiomyopathy Acute Cyclic vomiting syndrome Acute Dehydration Acute Nausea & vomiting Acute Renal insufficiency Acute Supraventricular tachycardia Acute
--- NOTE | 2018-08-04 13:23 | ASMTTCLDSP ---
[facility] Discharge Disposition Disposition: Answers: Admit Disposition Notes: Notes: In consultation with [facility] Hospitalist, Dr. Thierno MD and on-call psychiatrist, Derick Stevens MD, both concurred that pt appears to meet 27-65 criteria requiring psychiatric hospitalization as pt appears to be at risk of harm to self due to a mental illness condition. . Pt was read the Patient Rights and Responsibilities Statement and signed the rights ([facility] industrial sewer [employer] placed the rights into the pt's chart) and pt was given photocopy of Rights. For inpatient Derickvictor manuel Stevens admission, the following psychiatrist agreed to accept patient for admission to Behavior[facility] ([facility]): Type of Hold: Answers: M1/72-hour Hold Hold initiated by: Answers: ED Physician Date Signed: 08/04/2018 01:22 PM Electronically Signed By:Kale Mullen
[2018-08-04 14:12] VITALS: BP 140/95
--- NOTE | 2018-08-04 14:23 | ASMTCMCOM ---
CM Note CM Note Notes: CM set up transportation through [facility] across the street to Behavioral Health building. [facility] will be picking pt up at 330pm. The emtala form was filled out and put in the back of the file. The [facility] transport form was filled out and giving to head nurse to transport with the pt. No other CM needs at this time. Date Signed: 08/04/2018 02:22 PM Electronically Signed By:Chasidy Chambers
[2018-08-04] MEDS ORDERED: INSULIN NPH HUMAN 100 UNITS/ML SYR SC SCH (17:30)
[2018-08-04] MEDS ORDERED: CARVEDILOL 25 MG TAB PO SCH (18:00)
[2018-08-04] MEDS ORDERED: PRAMIPEXOLE 1 MG TAB PO SCH (21:00)
[2018-08-05] MEDS ORDERED: TORSEMIDE 20 MG TAB PO SCH (09:00)
== END 2018-08-04 15:32 | DRG 918 ==
LOC: F2N 07:32 → EEVIPCON 11:20 → OBSVTOIN 11:20
PROVIDERS: ADMIT Student in an Organized Health Care Education/Training Program; ATTEND Student in an Organized Health Care Education/Training Program
DX: T38.3X2A Poisoning by insulin and oral hypoglycemic [antidiabetic] drugs, intentional self-harm, initial encounter (principal); I50.22 Chronic systolic (congestive) heart failure; T44.6X2A Poisoning by alpha-adrenoreceptor antagonists, intentional self-harm, initial encounter; G89.29 Other chronic pain; E86.9 Volume depletion, unspecified; I48.91 Unspecified atrial fibrillation; K21.9 Gastro-esophageal reflux disease without esophagitis; F31.9 Bipolar disorder, unspecified; F12.90 Cannabis use, unspecified, uncomplicated; Z72.0 Tobacco use; Z79.4 Long term (current) use of insulin; Z95.810 Presence of automatic (implantable) cardiac defibrillator; Z66 Do not resuscitate
CPT/HCPCS: 80305; 82435-PO; 82565-PO; 82947-PO; 84132-PO; 84295-PO; 84520-PO; 85014-ER; 96365; 96374; 97110-GP; 97161-GP; G0480; J0610; J1610; J1650; J1815; J2405; J2550; J3475

== ENCOUNTER 2018-08-04 15:40 | Inpatient (IN) | payer OTHER ==
--- NOTE | 2018-08-04 16:02 | PDDCSUM ---
Discharge Summary Discharge Summary: 68 yo male admitted following suicide attempt per below. He was admitted to the ICU with an M1 hold. He is being discharged to [facility] for further mgmt. He is medically cleared. DDX #Insulin OD, hx of IDDM -Now off Dextrose -Glucose ok at this point. -restart NPH today #Coreg OD -s/p activated charcoal -restart Coreg today #Suicide Attempt with hx of Bipolar -Seroquel to be restarted -M1 Hold -Will need psych evaluation, inpatient psych #Chronic Pain Syndrome, restless Leg Syndrome, and chronic Bilateral calf cramping of unclear etiology. -He reported on 08/03 that the reason he attempted suicide was due to severe pain that he gets when his calfs cramp. #HTN -Lisinopril -Coreg #Chronic Systolic CHF -Euvolemic -PRINCESS-I, BB -restarted every other day diuretic #Nausea: -Antiemetics Meds: see med rec list total time spent on d/c is 35 mins
[2018-08-04] MEDS ORDERED: MAG HYDROX/AL HYDROX/SIMETH 30 ML UDCUP PO PRN (16:50)
[2018-08-04] MEDS ORDERED: MAGNESIUM HYDROXIDE 30 ML UDCUP PO PRN (16:50)
[2018-08-04] MEDS ORDERED: NICOTINE POLACRILEX 2 MG GUM B PRN (16:50)
[2018-08-04] MEDS ORDERED: ACETAMINOPHEN 325 MG TAB PO PRN (16:50)
[2018-08-04] MEDS ORDERED: PROMETHAZINE HCL 25 MG TAB PO PRN ×2 (17:03→17:28)
[2018-08-04] MEDS ORDERED: CALCIUM CARBONATE 500 MG CHEWABLE TAB PO PRN (17:03)
[2018-08-04] MEDS ORDERED: traMADol 50 MG TAB PO PRN (17:04)
[2018-08-04] MEDS ORDERED: DICLOFENAC SODIUM 75 MG TAB PO PRN (17:06)
[2018-08-04] MEDS ORDERED: CYCLOBENZAPRINE 10 MG TAB PO PRN (17:07)
[2018-08-04] MEDS: ONDANSETRON DISINTEGRATING 4 MG TAB PO PRN (17:37)
[2018-08-04] MEDS ORDERED: ALBUTEROL 60 PUFFS/8 GM MDI IH PRN (18:01)
[2018-08-04] MEDS: CARVEDILOL 25 MG TAB PO SCH (19:12)
[2018-08-04] MEDS: INSULIN NPH HUMAN 100 UNITS/ML SYR SC SCH (19:25)
[2018-08-04] MEDS: INSULIN REGULAR HUMAN 100 UNIT/ML UNIT SC SCH (19:25)
[2018-08-04] MEDS: PRAMIPEXOLE 1 MG TAB PO SCH (21:09)
[2018-08-04] MEDS: ASPIRIN 81 MG CHEWABLE TAB PO SCH (21:13)
[2018-08-04] MEDS: PANTOPRAZOLE SODIUM 40 MG TAB PO SCH (21:13)
[2018-08-04] MEDS: QUEtiapine FUMARATE 200 MG TAB PO SCH (21:13)
[2018-08-04] MEDS: GABAPENTIN 300 MG CAP PO SCH (21:16)
[2018-08-04] MEDS: LORazepam 0.5 MG TAB PO PRN (21:16)
[2018-08-04] MEDS ORDERED: GABAPENTIN 400 MG CAP PO SCH (22:00)
[2018-08-05] MEDS: GABAPENTIN 300 MG CAP PO SCH ×3 (08:27→21:23)
[2018-08-05] MEDS: QUEtiapine FUMARATE 100 MG TAB PO SCH (08:27)
[2018-08-05] MEDS: CARVEDILOL 25 MG TAB PO SCH ×2 (08:27→18:16)
[2018-08-05] MEDS: INSULIN REGULAR HUMAN 100 UNIT/ML UNIT SC SCH ×3 (08:28→18:23)
[2018-08-05] MEDS: LISINOPRIL 5 MG TAB PO SCH (08:28)
[2018-08-05] MEDS: PANTOPRAZOLE SODIUM 40 MG TAB PO SCH ×2 (08:28→21:23)
[2018-08-05] MEDS: INSULIN NPH HUMAN 100 UNITS/ML SYR SC SCH ×2 (08:29→18:23)
--- NOTE | 2018-08-05 11:31 | ASMTBHMTP ---
Master Treatment Plan Master Treatment Plan Answers: Depressed Mood with for: Suicidal Ideation Date: 08/05/2018 Diagnosis on Admission: Depression Expected length of stay: 3-5 Days Reason for admission: Notes: Per [facility]LC Evaluation - Pt. is a 68 -year-old man, , grown children, disabled (SSDI), history of bipolar II, PTSD, CHF, Afib post ablation, AICD type 2 diabetes and restless leg syndrome who live in [place]. The patient self presented on 08/02/18 with overdose of his own medication including Humulin and Coreg about 30 min prior to arrival. He says that he was in another emergency department and became upset. He left, went to his car, took an overdose of these medication in an effort to end his life and then came to the emergency department when he realized he was not . He used two large syringes of Humulin and took up to 180 tablets of Coreg 25 mg. He is currently is feeling somewhat lightheaded and nauseated though denied any other symptoms. Pt. was placed on an M1 hold by ED physician and shortly after admitted to ICU. Patient's stated presenting problems: Notes: Pt. reports having chronic pain for the last three years, in addition to restless leg syndrome. Pt. reports he went to the hospital seeking help and was turned away by a MD. Pt. became upset, went to a [employer] parking lot, took an overdose of his medications, and then realized he didn't want to alone and came into the hospital. Patient's goals for treatment: Notes: Pt. stated to "tighten up even more on my diabetious" and to "get the hell out of here". 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 Identify supports outside of hospital: Notes: Pt. reports "Nico Hossein, [employer] live inside me, music, marijuana and Glory Moffat". Discharge criteria: Notes: Suicidal ideation will resolve and patient will have a plan to safely manage recurrent suicidal ideation. Initial disposition plan/considerations: Notes: Pt. plans to return home to [place]. Master Treatment Plan Required Signatures Psychiatrist signature: Answers: Derick Stevens MD: RN on-shift signature: Answers: RN: Patient signature: Answers: Patient: Date Signed: 08/05/2018 11:31 AM Electronically Signed By:Kenia Lombardo
--- NOTE | 2018-08-05 14:47 | ASMTCMCOM ---
CM Note CM Note Notes: CC met with pt. to complete MTP. Pt. reports he is "relieved to survive for one main reason... Ativan". Pt. reports he attempted suicide due to "mother roge doctor said 'there is nothing we can do for you". Pt. reports seeing Glory Tate at [facility], and reports not having a therapist or psychiatrist. Pt. denied any current legal issues. Pt. reports having "brain damage". Pt. reports he quit drinking after a heart attack 10 years ago, but has relapses three times since then. Pt. reports using THC "everyday, constantly", adding " I love it". Pt. denied dabbing or using concentrates. Pt. reports using cocaine for two years in the 1969's and using LSD "over 100 times" while in high school. Pt. denies any current SI, but reports without Ativan he may feel suicidal in the future. Pt. stated he would like to discharge today if possible. Pt. presents as alert, calm, delayed at times, polite, good eye contact, and cooperative. Staff report pt. sleeping 7 hours and being medication compliant. CC to have pt. sign [id number] for [facility] to secure follow up appointment with Dr. Tate. Date Signed: 08/05/2018 02:46 PM Electronically Signed By:Kenia Lombardo
--- NOTE | 2018-08-05 18:24 | BAPA ---
[f rep st] ADMISSION PSYCHIATRIC ASSESSMENT DATE OF SERVICE: 08/05/2018 CHIEF COMPLAINT: "I would like to give Ativan a go. Its been a miracle medication. All my pain and shaking is gone. I feel like a whole person again. " HISTORY OF PRESENT ILLNESS: The patient is a 68-year-old , disabled man with a history of bipolar and multiple comorbidities, who lives in [place]. The patient presented to the ED on 08/02/2018, with an overdose of his own medication, including Humulin and Coreg. He states that he was in another emergency department requesting Ativan and they would not give it to him. So he left, went to his car, took an overdose of his medications to end his life, then drove to the [facility] ED when he realized he was not . He says that he took 180 tablets of Coreg 25 mg tabs and a large syringe full of Humulin NPH. However, he was charcoaled in the ED and then admitted to the ICU. He was stable in less than 24 hours. He was initially given dextrose and then restarted on his NPH and his Humulin regular. After activated charcoal, he was started restarted on Coreg. He was put on his other antihypertensive with lisinopril, which was restarted in the ICU. He was also continued on a beta-nile and PRINCESS inhibitor, which he was on for chronic systolic congestive heart failure. He was given antiemetic medications for nausea in the ED. But based upon the hospitalist's report, who saw him in the ED, the patient was really asymptomatic for the duration of his stay in the ICU and he was stable. After 24 hours he was transferred to the psychiatric unit since he was on a mental health hold due to his overdose. On the inpatient psychiatric unit, the patient was very happy to be getting Ativan. He again repeated to this MD that Ativan was a "wonder drug." He says that all of his pain is gone and that he feels much better than he has felt in years. The patient has a long history of polysubstance dependence, recently relapsed on alcohol. Uses marijuana on a daily basis. Says, "I love it (cannabis)." The patient's only concern was that he wanted he had heel boots in order to prevent skin breakdown on his feet when he sleeps at night. The patient had very little insight. No acknowledgement of his self-destructive behavior, of his psychological dependence upon medications to fix his problems, and on his symptoms of physiological dependence. No insight into the risks and the potential adverse effects from being on benzodiazepines and consuming alcohol. No insight into the detrimental effects of cannabis on mood, cognition, focus, energy, interest , motivation, ability to complete tasks. MD talked to the patient about some of the mood-related side effects of alcohol , benzodiazepines, and cannabis, including exacerbating anxiety, chronic insomnia, worsening depression and increased thoughts of suicide. The patient did not think that any of these adverse effects were reasons not to take the medication or use alcohol and cannabis. The patient stated that he had no intention of changing any of his behaviors and that was not what he was in the hospital for. Currently the patient is denying sadness, depression, anxiety, panic, feelings of helplessness, hopelessness, worthlessness. He denies any thoughts, plans or intents to hurt himself or anyone else. He denies auditory and visual hallucinations. There are no signs or symptoms of psychosis. He does not have increase in goal-directed activity, decreased need for sleep, racing thoughts, pressured speech, grandiose delusions, elevated or elated mood. PAST PSYCHIATRIC HISTORY: The patient was admitted to the inpatient psychiatric unit from 12/31 to 01/03/2017. He had previously carried a diagnosis of bipolar disorder, type 2. He is currently being treated by a prescriber at [facility], but he could not remember their name. In the past, this prescriber has refused to give him Ativan due to the patient's abuse of this medication. The patient does report several previous suicide attempts by overdose and by hanging. He reports that he has chronic suicidal ideation, which is usually passive. He says he thinks about doing it, but does never really intend to do it. He says that in the past he has threatened to shoot himself with a gun, but he does says that he does not own any firearms. The patient admits that he often threatens suicide as a way to manipulate providers or to get things that he wants, but says that he does not act on them. He says that his suicide attempts in the past have been reckless or impulsive. He said when he got , he tried to hang himself. He says that he drilled a hole in the rafter, tied a rope, climbed a ladder and put the noose around his neck, but says that he started panicking at the thought of actually going through with it, and aborted the attempt. He said after another divorce, he took an overdose of medications, tape recorded a message to his ex-, left a note on the door. The patient had to be airlifted by helicopter and was in a coma for 3 days. CURRENT MEDICATIONS: Albuterol 1 puff q.4-6 hours p.r.n., aspirin 81 mg daily, Coreg 12.5 mg p.o. twice daily, Flexeril 10 mg p.o. twice daily, Voltaren 75 mg p.o. daily, gabapentin 600 mg p.o. three times daily. He takes insulin NPH 20 units SC twice daily, insulin Humulin regular 2 to 8 units three times daily, lisinopril 2.5 mg p.o. daily, fish oil 4000 mg daily, omeprazole 20 mg p.o. at bedtime, Mirapex 1.5 mg p.o. at bedtime, Seroquel 100 mg p.o. daily, 400 mg p.o. at bedtime, Demadex 20 mg p.o.q. 2 days, and Tramadol 25-50 mg p.o. daily p.r.n. PAST MEDICAL HISTORY: Most recently, patient was in the ICU status post reported overdose on Coreg and insulin. He has a significant prior medical history for chronic systolic CHF, atrial fibrillation, post ablation, diabetes type 2, insulin-dependent, restless legs syndrome, chronic pain syndrome, chronic bilateral calf cramping of unclear etiology, hypertension. LABORATORY DATA: 08/03/2018: White cell count was 8.3, hemoglobin 12.8, hematocrit 38.0, platelet count 188. Electrolytes: Sodium was 136, potassium 3.9, chloride 104, anion gap 7, creatinine 0.8, BUN 15, glucose 139, calcium 8.6 , magnesium 1.6. Urine drug screen was positive for marijuana on 08/02/2018, negative for all other drugs of abuse. SOCIAL HISTORY: Patient has twice been . Contemplated suicide after each of his divorces. He has 3 grown children, 2 sons, 1 daughter, 5 grandchildren. He says that he spends Monday through Monday in [place], stays with his elderly mother, shares care with his 2 sisters for her on the weekends. Mother lives in [place]. The patient has a high school education. He has been on SSDI due to PTSD. He says that he works 3 jobs in [place]. 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 Main interest is primarily smoking marijuana and watching birds. He has 25 bird feeders in his yard. FAMILY HISTORY: The patient has 2 maternal uncles who had alcohol use disorder , 1 by suicide. Father was alcoholic and had PTSD. SUBSTANCE USE HISTORY: Patient has a long history of alcohol dependence. He says he was clean and sober, cannot remember for how long, but says that he has relapsed multiple times over the last several years. Does not provide any information about when his last drink was. His blood alcohol level was undetected in the ED on 08/02/2018, in the ICU since then, so he has not had a drink in at least 5 days. He says that he smokes marijuana every day. He says , "I love it." He denies use of other illicit drugs. LEGAL HISTORY: It is unclear if the patient has any pending legal issues. He denies any current charges. MENTAL STATUS EXAMINATION: This is an average height, overweight gentleman who looks older than his chronological age. He is disheveled, wearing scrub bottoms and a hospital gown, wrapped in a hospital blanket, wearing hospital socks. He is alert and oriented x4. His demeanor is pleasant, appropriate. His speech rate and volume are within normal limits. His intellectual function appears to be average based upon his vocabulary, fund of knowledge, and educational history. He currently denies feeling sad, helpless, hopeless, worthless, or anxious. He denies any thoughts, plans or intents to hurt himself or anyone else. He denies any symptoms of psychosis. There are no signs or symptoms of curtis present. His thought process is linear and goal- directed. His insight and judgment are both extremely impaired as evidenced by his recent overdose and his complete lack of insight into the nature and severity of his polysubstance abuse. IMPRESSION: 1. Adjustment disorder, mixed disturbance of conduct and mood. 2. Bipolar disorder type 2 by history. 3. Posttraumatic stress disorder, by history. 4. Substance-induced mood disorder. 5. Cannabis use disorder, severe. 6. Alcohol use disorder, severe. 7. Benzodiazepine abuse, unknown severity. PLAN: 1. Admit to the inpatient Behavioral Health Services Unit on an M1 hold. 2. We will monitor closely for safety. The patient is currently not exhibiting any signs of unsafe behavior. He is acting appropriately. He has not been making any threats or statements of wanting to hurt himself or anyone else. He denies any thoughts, plans or intents to kill himself at this time. 3. Will continue to monitor and observe the patient. We will continue the patient on his current outpatient regimen, which he has been prescribed in the ICU for the last 2 days. We will continue those medications while he is on the inpatient psychiatric unit. 4. Patient is currently being prescribed medications by Dr. Tate at [facility]. The healthcare financial analyst has attempted to contact [facility] and request records. I think it will be important for the patient's primary psychiatrist, who takes over on Monday, to make contact with the patient's provider at [facility] and make sure that everyone is on the same page about what medications are appropriate for this patient and how they will be prescribed, and who will monitor his medications. The patient is difficult to treat because he does have chronic pain symptoms, and a history of polysubstance dependence. He admits to relapsing in using alcohol recently and continues to use marijuana on a daily basis. 5. This MD did talk to the patient at length about non-pharmacological interventions that are appropriate for managing chronic pain, as well as treating anxiety issues. MD suggested treatment such as cognitive behavioral therapy, mindfulness-based therapy, nature-based therapy, art therapy, neuro feedback, progressive muscle relaxation, yoga, Vargas Chi, Qigong. All of these treatments have some degree of efficacy for both chronic pain management, as well as for anxiety and stress management. The patient did not express any interest in exploring options other than taking Ativan and continuing on his current regimen, which is daily high doses of marijuana along with tramadol and other nonsteroidal anti-inflammatories. MD suggested that there might be a better approach that would allow him to reduce his reliance on prescription medications and discontinue his use of medications that carry risk of dependency. The patient said that he was not interested in considering those options at this time. 6. The patient is requesting a consult with Physical Therapy. He would like to be fitted for some pressure boots that will help relieve the pressure on his heels so that he does not get diabetic ulcers. PT consult has been put in and they will be here on Monday. 7. MD spoke with the healthcare financial analyst and was attempting to set the patient up with a referral to [facility], so that the patient can get more comprehensive mental health services, including individual and group psychotherapy, as well as substance use disorder treatment if the patient is willing to go. 8. Estimated length of stay is 1-2 days. The patient's mental health hold did on 08/05/2018. talked to the patient and the patient was willing to stay in the hospital voluntarily so that he could get his physical therapy consult on Monday. Patient would also like a followup appointment scheduled, but he was reluctant to see providers other than the providers that he currently has at [facility]. /[id number]/MODL [id number]
[2018-08-05] MEDS: LORazepam 0.5 MG TAB PO PRN (18:52)
[2018-08-05] MEDS: ASPIRIN 81 MG CHEWABLE TAB PO SCH (21:23)
[2018-08-05] MEDS: QUEtiapine FUMARATE 200 MG TAB PO SCH (21:23)
[2018-08-05] MEDS: PRAMIPEXOLE 1 MG TAB PO SCH (21:23)
[2018-08-06] MEDS: INSULIN NPH HUMAN 100 UNITS/ML SYR SC SCH ×2 (08:16→17:26)
[2018-08-06] MEDS: INSULIN REGULAR HUMAN 100 UNIT/ML UNIT SC SCH ×3 (08:16→17:27)
[2018-08-06] MEDS: QUEtiapine FUMARATE 100 MG TAB PO SCH (08:18)
[2018-08-06] MEDS: CARVEDILOL 25 MG TAB PO SCH ×2 (08:18→17:30)
[2018-08-06] MEDS: GABAPENTIN 300 MG CAP PO SCH ×3 (08:18→19:30)
[2018-08-06] MEDS: PANTOPRAZOLE SODIUM 40 MG TAB PO SCH ×2 (08:19→19:30)
[2018-08-06] MEDS: LISINOPRIL 5 MG TAB PO SCH (08:19)
[2018-08-06] MEDS: TORSEMIDE 20 MG TAB PO SCH (08:19)
--- NOTE | 2018-08-06 09:21 | SOAPPROG ---
SOAP Progress Note Assessment/Plan: Assessment: Adjustment Disorder, with mixed disturbance of mood and conduct, ETOH and THC use, severe. Substance-induced mood disorder. Improvement noted. (see subjective/objective note). Patient could benefit from continued inpatient hospitalization for crisis stabilization, safety, medication evaluation, and to establish safe discharge plan including follow-up appointments. Consider discharge this week. Plan: 1. Psychotropic medications: After reviewing options, risks, and benefits patient agrees to continue current medications. No medication changes at this time as more time is needed to determine ongoing tolerability and efficacy. Plan is to continue to observe patient for response and side effects from medications, and ongoing monitoring and evaluation. 2. Review with patient informed consent and recommendations for psychotropic medication treatment listed below 3. Labs: no additional at this time 4. Therapy: continue milieu and group therapy 5. Further investigation including gathering information from patients relatives and review of past case records to inform treatment plan. 6. Safety/Wellness plan and follow-up outpatient appointments to be established prior to discharge. Next steps are for patient to meet with childcare center administrator to plan a safe discharge plan and establish outpatient services for ongoing treatment. 7. Confer with inpatient treatment team regarding treatment plan. 8. Psychosocial stressors addressed through patient case manager. 9. Legal status: M1 10. Consider discharge this week if patient is in stable condition, safe, and has a safe discharge plan. 11. Substance abuse intervention: cannabis and alcohol PSYCHOTROPIC MEDICATION TREATMENT INFORMED CONSENT and RECOMMENDATIONS: Review nature of condition, diagnosis, and prognosis. Review nature and purpose of psychotropic medication treatment. Review type of psychotropic medications being ordered. Review risk and benefits of psychotropic medication treatment. Review probable length of time patient will need to take medications. Review risk and benefits of not undergoing psychotropic medication treatment. Review alternative treatments to psychotropic medications. Review psychotropic medications contraindications, drug-drug interactions, side effects, and importance of reporting any side effects to a psychiatric provider or nurse during inpatient hospitalization, and upon discharge to patients psychiatric outpatient provider, primary care provider, or other health home health care provider. Review importance of asking a nurse, psychiatric provider, or primary care provider any questions or problems concerning the psychotropic medications. Verify patient understands the information that has been provided, and understands, accepts, and agrees to psychotropic medications. Review patients safety plan and importance of patient to report to staff while hospitalized if patient is ever a danger to self/others, or unable to care for self, and upon discharge, the importance for patient to contact [facility] or [facility], or go to the nearest emergency room, if patient is ever a danger to self/others, or unable to care for self. Recommend that upon discharge patient establish medication management treatment with a psychiatric provider, establishes routine therapy appointments, and follow-up with primary care provider. Verify patient understands and agrees to these recommendations. 08/06/18 09:17 Subjective: Following up with patient for evaluation of mood and safety. Patient reports, "Feeling a lot better. Suppose to see the physical therapy person about some booties for my restless legs." Objective: Vital Signs Temp Pulse Resp BP Pulse Ox 37.1 C 85 16 123/79 H 95 08/06/18 06:00 08/06/18 06:00 08/06/18 06:00 08/06/18 06:00 08/06/18 06:00 SUBSTANCE ABUSE BRIEF INTERVENTION: Brief intervention regarding the risks of cannabis and alcohol abuse is provided to patient with goal to reduce the risk of harm that could result from the continued use of cannabis and alcohol, with the general aim to investigate the problem, raise awareness of problem, develop a solution with the patient, recommend a specific change or activity, and motivate the patient toward change. Assess substance abuse behavior and give supportive advice about harm reduction, recommend a reduction in hazardous/at- risk consumption patterns, and facilitate referrals for additional specialized treatment with childcare center administrator. Intermediate goal is for the patient to quit and attend outpatient substance abuse treatment. Intervention focus on intermediate goals to allow for more immediate success in the treatment process to keep the patient motivated. Review following with patient: Cannabis use risks: Short-term use: impaired short-term memory, impaired motor coordination, altered judgement, in high doses paranoia and psychosis. Long-term use addiction, diminished life satisfaction and achievement, symptoms of chronic bronchitis, and increased risk of chronic psychosis disorders if predisposition to such disorders. In withdrawal anger, aggression irritability, anxiety and nervousness, decreased appetite or weight loss, restlessness, and sleep difficulties with strange dreams. Alcohol/Binge Drinking risks: short-term: injuries, violence, alcohol poisoning, risky sexual behaviors. Long-term: high blood pressure, stroke, liver disease, digestive problems, cancer, learning and memory problems, depression and anxiety, social problems, and alcohol dependence. OUTPATIENT SUBSTANCE ABUSE TREATMENT: Patient referred to outpatient provider and treatment for continued treatment related to substance abuse. MSE: The patient is a well-nourished male looking stated chronological age. Attire is appropriate dress is hospital garb. Grooming status is appropriate. Ambulation is independent. Gait is normal and coordinated. Posture is normal. Eye contact is appropriate. Motor activity is appropriate with purposeful, organized, coordinated movements; with no involuntary movements. Attitude is cooperative. Patient appears attentive and relates well to this interviewer. Language production is spontaneous. R/R/V normal. Articulation is clear. Patient reports mood as okay with congruent affect. Patients thought process is linear and logical with no signs of thought disorder. Patient does not report suicidal/homicidal thoughts, ideas, or plans. Patient denies auditory, visual hallucinations. Patient denies delusions. Patient does not appear to be attending to internal stimuli. Patients attention and concentration are fair. Patient is oriented to person, place, time. Patients insight is poor. Patients judgment is poor. - Time Spent With Patient Time Spent With Patient: 15 minutes, met with patient individually. - Pending Discharge Pending Discharge Within 24 Hours: No Pending Discharge Within 48 Hours: No ICD10 Worksheet Patient Problems: Problems Problem Status Onset Adverse effects of medication Acute CHF (congestive heart failure) Acute Cardiomyopathy Acute Cyclic vomiting syndrome Acute Dehydration Acute Deliberate medication overdose Acute Hypotension Acute Insulin overdose Acute Nausea & vomiting Acute Renal insufficiency Acute Suicidal ideation Acute Suicide attempt by beta nile overdose Acute Supraventricular tachycardia Acute
--- NOTE | 2018-08-06 09:34 | PDMN ---
Medical Necessity Medical necessity: [facility] [id number] Bipolar Disorders, Adult: Inpatient Care, 4 days: 68 yo w/ adjustment d/o, mixed disturbance of conduct and mood, bipolar d/o type II, substance induced mood d/o, cannabis, etoh and benzo abuse on M1 hold for intentional OD. Admit to IP BEH unit.
[2018-08-06] MEDS: LORazepam 0.5 MG TAB PO PRN (09:47)
[2018-08-06] MEDS: ONDANSETRON DISINTEGRATING 4 MG TAB PO PRN (11:10)
--- NOTE | 2018-08-06 14:02 | ASMTCMCOM ---
CM Note CM Note Notes: CC checked in with ct. who reported that he is doing much better. Ct. reported that the Ativan helped with his restless legs syndrome He denied SI. He signed a ОЛ[employer]ГА for [facility]. Date Signed: 08/06/2018 02:01 PM Electronically Signed By:Whit Hooper
[2018-08-06] MEDS: PRAMIPEXOLE 1 MG TAB PO SCH (19:31)
[2018-08-06] MEDS: QUEtiapine FUMARATE 200 MG TAB PO SCH (19:32)
[2018-08-06] MEDS: ASPIRIN 81 MG CHEWABLE TAB PO SCH (19:32)
[2018-08-07 06:44] VITALS: BP 101/59
[2018-08-07] MEDS: INSULIN REGULAR HUMAN 100 UNIT/ML UNIT SC SCH ×2 (07:43→12:13)
[2018-08-07] MEDS: INSULIN NPH HUMAN 100 UNITS/ML SYR SC SCH (07:46)
[2018-08-07] MEDS: PANTOPRAZOLE SODIUM 40 MG TAB PO SCH (08:14)
[2018-08-07] MEDS: GABAPENTIN 300 MG CAP PO SCH (08:14)
[2018-08-07] MEDS: LISINOPRIL 5 MG TAB PO SCH (08:14)
[2018-08-07] MEDS: QUEtiapine FUMARATE 100 MG TAB PO SCH (08:14)
[2018-08-07] MEDS: TORSEMIDE 20 MG TAB PO SCH (08:14)
[2018-08-07] MEDS: CARVEDILOL 25 MG TAB PO SCH (08:14)
[2018-08-07] MEDS: ONDANSETRON DISINTEGRATING 4 MG TAB PO PRN (11:36)
[2018-08-07] MEDS: LORazepam 0.5 MG TAB PO PRN (11:36)
--- NOTE | 2018-08-07 14:10 | ASMTBHDC ---
Notes Note: Notes: CC met briefly with pt. Pt. attending treatment team planning this morning. Pt. states he is ready to discharge and his current medications are "perfect". Pt. stated he plans to stay with his mom for a "little bit" before returning home. Pt. requested a cab home. Pt. spoke with staff about adjusting his DNR, which staff informed pt. he can do after he discharges. Pt. presents as alert, calm, friendly, difficult to understand at times, polite and cooperative. Staff report pt. sleeping 7 hours and being medication compliant. Pt. has a follow up appointment with Dr. Tate (PCP) on 08/17/18 at 2:45pm. CC to order a Ly[employer] for the pt. CC provided pt. with [facility] outpatient physical rehabilitation, as requested. Date Signed: 08/07/2018 02:09 PM Electronically Signed By:Kenia Lombardo
--- NOTE | 2018-08-08 18:24 | BDS ---
[f rep st] BEHAVIORAL HEALTH DISCHARGE SUMMARY REASON FOR ADMISSION: Patient is a 68-year-old male with a history of bipolar disorder. Debbi duron was admitted to the medical service on 08/02/2018 due to overdosing on insulin and blood pressure m edication. He states that he was angry because he was requesting Ativan in the emergency department and no one would give him any. He stated this was the only thing that helps him and that he felt peo ple were unnecessarily depriving him of that. He took this overdose, and he then woke up and stated that he should probably go to the hospital because he did not . He was hospitalized for 2 days, r estabilized medically, and then transferred to [facility] inpatient unit for further evaluation of his suicidality. A full description of the events preceding admission can be found in Dr. Stevens's admission history dated 08/05/2018. ADMITTING DIAGNOSES: Per Dr. Stevens: 1. Adjustment disorder with mixed disturbance of conduct and mood. 2. Bipolar disorder, type II by history. 3. Posttraumatic stress disorder by history. 4. Substance-induced mood disorder. 5. Cannabis use disorder, severe. 6. Alcohol use disorder, severe. 7. Benzodiazepine abuse, unknown severity. ADMITTING PHYSICAL EXAM: There was no physical exam on admission to the [facility] i npatient unit due to the proximity of his recent inpatient stay. ADMISSION LABORATORY: No additional labs were drawn. HOSPITAL COURSE: Patient was admitted to the [facility] inpatient unit on an M1 hold . He was pleasant, cooperative, engaging. He stated that he simply wanted to be taken seriously and that he needed to have lorazepam. He was given 1 mg of lorazepam every 6 to 8 hours during his stay and stated that this was tremendously helpful. He was also continued on his previous outpatient med ications, including gabapentin, Seroquel, and his medical medications. The patient's hospitalization was uncomplicated. He was pleasant and cooperative throughout, stated that his suicidal thoughts dillard d abated and that he was ready to discharge. We were able to formulate a reasonable discharge plan, and he was anxious to get going. He was going to stay in [place] with his mother for several days be fore returning to his home in [place]. CONDITION AT DISCHARGE: Stable. His affect was euthymic, stable, and appropriate. He was voicing n o thoughts of suicide. DISCHARGE MEDICATIONS: Lorazepam 0.5 mg to 1 b.i.d. p.r.n., Protonix 40 mg b.i.d., Mirapex 1.5 mg at h.s., Seroquel 100 mg daily 400 mg at h.s., Demadex 20 mg every other day, Ultram 25 to 50 mg daily p.r.n. pain, Zestril 5 mg daily, Humulin sliding scale insulin NPH 20 units b.i.d., gabapentin 600 mg t.i.d., diclofenac sodium 75 mg daily, Flexeril 10 mg b.i.d. p.r.n., Coreg 12.5 mg b.i.d., aspirin 8 1 mg daily, and albuterol inhaler 1 puff q.4 p.r.n. asthma. DISCHARGE DIAGNOSES: 1. Bipolar II disorder by history. 2. Recent suicide attempt via overdose. 3. Insulin-dependent diabetes. 4. Hypertension. 5. Gastroesophageal reflux disease. 6. Unspecified anxiety disorder. 7. Posttraumatic stress disorder by history. 8. Marginal supports. 9. Advanced age. 10. Chronic illness. DISPOSITION: Patient left hospital via Uber to go to his mother's home in [facility]. FOLLOWUP: With [facility] as scheduled by child care director. The patient was giv en written instructions as to dates and times of appointments at the time of discharge. CODE STATUS: The patient was full code throughout his stay. The patient was administered cannabis, alcohol, nicotine, and metabolic screenings. He declined furt her interventions in these areas despite his clear problems with cannabis and his diabetes. The patient was discharged at the expiration of his M1 hold. /[id number]/MODL
== END 2018-08-07 15:25 | disposition home or self-care (01) | DRG 885 ==
LOC: BBEH 15:40
PROVIDERS: ADMIT Psychiatry & Neurology Psychiatry; ATTEND Psychiatry & Neurology Psychiatry
DX: F31.81 Bipolar II disorder (principal); I11.0 Hypertensive heart disease with heart failure; I50.22 Chronic systolic (congestive) heart failure; F43.25 Adjustment disorder with mixed disturbance of emotions and conduct; E11.9 Type 2 diabetes mellitus without complications; K21.9 Gastro-esophageal reflux disease without esophagitis; F41.9 Anxiety disorder, unspecified; F43.10 Post-traumatic stress disorder, unspecified; G89.4 Chronic pain syndrome; G25.81 Restless legs syndrome; Z79.4 Long term (current) use of insulin
CPT/HCPCS: J1815